=== PATIENT | male | born 1930 | race Caucasian/White ===

== ENCOUNTER 2016-10-16 15:20 | Observation (INO) | payer MEDICARE, BC ==
[~2016-10-16] VITALS: Ht 170.2 cm; Wt 90.9 kg
[2016-10-16] VITALS (8 sets, daily range): BP systolic 154–172; BP diastolic 77–91; PULSE 66–85; RESP 16–18; TEMP 97.6–98.4; O2SAT 95–100
[~2016-10-16 15:20] MED LIST: ACET500T13 PO; AGGR20025 PO; ALPR0.25 PO; ISOS30TA3 PO; PRED1SUS EACH EYE; PROP10TA6 PO; SINE25TA PO; ZOCO40TA PO
[2016-10-16] MEDS ORDERED: SODIUM CHLOR 0.9% 1000 ML INJ 1,000 ML IV ONE (15:43)
--- NOTE | 2016-10-16 15:58 | PD ---
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 Started approximately 14 45 however his states his been happening on and off all day today and he had complete resolution and then it restarted at approximately 14 45. The patient apparently is confused at baseline according to , he is very inattentive. Patient's stated that since he got better she waited until this afternoon when the symptoms recurred call Dr. Flores his neurologist and recommended over the phone to come to the emergency department. 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) Genitourinary Surgery: Yes (Bladder CA) Social History Alcohol Use: No Tobacco Use: No Substance Use: No Allergies-Medications (Allergen,Severity, Reaction): Coded Allergies: pseudoephedrine (Verified Adverse Reaction, Unknown, urinary retention, ) Reported Meds & Prescriptions Reported Meds & Active Scripts Active Reported Eliquis (Apixaban) 2.5 Mg Tab 2.5 Mg PO BID Vitamin D3 (Cholecalciferol) 1,000 Unit Tab 2,000 Units PO BID Pred Forte Opth 1% (Prednisolone Acetate Opth 1%) 1% Susp 1 Drop EACH EYE DAILY Zocor (Simvastatin) 40 Mg Tab 20 Mg PO HS Alprazolam 0.25 Mg Tab 0.25 Mg PO DAILY PRN Alprazolam 0.25 Mg Tab 0.25 Mg PO BID Sinemet (Carbidopa-Levodopa) 25-100 Mg Tab 1 Tab PO QID Isosorbide Mononitrate ER (Isosorbide Mononitrate) 30 Mg Chapis 30 Mg PO DAILY Propranolol (Propranolol HCl) 10 Mg Tab 10 Mg PO Q12HR Review of Systems Except as stated in HPI: all other systems reviewed are Neg Physical Exam Narrative GENERAL: Well-developed well-nourished no obvious distress, confused. SKIN: Focused skin assessment warm/dry. HEAD: Atraumatic. Normocephalic. EYES: Pupils equal and round. No scleral icterus. No injection or drainage. ENT: No nasal bleeding or discharge. Mucous membranes pink and moist. NECK: Trachea midline. No JVD. CARDIOVASCULAR: Regular rate and rhythm. No murmur appreciated. RESPIRATORY: No accessory muscle use. Clear to auscultation. Breath sounds equal bilaterally. GASTROINTESTINAL: Abdomen soft, non-tender, nondistended. Hepatic and splenic margins not palpable. MUSCULOSKELETAL: No obvious deformities. No clubbing. No cyanosis. No edema. NEUROLOGICAL: Awake and alert oriented to self only. Cranial nerves II through XII are grossly intact and nonfocal, mild inattention. Difficulty finding words and slow to respond. Follows commands in all 4 extremities and 5 out of 5 strength in all 4 extremity's. Total NIH stroke scale of 3. PSYCHIATRIC: Appropriate mood and affect; insight and judgment normal. Data Data Last Documented VS Vital Signs Date Time Temp Pulse Resp B/P Pulse Ox O2 Delivery O2 Flow Rate FiO2 10/16/16 17:57 97.9 66 17 167/84 99 Room Air 10/16/16 16:00 2 Orders Activity Bed Rest (10/16/16 ) Electrocardiogram (10/16/16 ) I-Stat Creatinine (10/16/16 15:43) I-Stat Profile (10/16/16 15:43) Prothrombin Time / Inr (Pt) (10/16/16 15:43) Act Partial Throm Time (Ptt) (10/16/16 15:43) Complete Blood Count With Diff (10/16/16 15:43) Fibrinogen (10/16/16 15:43) Creatine Kinase (Cpk) (10/16/16 15:43) Troponin I (10/16/16 15:43) Ua Includes Microscopic (10/16/16 15:43) Drug Screen, Random Urine (10/16/16 15:43) Type And Screen (10/16/16 15:43) Ct Brain W/O Iv Contrast(Rout) (10/16/16 ) Cta Brain W Iv Contrast W 3d (10/16/16 15:43) Cta Neck W Iv Contrast W 3d (10/16/16 15:43) Consult Neurology (10/16/16 ) Blood Glucose (10/16/16 15:43) Ecg Monitoring (10/16/16 15:43) Neuro Checks Q2HX12,Q4H (10/16/16 15:43) Nursing Bedside Swallow Assess .ONCE (10/16/16 15:43) Iv Access Insert/Monitor (10/16/16 15:43) NPO (10/16/16 15:43) Oximetry (10/16/16 15:43) Oxygen Administration (10/16/16 15:43) Sodium Chlor 0.9% 1000 Ml Inj (Ns 1000 M (10/16/16 15:43) Resp Oxygen Florin C Titrat 1-4 L (10/16/16 15:43) Cath For Specimen (10/16/16 15:43) Basic Metabolic Panel (Bmp) (10/16/16 15:43) (Hub Use Only)Inp Phy Cons/Ref (10/16/16 ) Iohexol 350 Inj (Omnipaque 350 Inj) (10/16/16 16:02) Admit Order (Ed Use Only) (10/16/16 ) Labs Laboratory Tests Test 10/16/16 10/16/16 15:48 15:50 White Blood Count 5.3 TH/MM3 Red Blood Count 4.34 MIL/MM3 Hemoglobin 13.6 GM/DL Bedside Hemoglobin 13.9 G/DL Hematocrit 39.7 % Bedside Hematocrit 41.0 % Mean Corpuscular Volume 91.4 FL Mean Corpuscular Hemoglobin 31.4 PG Mean Corpuscular Hemoglobin 34.3 % Concent Red Cell Distribution Width 14.5 % Platelet Count 145 TH/MM3 Mean Platelet Volume 8.2 FL Neutrophils (%) (Auto) 54.5 % Lymphocytes (%) (Auto) 33.1 % Monocytes (%) (Auto) 10.5 % Eosinophils (%) (Auto) 1.2 % Basophils (%) (Auto) 0.7 % Neutrophils # (Auto) 2.9 TH/MM3 Lymphocytes # (Auto) 1.7 TH/MM3 Monocytes # (Auto) 0.6 TH/MM3 Eosinophils # (Auto) 0.1 TH/MM3 Basophils # (Auto) 0.0 TH/MM3 CBC Comment DIFF FINAL Differential Comment Prothrombin Time 11.6 SEC Prothromb Time International 1.0 RATIO Ratio Activated Partial 27.1 SEC Thromboplast Time Fibrinogen 265 mg/dL Bedside Sodium 138 MMOL/L Sodium Level 138 MEQ/L Bedside Potassium 4.2 MMOL/L Potassium Level 4.2 MEQ/L Bedside Chloride 100 MMOL/L Chloride Level 103 MEQ/L Carbon Dioxide Level 27.7 MEQ/L Anion Gap 7 MEQ/L Bedside Blood Urea Nitrogen 10 MG/DL Blood Urea Nitrogen 10 MG/DL Creatinine 1.05 MG/DL Bedside Creatinine 1.0 MG/DL Estimat Glomerular Filtration 67 ML/MIN Rate Bedside Glucose 101 MG/DL Random Glucose 98 MG/DL Calcium Level 9.4 MG/DL Total Creatine Kinase 46 U/L Troponin I LESS THAN 0.02 NG/ML Blood Type A POSITIVE Antibody Screen NEGATIVE Urine Color YELLOW Urine Turbidity CLEAR Urine pH 6.5 Urine Specific [place] 1.036 Urine Protein NEG mg/dL Urine Glucose (UA) NEG mg/dL Urine Ketones NEG mg/dL Urine Occult Blood SMALL Urine Nitrite NEG Urine Bilirubin NEG Urine Urobilinogen LESS THAN 2.0 MG/DL Urine Leukocyte Esterase NEG Urine RBC 3 /hpf Urine WBC 2 /hpf Urine Squamous Epithelial <1 /hpf Cells Urine Opiates Screen NEG Urine Barbiturates Screen NEG Urine Amphetamines Screen NEG Urine Benzodiazepines Screen POS Urine Cocaine Screen NEG Urine Cannabinoids Screen NEG MDM Medical Screen Exam Complete: Yes Emergency Medical Condition: Yes Differential Diagnosis Acute CVA, subacute CVA, worsening vascular dimension, TIA Narrative Course Patient roomed emergency department, waxing and waning mental status today, coarse states that current symptoms started about 1445 which is within the stroke alert window and the patient will be stroke alerted. Patient was discussed with Dr. Matos and certainly is not a candidate for TPA. Discussed with Dr. Ayaz Howell and there is no embolic event amenable to his intervention. Patient remains with dysarthria which states is increased from baseline. Discussed with hospitalist for admission. Last 24 hours Impressions Neck CTA 10/16/16 [id number] Signed Impressions: Service Date/Time: Sunday, October 16, 2016 15:55 - CONCLUSION: 1. Mild atherosclerotic plaquing involving the carotid bifurcations and distal vertebral arteries. No hemodynamically significant carotid artery stenosis is seen. Alessandro Howell MD Head CTA 10/16/16 1543 Signed Impressions: Service Date/Time: Sunday, October 16, 2016 15:55 - CONCLUSION: No filling defects to suggest thrombus or embolus. Hai Rutherford Jr., MD Head CT 10/16/16 0000 Signed Impressions: Service Date/Time: Wednesday, October 16, 2016 15:48 - CONCLUSION: Negative for an acute process. Berto Howell MD FACR Stroke Alert NIHSS NIH Stroke Scale Result: 3 NIHSS Time Completed: 15:30 Thrombolytic Contraindications Contraindications Comment: On Eliquis, no definitive timeline, stroke less than 3 months ago. Diagnosis Diagnosis: Primary Impression: Acute ischemic stroke Admitting Physician Requests: Admit Condition: Stable Timur Pedraza MD Oct 16, 2016 15:58
--- NOTE | 2016-10-16 16:00 | RADRPT ---
EXAM DATE/TIME: 10/16/2016 15:48 [facility] COMPARISON: CT BRAIN W/O CONTRAST, August 21, 2016, 15:50. INDICATIONS : Stroke alert, dysarthria. RADIATION DOSE: 56.35 CTDIvol (mGy) This report was called by to Dr. Ramirez at 1545 MEDICAL HISTORY : Non-responsive. SURGICAL HISTORY : Non-responsive. ENCOUNTER: Initial ACUITY: 1 day PAIN SCALE: Non-responsive LOCATION: cranial TECHNIQUE: Multiple contiguous axial images were obtained of the head. Using automated exposure control and adj ustment of the mA and/or kV according to patient size, radiation dose was kept as low as reasonably a chievable to obtain optimal diagnostic quality images. DICOM format image data is available electro nically for review and comparison. FINDINGS: CEREBRUM: The ventricles are normal for age. No evidence of midline shift, mass lesion, hemorrhage or acute in farction. No extra-axial fluid collections are seen. POSTERIOR FOSSA: The cerebellum and brainstem are intact. The 4th ventricle is midline. The cerebellopontine angle i s unremarkable. EXTRACRANIAL: The visualized portion of the orbits is intact. SKULL: The calvaria is intact. No evidence of skull fracture. CONCLUSION: Negative for an acute process. Berto Howell MD FACR on October 16, 2016 at 15:57 Board Certified Radiologist. This report was verified electronically.
[2016-10-16] MEDS ORDERED: IOHEXOL 350 MG/ML 10 ML VIAL (for RAD DIAG) IV ONE (16:02)
[2016-10-16 16:04] LABS: AUTOMATED NEUTROPHIL # 2.9 TH/MM3 (1.8-7.7); BASOPHIL % 0.7 % (0.0-2.0); EOSINOPHIL # 0.1 TH/MM3 (0-0.4); EOSINOPHIL % 1.2 % (0.0-4.0); HEMATOCRIT 39.7 % (39.0-51.0); HEMO FLAGS DIFF FINAL; LYMPH % 33.1 % (9.0-44.0); LYMPHOCYTE # 1.7 TH/MM3 (1.0-4.8); MEAN CELL VOLUME 91.4 FL (80.0-100.0); MEAN CORPUSCULAR HEMOGLOBIN 31.4 PG (27.0-34.0); MEAN CORPUSCULAR HGB CONC 34.3 % (32.0-36.0); MONO % 10.5 % (0.0-8.0); NEUT % 54.5 % (16.0-70.0); PLATELET COUNT 145 TH/MM3 (150-450); RED BLOOD COUNT 4.34 MIL/MM3 (4.50-5.90); RED CELL DISTRIBUTION WIDTH 14.5 % (11.6-17.2); WHITE BLOOD COUNT 5.3 TH/MM3 (4.0-11.0)
[2016-10-16 16:06] LABS: I-STAT POTASSIUM 4.2 MMOL/L (3.5-4.9); I-STAT SODIUM 138 MMOL/L (138-146)
[2016-10-16 16:14] LABS: APTT (PATIENT) 27.1 SEC (24.3-30.1); PROTHROMBIN TIME - PATIENT 11.6 SEC (9.8-11.6)
--- NOTE | 2016-10-16 16:19 | RADRPT ---
EXAM DATE/TIME: 10/16/2016 15:55 [facility] COMPARISON: No previous studies available for comparison. INDICATIONS : Stroke alert, dysarthria. IV CONTRAST: 50 cc Omnipaque 350 (iohexol) IV ; Cumulative dose for multiple exams. RADIATION DOSE: 16.11 CTDIvol (mGy) ; Combined studies MEDICAL HISTORY : Non-responsive. SURGICAL HISTORY : Non-responsive. ENCOUNTER: Initial ACUITY: 1 day PAIN SCALE: Non-responsive LOCATION: cranial TECHNIQUE: Volumetric scanning was performed using a multi-row detector CT scanner. The data was post processed with a variety of visualization algorithms including full volume maximum intensity projection, multi -planar sliding thin slab reformation, curved planar reformation, and surface rendering techniques. Using automated exposure control and adjustment of the mA and/or kV according to patient size, radiat ion dose was kept as low as reasonably achievable to obtain optimal diagnostic quality images. DICO M format image data is available electronically for review and comparison. FINDINGS: There is excellent visualization of the major intracranial arteries out to the second-order branch ve ssels. No filling defects to suggest thrombus or embolus. Scattered atherosclerotic plaque most abund ant within the intercavernous ICAs. No hemodynamically significant stenosis observed. There is no erlin dence for aneurysm, vessel truncation or stenosis, and no evidence for vascular malformation. CONCLUSION: No filling defects to suggest thrombus or embolus. Hai Rutherford Jr., MD on October 16, 2016 at 16:13 Board Certified Radiologist. This report was verified electronically.
[2016-10-16 16:21] LABS: ANION GAP 7 MEQ/L (5-15); BICARBONATE 27.7 MEQ/L (21.0-32.0); BLOOD UREA NITROGEN 10 MG/DL (7-18); CHLORIDE 103 MEQ/L (98-107); GLOMERULAR FILTRATION RATE 67 ML/MIN (>89); POTASSIUM 4.2 MEQ/L (3.5-5.1); SODIUM (NA) 138 MEQ/L (136-145)
[2016-10-16 16:29] LABS: CREATINE KINASE 46 U/L (39-308)
[2016-10-16] MEDS ORDERED: VITA100018 PO (16:34)
[2016-10-16] MEDS ORDERED: APIX2.5T PO (16:35)
--- NOTE | 2016-10-16 16:54 | RADRPT ---
EXAM DATE/TIME: 10/16/2016 15:55 [facility] COMPARISON: CT BRAIN W/O CONTRAST, October 16, 2016, 15:48. INDICATIONS : Stroke alert, dysarthria. IV CONTRAST: 50 cc Omnipaque 350 (iohexol) IV ; Cumulative dose for multiple exams. RADIATION DOSE: 16.11 CTDIvol (mGy) ; Combined studies MEDICAL HISTORY : Non-responsive. SURGICAL HISTORY : Non-responsive. ENCOUNTER: Initial ACUITY: 1 day PAIN SCALE: Non-responsive LOCATION: neck Elevated flow velocities and ICA/CCA ratios have been found to correlate with increased degrees of vessel stenosis, calculated as percentage of diameter relative to a normal segment of distal ICA/CCA. TECHNIQUE: Volumetric scanning was performed using a multirow detector CT scanner. The data was post processed with a variety of visualization algorithms including full-volume maximum intensity projection, multip lanar sliding thin-slab reformation, curved-planar reformation, and surface-rendering techniques. Us ing automated exposure control and adjustment of the mA and/or kV according to patient size, radiatio n dose was kept as low as reasonably achievable to obtain optimal diagnostic quality images. DICOM f ormat image data is available electronically for review and comparison. FINDINGS: AORTIC ARCH: There is a three-vessel origin of the great vessels from the aorta. No evidence of ostial narrowing. RIGHT CAROTID: The common carotid is widely patent. There is mild atherosclerotic plaquing of the bifurcation. This results in minimal stenosis of the origin of the right internal carotid this is estimated to be in th e range of only approximately 10%. The external carotid is widely patent. The more cephalad portion o f internal carotid is patent throughout its course. LEFT CAROTID: The common carotid is widely patent. There is minimal plaquing at the bifurcation. No significant serina nosis is seen. The more cephalad portion of internal carotid is widely patent. The external carotid i s patent. VERTEBRALS: The vertebral arteries have a symmetric diameter. There is atherosclerotic plaquing in both distal ve rtebral arteries. No stenotic lesions are seen. CONCLUSION: 1. Mild atherosclerotic plaquing involving the carotid bifurcations and distal vertebral arteries. No hemodynamically significant carotid artery stenosis is seen. Alessandro Howell MD on October 16, 2016 at 16:49 Board Certified Radiologist. This report was verified electronically.
[2016-10-16 17:10] LABS: BLOOD, URINE SMALL (NEG); GLUCOSE,URINE NEG (NEG); KETONE, URINE NEG (NEG); NITRITE,URINE NEG (NEG); PH, URINE 6.5 (5.0-8.5); SQUAMOUS EPITHELIAL CELL URINE <1 /hpf (0-5); URINE COLOR YELLOW (YELLW/STRAW)
[2016-10-16] MEDS ORDERED: ALPRAZolam 0.25 MG TAB PO PRN (18:15)
[2016-10-16] MEDS ORDERED: SODIUM CHLORIDE 0.9% FLUSH 10 ML FLUSH IV FLUSH PRN (18:30)
[2016-10-16] MEDS ORDERED: NALOXONE HCL 0.4 MG/ML AMP IV PRN (18:30)
[2016-10-16] MEDS ORDERED: SODIUM CHLORIDE 0.9% FLUSH 5 ML FLUSH IV FLUSH PRN (18:30)
[2016-10-16] MEDS ORDERED: PROCHLORPERAZINE 25 MG SUPP RECTAL PRN (18:30)
[2016-10-16] MEDS ORDERED: LACTULOSE SYRUP 20 GM/30 ML CUP PO PRN (18:30)
[2016-10-16] MEDS ORDERED: ACETAMINOPHEN 325 MG TAB PO PRN (18:30)
[2016-10-16] MEDS ORDERED: BISACODYL 10 MG SUPP RECTAL PRN (18:30)
[2016-10-16] MEDS ORDERED: SENNOSIDES 8.6 MG TAB PO PRN (18:30)
[2016-10-16] MEDS ORDERED: GLUCAGON 1 MG/ML VIAL OTHER PRN (18:30)
[2016-10-16] MEDS ORDERED: MAGNESIUM HYDROXIDE SUSP 30 ML CUP PO PRN (18:30)
[2016-10-16] MEDS ORDERED: ONDANSETRON HCL 4 MG/2 ML VIAL IVP PRN (18:30)
--- NOTE | 2016-10-16 18:32 | HHI.HP ---
[facility] Ad[facility] Diagnosis Diagnoses: (1) Chronic anticoagulation (2) Hypertension (3) CAD (coronary artery disease) (4) Hyperlipidemia (5) Anxiety (6) Parkinsons (7) HTN (hypertension) (8) Transient ischemic attack Chief Complaint: Neuro symptoms neuro deficits Travel History International Travel<30 Days: No Contact w/Intl Traveler <30 Da: No Traveled to Known Affected Are: No History of Present Illness Patient is an 86-year-old male with a history of multiple TIAs in the past on Eliquis presents to the emergency department with acute dysarthria and difficulty finding words. Started approximately 14 45 however his states his been happening on and off all day today and he had complete resolution and then it restarted at approximately 14 45. The patient apparently is confused at baseline according to , he is very inattentive. Patient's stated that since he got better she waited until this afternoon when the symptoms recurred call Dr. Flores his neurologist and recommended over the phone to come to the emergency department. and patient state that he has stents from 1994. That are metal stents. Patient has been told that he IS not able to have an MRI Review of Systems Constitutional: COMPLAINS OF: Fatigue, DENIES: Diaphoretic episodes, Fever, Weight gain, Weight loss, Chills, Dizziness, Change in appetite Endocrine: DENIES: Heat/cold intolerance, Polydipsia, Polyuria, Polyphagia Eyes: DENIES: Blurred vision, Diplopia, Eye inflammation Ears, nose, mouth, throat: DENIES: Tinnitus, Hearing loss, Vertigo, Nasal discharge, Oral lesions, Throat pain, Hoarseness, Ear Pain Respiratory: DENIES: Apneas, Cough, Snoring, Wheezing, Hemoptysis, Sputum production Cardiovascular: DENIES: Chest pain, Palpitations, Syncope, Dyspnea on Exertion , PND, Lower Extremity Edema Gastrointestinal: DENIES: Abdominal pain, Black stools, Bloody stools, Constipation, Diarrhea Musculoskeletal: COMPLAINS OF: Neck pain, DENIES: Joint pain, Muscle aches, Stiffness, Joint Swelling, Back pain Integumentary: DENIES: Abnormal pigmentation, Nail changes Hematologic/lymphatic: DENIES: Bruising, Lymphadenopathy Immunologic/allergic: DENIES: Eczema, Urticaria Neurologic: COMPLAINS OF: Abnormal gait, Speech Problems, Tremor, DENIES: Headache, Localized weakness, Paresthesias, Seizures Psychiatric: COMPLAINS OF: Confusion, DENIES: Anxiety, Mood changes, Depression, Hallucinations, Agitation, Suicidal Ideation, Homicidal Ideation Past Family Social History Past Medical History Chronic anticoagulation with Eliquis Bladder cancer History of cardiac catheterization with stents 2 bare-metal of 1994 Hyperlipidemia History of chemotherapy for bladder cancer History of 3 prior TIAs 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 Past Surgical History Cardiac surgery and history of [place] and history of stents 2 History of corneal transplant History of bladder cancer surgery Reported Medications Reported Meds & Active Scripts Active Reported Eliquis (Apixaban) 2.5 Mg Tab 2.5 Mg PO BID Vitamin D3 (Cholecalciferol) 1,000 Unit Tab 2,000 Units PO BID Pred Forte Opth 1% (Prednisolone Acetate Opth 1%) 1% Susp 1 Drop EACH EYE DAILY Zocor (Simvastatin) 40 Mg Tab 20 Mg PO HS Alprazolam 0.25 Mg Tab 0.25 Mg PO DAILY PRN Alprazolam 0.25 Mg Tab 0.25 Mg PO BID Sinemet (Carbidopa-Levodopa) 25-100 Mg Tab 1 Tab PO QID Isosorbide Mononitrate ER (Isosorbide Mononitrate) 30 Mg Chapis 30 Mg PO DAILY Propranolol (Propranolol HCl) 10 Mg Tab 10 Mg PO Q12HR Allergies: Coded Allergies: pseudoephedrine (Verified Adverse Reaction, Unknown, urinary retention, ) Active Ordered Medications Current Medications Medications (Trade) Dose Ordered Sig/Redd Route PRN Reason Start Time Stop Time Status Last Admin Dose Admin Sodium Chloride (NS 1000 ml Inj) 1,000 ml @ 70 mls/hr [id number] ONCE IV 10/16/16 15:43 10/17/16 06:00 10/16/16 16:00 Current Medications Sodium Chloride (NS 1000 ml Inj) 1,000 ml @ 70 mls/hr [id number] ONCE IV Last administered on 10/16/16t 16:00; Start 10/16/16 at 15:43; Stop 10/17/16 at 06:00 Iohexol (Omnipaque 350 Inj) 50 ml STK-MED ONCE IV Last administered on t 16:02; Start 10/16/16 at 16:02; Stop 10/16/16 at 16:03; Status DC Family History Hypertension Social History Denies any tobacco alcohol or illicits Physical Exam Vital Signs Vital Signs Date Time Temp Pulse Resp B/P Pulse Ox O2 Delivery O2 Flow Rate FiO2 10/16/16 17:57 97.9 66 17 167/84 99 Room Air 10/16/16 16:30 97.8 78 16 158/82 99 Room Air 10/16/16 16:00 97.8 68 17 161/77 98 Room Air 2 10/16/16 15:46 98 Nasal Cannula 2 10/16/16 15:46 70 18 99 Room Air 10/16/16 15:44 68 17 97 Room Air 10/16/16 15:28 98.4 84 16 154/91 99 Physical Exam GENERAL: This is a well-nourished, well-developed patient, in no apparent distress. SKIN: No rashes, ecchymoses or lesions. Cool and dry. HEAD: Atraumatic. Normocephalic. No temporal or scalp tenderness. EYES: Pupils equal round and reactive. Extraocular motions intact. No scleral icterus. No injection or drainage. ENT: Nose without bleeding, purulent drainage or septal hematoma. Throat without erythema, tonsillar hypertrophy or exudate. Uvula midline. Airway patent. NECK: Trachea midline. No JVD or lymphadenopathy. Supple, nontender, no meningeal signs. CARDIOVASCULAR: Regular rate and rhythm without murmurs, gallops, or rubs. RESPIRATORY: Clear to auscultation. Breath sounds equal bilaterally. No wheezes , rales, or rhonchi. GASTROINTESTINAL: Abdomen soft, non-tender, nondistended. No hepato-splenomegaly , or palpable masses. No guarding. MUSCULOSKELETAL: Extremities without clubbing, cyanosis, or edema. No joint tenderness, effusion, or edema noted. No calf tenderness. Negative Homans sign bilaterally. NEUROLOGICAL: Awake and alert. Cranial nerves II through XII intact. Motor and sensory grossly within normal limits. Five out of 5 muscle strength in all muscle groups. Normal speech. Laboratory Laboratory Tests Test 10/16/16 10/16/16 15:48 15:50 White Blood Count 5.3 Red Blood Count 4.34 Hemoglobin 13.6 Bedside Hemoglobin 13.9 Hematocrit 39.7 Bedside Hematocrit 41.0 Mean Corpuscular Volume 91.4 Mean Corpuscular Hemoglobin 31.4 Mean Corpuscular Hemoglobin 34.3 Concent Red Cell Distribution Width 14.5 Platelet Count 145 Mean Platelet Volume 8.2 Neutrophils (%) (Auto) 54.5 Lymphocytes (%) (Auto) 33.1 Monocytes (%) (Auto) 10.5 Eosinophils (%) (Auto) 1.2 Basophils (%) (Auto) 0.7 Neutrophils # (Auto) 2.9 Lymphocytes # (Auto) 1.7 Monocytes # (Auto) 0.6 Eosinophils # (Auto) 0.1 Basophils # (Auto) 0.0 CBC Comment DIFF FINAL Differential Comment Prothrombin Time 11.6 Prothromb Time International 1.0 Ratio Activated Partial 27.1 Thromboplast Time Fibrinogen 265 Bedside Sodium 138 Sodium Level 138 Bedside Potassium 4.2 Potassium Level 4.2 Bedside Chloride 100 Chloride Level 103 Carbon Dioxide Level 27.7 Anion Gap 7 Bedside Blood Urea Nitrogen 10 Blood Urea Nitrogen 10 Creatinine 1.05 Bedside Creatinine 1.0 Estimat Glomerular Filtration 67 Rate Bedside Glucose 101 Random Glucose 98 Calcium Level 9.4 Total Creatine Kinase 46 Troponin I LESS THAN 0.02 Blood Type A POSITIVE Antibody Screen NEGATIVE Urine Color YELLOW Urine Turbidity CLEAR Urine pH 6.5 Urine Specific Union 1.036 Urine Protein NEG Urine Glucose (UA) NEG Urine Ketones NEG Urine Occult Blood SMALL Urine Nitrite NEG Urine Bilirubin NEG Urine Urobilinogen LESS THAN 2.0 Urine Leukocyte Esterase NEG Urine RBC 3 Urine WBC 2 Urine Squamous Epithelial <1 Cells Urine Opiates Screen NEG Urine Barbiturates Screen NEG Urine Amphetamines Screen NEG Urine Benzodiazepines Screen POS Urine Cocaine Screen NEG Urine Cannabinoids Screen NEG Result Diagram: 10/16/16 1548 10/16/16 1548 Imaging Last Impressions Neck CTA 10/16/16 1543 Signed Impressions: Service Date/Time: Sunday, October 16, 2016 15:55 - CONCLUSION: 1. Mild atherosclerotic plaquing involving the carotid bifurcations and distal vertebral arteries. No hemodynamically significant carotid artery stenosis is seen. Alessandro Howell MD Head CTA 10/16/16 1543 Signed Impressions: Service Date/Time: Sunday, October 16, 2016 15:55 - CONCLUSION: No filling defects to suggest thrombus or embolus. Hai Rutherford Jr., MD Head CT 10/16/16 0000 Signed Impressions: Service Date/Time: Sunday, October 16, 2016 15:48 - CONCLUSION: Negative for an acute process. Berto Howell MD FACR Assessment and Plan Problem List: (1) Parkinsons ICD Code: G20 Status: Acute (2) HTN (hypertension) ICD Code: I10 Status: Acute (3) Transient ischemic attack ICD Code: G45.9 Status: Acute (4) Chronic anticoagulation ICD Code: Z79.01 Status: Acute (5) Hypertension ICD Code: I10 Status: Acute (6) Hyperlipidemia ICD Code: E78.5 Status: Acute (7) CAD (coronary artery disease) ICD Code: I25.10 Status: Acute (8) Anxiety ICD Code: F41.9 Status: Acute Assessment and Plan Patient is a 86-year-old male with history of multiple TIAs on chronic Eliquis presents emergency department with acute dysarthria and difficulty word finding. Started at about 1445. But states it's been happening on and off all day had resolution and restarted again about 1445 patient has chronic confusion at baseline patient called Dr. Flores his neurologist recommend the patient to come to the emergency department In the emergency department. 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
[2016-10-16] MEDS: SODIUM CHLOR 0.9% 1000 ML INJ 1,000 ML IV SCH (18:51)
[2016-10-16] MEDS ORDERED: DEXTROSE 50% IN WATER 50 ML SYRINGE IV PUSH PRN (19:00)
[2016-10-16] MEDS ORDERED: PILL SPLITTER OTHER PRN (19:45)
[2016-10-16] MEDS: prednisoLONE ACETATE 1% OPHT SUSP 5 ML BTL EACH EYE SCH (20:00)
--- NOTE | 2016-10-16 20:49 | MB ---
cc: [facility] DATE OF CONSULTATION 10/16/16 HISTORY OF PRESENT ILLNESS An 86-year-old right-handed man with a history of Parkinson's disease, some dementia, cardiac stent in the , [place], cancer in the bladder 2000. He has had three episodes prior of some change in mental status, some slurred speech. He was actually seen by Dr. Jauregui in July of this year here. He thought maybe some facial weakness, speech change. He seemed to improve. He was on aspirin and Plavix at home. He had switched him back to the Aggrenox. The family thought he could not have an MRI because of the stents in his heart in the , however, I am not so sure if that is true. The family had denied Coumadin, but he was recently put on Eliquis. Nevertheless, today he had an episode of slurred speech, difficulty finding words or getting them out on and off all day long. The patient had some confusion. MEDICATIONS At home 1. Eliquis 2.5 b.i.d. 2. Vitamin D. 3. Zocor. 4. Xanax 0.25 b.i.d. and p.r.n. 5. Sinemet 25/100 q.i.d. 6. Isosorbide 7. Propranolol REVIEW OF SYSTEMS No hypertension, diabetes, hypercholesterolemia, known definite A fib, renal, hepatic, pulmonary disease, thyroid disease, lupus, ulcer, cancer, seizure. No definite stroke in the past. SOCIAL HISTORY Not a smoker or drinker, lives with his . FAMILY HISTORY Negative for cancer seizure, stroke. PHYSICAL EXAMINATION VITAL SIGNS: On exam afebrile, 66, 17, 167/84. NECK: No carotid bruits. HEART: Regular rhythm. I did not detect a murmur. Pupils are equal. Visual rowan are full. Extraocular movements intact without nystagmus. Face symmetric. Tongue was midline. No drift. Normal strength in upper and lower extremities bilaterally. Toes downgoing bilaterally. Pinprick is intact throughout. DTRs are trace to absent throughout. He is off on the year. He did know the month. He knows he is at [place]. Repetition and naming was normal. Speech is fluent at this time, a little hypophonic. He has some intention and resting tremors of the upper extremities bilaterally. There is no aphasia at this time. IMAGING STUDIES CTA of the head was normal. CTA of the neck was all normal. CAT scan of the brain, nothing acute. He had a carotid ultrasound that was negative in the past. Review of the head CT from today shows some atrophy, not inconsistent with his age. No old strokes are noted. Minimal white matter changes are seen but no major cortical infarcts. LABORATORY DATA CBC is normal. Urine drug screen has been positive for benzos only in the past and today. UA essentially negative. Basic metabolic profile is normal. Troponin is negative. LDL cholesterol normal last time. IMPRESSION I am not so sure these are TIAs as much as they could be. Just a decompensation of his parkinsonism. We will check a B12 level and a sed rate and an electroencephalogram. I would like to get an MRI on him. I think it would be okay with the stents. 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 I would increase his Sinemet to 1 1/2 pills q.i.d. I will be following him with you in the hospital. I note he has been on Eliquis 2.5 b.i.d. at home. MD VEE Lancaster/ /7:01 PM /8:33 PM
[2016-10-16] MEDS ORDERED: SODIUM CHLORIDE 0.9% FLUSH 5 ML FLUSH IV FLUSH SCH (21:00)
[2016-10-16] MEDS ORDERED: CARBIDOPA/LEVODOPA 25 MG/100 MG TAB PO SCH (21:00)
[2016-10-16] MEDS: INSULIN ASPART SUPPLEMENTAL SCALE SQ SCH (21:00)
[2016-10-16] MEDS: SODIUM CHLORIDE 0.9% FLUSH 10 ML FLUSH IV FLUSH SCH (22:28)
[2016-10-16] MEDS: DOCUSATE SODIUM 50 MG/SENNA 8.6 MG TAB PO SCH (22:29)
[2016-10-16] MEDS: APIXABAN 2.5 MG TABLET PO SCH (22:29)
[2016-10-16] MEDS: PROPRANOLOL HCL 10 MG TAB PO SCH (22:29)
[2016-10-16] MEDS: CARBIDOPA/LEVODOPA 25 MG/100 MG TAB PO SCH (22:30)
[2016-10-16] MEDS: PRAVASTATIN SOD 40 MG TAB PO SCH (22:30)
[2016-10-16] MEDS: ALPRAZolam 0.25 MG TAB PO SCH (22:31)
[2016-10-16] MEDS: CHOLECALCIFEROL (VIT D3) 1000 UNIT TAB PO SCH (22:32)
[2016-10-17] VITALS (9 sets, daily range): BP systolic 122–185; BP diastolic 71–86; PULSE 63–73; RESP 16–19; TEMP 97.3–98; O2SAT 95–98
[2016-10-17 00:25] LABS: CREATINE KINASE 36 U/L (39-308)
[2016-10-17] MEDS: SODIUM CHLOR 0.9% 1000 ML INJ 1,000 ML IV SCH ×3 (04:00→19:15)
[2016-10-17] MEDS: INSULIN ASPART SUPPLEMENTAL SCALE SQ SCH ×4 (06:45→21:00)
[2016-10-17 06:49] LABS: PROTHROMBIN TIME - PATIENT 11.4 SEC (9.8-11.6)
[2016-10-17 07:00] LABS: BASOPHIL % 0.6 % (0.0-2.0); EOSINOPHIL # 0.1 TH/MM3 (0-0.4); EOSINOPHIL % 1.4 % (0.0-4.0); HEMATOCRIT 38.6 % (39.0-51.0); LYMPH % 34.7 % (9.0-44.0); LYMPHOCYTE # 1.9 TH/MM3 (1.0-4.8); MEAN CELL VOLUME 90.6 FL (80.0-100.0); MEAN CORPUSCULAR HEMOGLOBIN 31.7 PG (27.0-34.0); MONO % 10.3 % (0.0-8.0); PLATELET COUNT 123 TH/MM3 (150-450); RED BLOOD COUNT 4.27 MIL/MM3 (4.50-5.90); RED CELL DISTRIBUTION WIDTH 14.3 % (11.6-17.2); WHITE BLOOD COUNT 5.6 TH/MM3 (4.0-11.0)
[2016-10-17 07:06] LABS: ALT (GPT) 8 U/L (12-78); AST (GOT) 12 U/L (15-37); MAGNESIUM 2.2 MG/DL (1.5-2.5)
[2016-10-17 07:15] LABS: ALKALINE PHOSPHATASE 49 U/L (45-117); FREE T4 1.04 NG/DL (0.76-1.46); HDL CHOLESTEROL 42.2 MG/DL (40.0-60.0); INDIRECT BILIRUBIN 0.4 MG/DL (0.0-0.8); LDL CHOLESTEROL 37 MG/DL (0-99); TOTAL BILIRUBIN ADULT 0.6 MG/DL (0.2-1.0)
[2016-10-17 07:18] LABS: CREATINE KINASE 29 U/L (39-308)
[2016-10-17 07:33] LABS: HEMO FLAGS AUTO DIFF; SCAN/DIFF AUTO DIFF CONFIRMED
[2016-10-17] MEDS: SODIUM CHLORIDE 0.9% FLUSH 10 ML FLUSH IV FLUSH SCH ×3 (09:00→20:18)
[2016-10-17] MEDS: ISOSORBIDE MONONITRATE 30 MG TAB PO SCH (09:44)
[2016-10-17] MEDS: PROPRANOLOL HCL 10 MG TAB PO SCH ×2 (09:44→20:19)
[2016-10-17] MEDS: CHOLECALCIFEROL (VIT D3) 1000 UNIT TAB PO SCH ×2 (09:45→20:18)
[2016-10-17] MEDS: APIXABAN 2.5 MG TABLET PO SCH ×2 (09:46→20:19)
[2016-10-17] MEDS: DOCUSATE SODIUM 50 MG/SENNA 8.6 MG TAB PO SCH ×2 (09:47→20:19)
[2016-10-17] MEDS: ALPRAZolam 0.25 MG TAB PO SCH ×2 (09:48→20:18)
[2016-10-17] MEDS: CARBIDOPA/LEVODOPA 25 MG/100 MG TAB PO SCH ×4 (09:48→20:19)
[2016-10-17] MEDS: prednisoLONE ACETATE 1% OPHT SUSP 5 ML BTL EACH EYE SCH (09:49)
[2016-10-17] MEDS ORDERED: PRED1SUS RIGHT EYE (09:56)
--- NOTE | 2016-10-17 10:04 | HHI.PR ---
Subjective Remarks FEELING BETTER NO NEW CO Objective Vital Signs Date Time Temp Pulse Resp B/P Pulse Ox O2 Delivery O2 Flow Rate FiO2 10/17/16 08:48 98.0 68 18 185/86 97 10/17/16 06:26 21 10/17/16 04:01 66 10/17/16 01:09 73 10/16/16 22:51 85 10/16/16 22:00 97.6 75 18 172/88 95 10/16/16 18:38 100 Nasal Cannula 2.00 10/16/16 17:57 97.9 66 17 167/84 99 Room Air 10/16/16 16:30 97.8 78 16 158/82 99 Room Air 10/16/16 16:00 97.8 68 17 161/77 98 Room Air 2 10/16/16 15:46 98 Nasal Cannula 2 10/16/16 15:46 70 18 99 Room Air 10/16/16 15:44 68 17 97 Room Air 10/16/16 15:28 98.4 84 16 154/91 99 I/O 10/16/16 10/16/16 10/16/16 10/17/16 10/17/16 10/17/16 07:00 15:00 23:00 07:00 15:00 23:00 Output Total 800 ml 350 ml Balance -800 ml -350 ml Output Urine Total 800 ml 350 ml # Voids 1 Result Diagram: 10/17/16 0620 10/16/16 1548 Objective Remarks awake alert mild tremor walked better this am voice strong Assessment and Plan Assessment and Plan imp better on 1.5 qid sinemet do mri i dw cards cardiac stents ok if neg ok dc and fu dr neal op needs bp better control b4 Santos Moralez MD Oct 17, 2016 10:04
[2016-10-17 13:56] LABS: HEMOGLOBIN A1a 1.2 %; HEMOGLOBIN A1b 0.8 %; HEMOGLOBIN Ao 86.4 %; HEMOGLOBIN F 0.8 %; HEMOGLOBIN LA1C 1.8 %; HEMOGLOBIN P3 3.3 %
[2016-10-17 13:57] LABS: HEMOGLOBIN A1a 1.1 %; HEMOGLOBIN A1b 0.8 %; HEMOGLOBIN Ao 86.4 %; HEMOGLOBIN F 0.7 %; HEMOGLOBIN P3 3.2 %
--- NOTE | 2016-10-17 14:42 | HHI.PR ---
Subjective Remarks Follow up for TIA. Mr. Campbell is doing well, surrounded by family members. Patient and family wants to go home. He is back to his baseline. No chest pain, SOB, fever, chills. Waiting for MRI. Later in the afternoon, patient was discharged after MRI showed no acute findings. However, prior to discharge, patient apparently had dysarthria again. Stroke alert was called. CT head revealed no acute findings. Neurology evaluated patient again and recommended increasing Apixaban from 2.5mg to 5mg BID. Also, EEG was obtained. Objective Vitals Vital Signs Date Time Temp Pulse Resp B/P Pulse Ox O2 Delivery O2 Flow Rate FiO2 10/17/16 11:33 97.5 66 16 144/71 97 10/17/16 08:48 98.0 68 18 185/86 97 10/17/16 06:26 21 10/17/16 04:01 66 10/17/16 01:09 73 10/16/16 22:51 85 10/16/16 22:00 97.6 75 18 172/88 95 10/16/16 18:38 100 Nasal Cannula 2.00 10/16/16 17:57 97.9 66 17 167/84 99 Room Air 10/16/16 16:30 97.8 78 16 158/82 99 Room Air 10/16/16 16:00 97.8 68 17 161/77 98 Room Air 2 10/16/16 15:46 98 Nasal Cannula 2 10/16/16 15:46 70 18 99 Room Air 10/16/16 15:44 68 17 97 Room Air 10/16/16 15:28 98.4 84 16 154/91 99 I/O 10/16/16 10/16/16 10/16/16 10/17/16 10/17/16 10/17/16 06:59 14:59 22:59 06:59 14:59 22:59 Output Total 800 ml 350 ml Balance -800 ml -350 ml Output Urine Total 800 ml 350 ml # Voids 1 Result Diagram: 10/17/16 0620 10/16/16 1548 Imaging Last Impressions Head CT 10/17/16 0600 Signed Impressions: Service Date/Time: Monday, October 17, 2016 18:04 - CONCLUSION: Slight atrophic and small vessel ischemic changes without any evidence for acute hemorrhage or mass effect. Renee Mendez MD Brain MRI 10/17/16 0000 Signed Impressions: Service Date/Time: Monday, October 17, 2016 14:55 - CONCLUSION: Chronic atrophic and small vessel ischemic changes without any evidence for acute hemorrhage or mass effect. Renee Mendez MD Neck CTA 10/16/16 1543 Signed Impressions: Service Date/Time: Sunday, October 16, 2016 15:55 - CONCLUSION: 1. Mild atherosclerotic plaquing involving the carotid bifurcations and distal vertebral arteries. No hemodynamically significant carotid artery stenosis is seen. Alessandro Howell MD Head CTA 10/16/16 1543 Signed Impressions: Service Date/Time: Sunday, October 16, 2016 15:55 - CONCLUSION: No filling defects to suggest thrombus or embolus. Hai Rutherford Jr., MD Objective Remarks GENERAL: Alert, NAD. SKIN: Warm and dry. HEAD: Normocephalic. EYES: No scleral icterus. No injection or drainage. NECK: Supple, trachea midline. No JVD or lymphadenopathy. CARDIOVASCULAR: Regular rate and rhythm without murmurs, gallops, or rubs. RESPIRATORY: Breath sounds equal bilaterally. No accessory muscle use. GASTROINTESTINAL: Abdomen soft, non-tender, nondistended. MUSCULOSKELETAL: No cyanosis, or edema. BACK: Nontender without obvious deformity. No CVA tenderness. Procedures EEG 10/17/2016 IMPRESSION: Diffuse slowing consistent with a mild to moderate diffuse encephalopathy but no focal abnormality was noted. No seizure activity was seen. A/P Problem List: (1) Parkinsons ICD Code: G20 Status: Acute (2) HTN (hypertension) ICD Code: I10 Status: Acute (3) Transient ischemic attack ICD Code: G45.9 Status: Acute (4) Chronic anticoagulation ICD Code: Z79.01 Status: Acute (5) Hypertension ICD Code: I10 Status: Acute (6) Hyperlipidemia ICD Code: E78.5 Status: Acute (7) CAD (coronary artery disease) ICD Code: I25.10 Status: Acute (8) Anxiety ICD Code: F41.9 Status: Acute Assessment and Plan Patient is an 86-year-old male with a history of multiple TIAs in the past on Eliquis presents to the emergency department with acute dysarthria and difficulty finding words. Patient underwent CT head, CTA of head and neck, MRI brain - none of these studies showed any acute findings. TIA was suspected. Patient was recommended to continue Apixaban 2.5mg BID. Prior to our planned discharge on 10/17/2016, patient again had another episode of dysarthria. Neurology recommended increasing dose of Apixaban and started Keppra. EEG showed no evidence of epileptic activity. - Probable TIA - Dysarthria without other focal neurological deficits - Possible seizure activity. - Neurology is following. Radiological studies so far unremarkable for any acute findings. - Neurology increased Apixaban 5mg which is consistent with the recommended dose. - Patient is above 80 but he is also above 60kg and creatinine is not above 1.5. Parkinson's disease - Continue Carbidopa-Levodopa 25-100 mg 1.5 Tablet PO QID. - Coronary artery disease - s/p stent placement. - Suspected or paroxysmal Afib - follows up with Marketing Account Executive Dr. Arndt. - Continue Apixaban 5mg BID. - Continue Isosorbide Mononitrate, Pravastatin 40mg QHS. - NS @ 75cc/hour. Full code. Apixaban. Mich Walton DO Oct 17, 2016 14:42
[2016-10-17] MEDS ORDERED: GADODIAMIDE PF 287 MG/ML 20 ML VIAL (for RAD MRI) IV ONE (15:14)
--- NOTE | 2016-10-17 15:31 | RADRPT ---
EXAM DATE/TIME: 10/17/2016 14:55 [facility] COMPARISON: CT BRAIN W/O CONTRAST, October 16, 2016, 15:48. INDICATIONS : Altered mental status. CONTRAST: 18 cc Omniscan (gadodiamide) IV MEDICAL HISTORY : Parkinson's. Cardiovascular disease SURGICAL HISTORY : Coronary artery stent. Corneal transplant, partial bladder removal ENCOUNTER: Initial ACUITY: 1 day PAIN SCORE: 0/10 LOCATION: cranial TECHNIQUE: Multiplanar, multisequence MRI of the brain was performed both prior to and following the administrat ion of paramagnetic contrast. FINDINGS: There is no evidence for intracranial hemorrhage, mass effect, mass lesions, edema, or extra-axial fl uid collections. There are no signs of acute infarction for technique. The diffusion portion is unre markable. Slight degree of brain atrophy is seen. Moderate periventricular white matter changes are s een nonspecific mostly consistent with chronic small vessel ischemic changes with numerous punctate l acunar infarctions in bilateral basal ganglia. CONCLUSION: Chronic atrophic and small vessel ischemic changes without any evidence for acute hem orrhage or mass effect. Renee Mendez MD on October 17, 2016 at 15:26 Board Certified Radiologist. This report was verified electronically.
--- NOTE | 2016-10-17 15:40 | EKG ---
Date Performed: 10/16/2016 Time Performed: 16:50:32 PTAGE: 86 years EKG: Sinus rhythm RIGHT BUNDLE BRANCH BLOCK ABNORMAL ECG PREVIOUS TRACING : 08/21/2016 16.06.43 Since previous tracing, no significant change noted DOCTOR: Ilan Aceves Interpretating Date/Time 10/17/2016 15:39:43
--- NOTE | 2016-10-17 18:23 | RADRPT ---
EXAM DATE/TIME: 10/17/2016 18:04 [facility] COMPARISON: MRI BRAIN W & W/O CONTRAST, October 17, 2016, 14:55. CT BRAIN W/O CONTRAST, October 16, 2016, 15:48. INDICATIONS : Stroke alert; dysphasia. RADIATION DOSE: 36.49 CTDIvol (mGy) This report was called by myself to Dr. Pitts at 6: 20 hours MEDICAL HISTORY : Non-responsive. SURGICAL HISTORY : Non-responsive. ENCOUNTER: Initial ACUITY: 1 day PAIN SCALE: Non-responsive LOCATION: cranial TECHNIQUE: Multiple contiguous axial images were obtained of the head. Using automated exposure control and adj ustment of the mA and/or kV according to patient size, radiation dose was kept as low as reasonably a chievable to obtain optimal diagnostic quality images. DICOM format image data is available electro nically for review and comparison. FINDINGS: There is no evidence for intracranial hemorrhage, mass effect, mass lesions, or edema. The visualize d bony structures appear intact. Slight degree of brain atrophy is seen. Slight periventricular whit e matter changes are seen nonspecific mostly consistent with chronic small vessel ischemic changes. There are no signs of acute infarction for technique. CONCLUSION: Slight atrophic and small vessel ischemic changes without any evidence for acute hemorrhage or mass effect. Renee Mendez MD on October 17, 2016 at 18:20 Board Certified Radiologist. This report was verified electronically.
[2016-10-17] MEDS ORDERED: SODIUM CHLOR 0.9% 1000 ML INJ 1,000 ML IV SCH (18:34)
--- NOTE | 2016-10-17 18:44 | HHI.PR ---
Subjective Remarks ctsp cva alert called trouble talking again and was staring off mri brain today neg ctax2 neg yest now improving ct brain tonight ok I ? sz? plan inc eliquis to 5 bid add keppra ivf eeg now can repeat name 07/03 t/o smile sym still some trouble getting his thoughts out will fu Objective Vital Signs Date Time Temp Pulse Resp B/P Pulse Ox O2 Delivery O2 Flow Rate FiO2 10/17/16 18:36 97.7 64 19 185/83 97 10/17/16 17:51 66 122/71 10/17/16 15:32 97.3 73 16 137/73 95 10/17/16 11:33 97.5 66 16 144/71 97 10/17/16 08:48 98.0 68 18 185/86 97 10/17/16 06:26 21 10/17/16 04:01 66 10/17/16 01:09 73 10/16/16 22:51 85 10/16/16 22:00 97.6 75 18 172/88 95 I/O 10/16/16 10/16/16 10/16/16 10/17/16 10/17/16 10/17/16 07:00 15:00 23:00 07:00 15:00 23:00 Output Total 800 ml 350 ml Balance -800 ml -350 ml Output Urine Total 800 ml 350 ml # Voids 1 Result Diagram: 10/17/16 0620 10/16/16 1548 Objective Remarks awake alert mild tremor walked better this am voice strong Assessment and Plan Assessment and Plan imp better on 1.5 qid sinemet do mri i dw cards cardiac stents ok if neg ok dc and fu dr neal op needs bp better control b4 dc Santos Pitts MD Oct 17, 2016 18:44
[2016-10-17] MEDS ORDERED: levETIRAcetam 1000 MG INJ 100 ML IV SCH (18:45)
[2016-10-17 19:17] LABS: I-STAT POTASSIUM 5.2 MMOL/L (3.5-4.9)
[2016-10-17 19:38] LABS: BLOOD GAS BASE EXCESS 1.7 mmol/L (-2-2); BLOOD GAS CARBOXYHEMOGLOBIN 1.6 % (0-4); BLOOD GAS HCO3 26 mmol/L (22-26); BLOOD GAS METHEMOGLOBIN 0.6 % (0-2); BLOOD GAS O2 HGB SATURATION 92 % (90-100); BLOOD GAS OXYGEN CONTENT 16.9 Vol % (12.0-20.0); BLOOD GAS PCO2 43 mmHg (38-42); BLOOD GAS PO2 66 mmHG (61-120); BLOOD GAS TOTAL HGB 13.1 G/DL (12.0-16.0); CRITICAL VALUE NO; TEMP CORR TO 98.6
[2016-10-17 19:39] LABS: DRAW SITE RT RADIAL; FIO2 21 %; NUMBER OF ARTERIAL PUNCTURES 1; OXYGEN DEVICE ROOM AIR; STAT YES; ULNAR PULSE PRESENT
--- NOTE | 2016-10-17 20:10 | MG ---
cc: CHRISTAL ALICEA M.D. Lab No: [id number] Date: Age: Sex: M Race: HISTORY: Multiple TIAs. Parkinson's disease. Episodes of difficulty expressing himself. DESCRIPTION OF THE RECORDIN to 8 Hz posterior rhythm is seen. There is a little bit of a wandering baseline over the left occipital head region. I do not see any epileptiform or seizure activity. There is some diffuse slowing. Photic stimulation performed with some mild amount of posterior driving in some of the higher frequencies. IMPRESSION: Diffuse slowing consistent with a mild to moderate diffuse encephalopathy but no focal abnormality was noted. No seizure activity was seen. MD VEE [place] /7:56 PM /8:03 PM
[2016-10-17] MEDS: PRAVASTATIN SOD 40 MG TAB PO SCH (20:19)
[2016-10-18] VITALS (8 sets, daily range): BP systolic 94–182; BP diastolic 53–86; PULSE 72–79; RESP 16–18; TEMP 97.6–98.5; O2SAT 93–100
[2016-10-18] MEDS: SODIUM CHLOR 0.9% 1000 ML INJ 1,000 ML IV SCH ×3 (01:00→11:00)
--- NOTE | 2016-10-18 04:37 | MG ---
cc: CHRISTAL ALICEA Sex: M [id number] INTRODUCTION: An 78 year-old man. Parkinson's. Difficulty speaking, possible seizure. DESCRIPTION: At times a 10 hertz posterior rhythm is seen. Diffuse 7 hertz slowing is at times noted. Very small sharps are seen over the bitemporal head region, at times a little bit more on the right than the left, almost looked artifactual, epoch 21 on the transverse montage. Somewhat of a wandering baseline over the left posterior head region and some small spikes within that, not sure they are not tiny muscle artifact at epoch 36 over the bilateral occipital head regions. I wonder if they are not small tremors as the head is noted to be tremoring. I think these do represent muscle tremors and muscle artifact coming in at about 6 hertz. They look to be occipital on the bipolar and bilateral temporal on the transverse, then they seem to disappear. IMPRESSION: The discharges appear to be muscle artifact from the head tremor. They do not appear to be seizure activity, otherwise general unremarkable recording with some mild diffuse theta slowing. MD VEE [place]/KRISTIE /11:25 PM /3:59 AM
[2016-10-18 05:29] LABS: PROTHROMBIN TIME - PATIENT 11.6 SEC (9.8-11.6)
[2016-10-18] MEDS: INSULIN ASPART SUPPLEMENTAL SCALE SQ SCH ×4 (05:54→21:00)
[2016-10-18] MEDS ORDERED: cloNIDine HCL 0.1 MG TAB PO PRN (07:30)
--- NOTE | 2016-10-18 07:54 | HHI.PR ---
Subjective Remarks Follow up for TIA. Patient is resting well in bed. He did wake up and ate something but then went back to sleep. Family at bedside. No fever, chills. Objective Vitals Vital Signs Date Time Temp Pulse Resp B/P Pulse Ox O2 Delivery O2 Flow Rate FiO2 10/18/16 07:12 74 16 182/86 96 10/18/16 03:21 97.6 72 18 180/79 98 10/18/16 02:37 21 10/18/16 00:01 97.6 79 18 161/79 97 10/17/16 20:01 98.0 65 18 159/76 98 10/17/16 19:52 63 10/17/16 18:36 97.7 64 19 185/83 97 10/17/16 17:51 66 122/71 10/17/16 15:32 97.3 73 16 137/73 95 10/17/16 11:33 97.5 66 16 144/71 97 10/17/16 08:48 98.0 68 18 185/86 97 I/O 10/17/16 10/17/16 10/17/16 10/18/16 10/18/16 10/18/16 06:59 14:59 22:59 06:59 14:59 22:59 Intake Total 750 ml Output Total 350 ml Balance -350 ml 750 ml Intake IV Total 750 ml Output Urine Total 350 ml Result Diagram: 10/17/1661910/16/16 1548 Imaging Last Impressions Head Magnetic Resonance Angiography 10/18/16599 Signed Impressions: Service Date/Time: Tuesday, October 18, 2016 07:30 - CONCLUSION: 1. No large vessel stenosis or thrombus. 2. Scattered atherosclerotic changes. Travon Butler MD Brain MRI 10/18/16599 Signed Impressions: Service Date/Time: Tuesday, October 18, 2016 07:30 - CONCLUSION: 1. Chronic ischemic small vessel vasculopathy. 2. No acute infarction identified. Travon Butler MD Head CT 10/17/16599 Signed Impressions: Service Date/Time: Monday, October 17, 2016 18:04 - CONCLUSION: Slight atrophic and small vessel ischemic changes without any evidence for acute hemorrhage or mass effect. Renee Mendez MD Neck CTA 10/16/16 1543 Signed Impressions: Service Date/Time: Sunday, October 16, 2016 15:55 - CONCLUSION: 1. Mild atherosclerotic plaquing involving the carotid bifurcations and distal vertebral arteries. No hemodynamically significant carotid artery stenosis is seen. Alessandro Howell MD Head CTA 10/16/16 1543 Signed Impressions: Service Date/Time: Sunday, October 16, 2016 15:55 - CONCLUSION: No filling defects to suggest thrombus or embolus. Hai Rutherford Jr., MD Objective Remarks GENERAL: Alert, NAD. SKIN: Warm and dry. HEAD: Normocephalic. EYES: No scleral icterus. No injection or drainage. NECK: Supple, trachea midline. No JVD or lymphadenopathy. CARDIOVASCULAR: Regular rate and rhythm without murmurs, gallops, or rubs. RESPIRATORY: Breath sounds equal bilaterally. No accessory muscle use. GASTROINTESTINAL: Abdomen soft, non-tender, nondistended. MUSCULOSKELETAL: No cyanosis, or edema. BACK: Nontender without obvious deformity. No CVA tenderness. Procedures EEG 10/17/2016 IMPRESSION: Diffuse slowing consistent with a mild to moderate diffuse encephalopathy but no focal abnormality was noted. No seizure activity was seen. A/P Problem List: (1) Parkinsons ICD Code: G20 - Parkinson's disease Status: Acute (2) HTN (hypertension) ICD Code: I10 - Essential (primary) hypertension Status: Acute (3) Transient ischemic attack ICD Code: G45.9 - Transient cerebral ischemic attack, unspecified Status: Acute (4) Chronic anticoagulation ICD Code: Z79.01 - residential (current) use of anticoagulants Status: Acute (5) Hypertension ICD Code: I10 - Essential (primary) hypertension Status: Acute (6) Hyperlipidemia ICD Code: E78.5 - Hyperlipidemia, unspecified Status: Acute (7) CAD (coronary artery disease) ICD Code: I25.10 - Atherosclerotic heart disease of [place] coronary artery without angina pectoris Status: Acute (8) Anxiety ICD Code: F41.9 - Anxiety disorder, unspecified Status: Acute Assessment and Plan Patient is an 86-year-old male with a history of multiple TIAs in the past on Eliquis presents to the emergency department with acute dysarthria and difficulty finding words. Patient underwent CT head, CTA of head and neck, MRI brain - none of these studies showed any acute findings. TIA was suspected. Patient was recommended to continue Apixaban 2.5mg BID. Prior to our planned discharge on 10/17/2016, patient again had another episode of dysarthria. Neurology recommended increasing dose of Apixaban and started Keppra. EEG showed no evidence of epileptic activity. - Probable TIA - Dysarthria without other focal neurological deficits - Possible seizure activity. - Neurology is following. Radiological studies so far unremarkable for any acute findings. - Neurology increased Apixaban 5mg which is consistent with the recommended dose. - Patient is above 80 but he is also above 60kg and creatinine is not above 1.5. Parkinson's disease - Continue Carbidopa-Levodopa 25-100 mg 1.5 Tablet PO QID. - Coronary artery disease - s/p stent placement. - Suspected or paroxysmal Afib - follows up with [employer] Dr. Arndt. - Continue Apixaban 5mg BID. - Continue Isosorbide Mononitrate, Pravastatin 40mg QHS. - NS @ 75cc/hour. - Hypertension - Systolic BP was in the 180s. We started Nifedipine SR. However, after one dose, BP dropped quite a bit. - Will hold off using Nifedipine for now. If BP is elevated, will consider low dose Amlodipine 2.5mg Qday. Full code. Apixaban. Probable discharge in the AM. Mich Walton DO Oct 18, 2016 07:54
[2016-10-18] MEDS ORDERED: NIFEdipine 60 MG SUSTAINED RELEASE TAB PO SCH (09:00)
[2016-10-18] MEDS: prednisoLONE ACETATE 1% OPHT SUSP 5 ML BTL EACH EYE SCH (09:15)
[2016-10-18] MEDS: ALPRAZolam 0.25 MG TAB PO SCH (09:17)
[2016-10-18] MEDS: APIXABAN 2.5 MG TABLET PO SCH (09:20)
[2016-10-18] MEDS: CARBIDOPA/LEVODOPA 25 MG/100 MG TAB PO SCH ×3 (09:22→19:03)
[2016-10-18] MEDS: CHOLECALCIFEROL (VIT D3) 1000 UNIT TAB PO SCH (09:23)
[2016-10-18] MEDS: DOCUSATE SODIUM 50 MG/SENNA 8.6 MG TAB PO SCH (09:25)
[2016-10-18] MEDS: ISOSORBIDE MONONITRATE 30 MG TAB PO SCH (09:27)
[2016-10-18] MEDS: PROPRANOLOL HCL 10 MG TAB PO SCH (09:32)
[2016-10-18] MEDS: SODIUM CHLORIDE 0.9% FLUSH 10 ML FLUSH IV FLUSH SCH ×2 (09:40→21:00)
[2016-10-18] MEDS: levETIRAcetam 1000 MG INJ 100 ML IV SCH ×2 (09:45→21:00)
--- NOTE | 2016-10-18 11:52 | RADRPT ---
EXAM DATE/TIME: 10/18/2016 07:30 [facility] COMPARISON: MRI BRAIN W & W/O CONTRAST, October 17, 2016, 14:55. INDICATIONS : Stroke alert. Decreased level of conciousness. MEDICAL HISTORY : Carcinoma, bladder. Parkinson's. SURGICAL HISTORY : Tonsillectomy. Bladder ca. Cornea transplant. ENCOUNTER: Subsequent ACUITY: 2 day PAIN SCORE: 0/10 LOCATION: cranial TECHNIQUE: Multiplanar, multisequence MRI of the brain was performed without contrast. FINDINGS: CEREBRUM: The ventricles are normal for age. No evidence of midline shift, mass lesion, hemorrhage or acute in farction. No extraaxial fluid collections are seen. The pituitary gland and suprasellar cistern are normal in configuration. WHITE MATTER: Scattered foci of bright T2 signal abnormalities are seen in the white matter, unchanged. There is al so some prominent vascular channels in the basal ganglia region.. POSTERIOR FOSSA: The cerebellum and brainstem are intact. The 4th ventricle is midline. The cerebellopontine angle is unremarkable. The cerebellar tonsils are normal in position. DIFFUSION IMAGING: No focal areas of restricted diffusion are seen. No evidence of acute infarction. EXTRACRANIAL: The visualized portions of the orbits and paranasal sinuses are unremarkable. CONCLUSION: 1. Chronic ischemic small vessel vasculopathy. 2. No acute infarction identified. Travon Butler MD on October 18, 2016 at 8:18 Board Certified Radiologist. This report was verified electronically.
--- NOTE | 2016-10-18 11:52 | RADRPT ---
EXAM DATE/TIME: 10/18/2016 07:30 [facility] COMPARISON: CTA BRAIN W 3D RECON, October 16, 2016, 15:55. INDICATIONS : Stroke alert. Decreased level of conciousness. MEDICAL HISTORY : Carcinoma, bladder. Parkinson's. SURGICAL HISTORY : Tonsillectomy. Bladder ca. Cornea transplant. ENCOUNTER: Subsequent ACUITY: 2 day PAIN SCORE: 0/10 LOCATION: cranial Please note a normal MRA of the brain does not entirely exclude the possibility of a small aneurysm, nor the possibility of distal intracranial vessel disease. TECHNIQUE: 3D time of flight MRA was performed. Source images, multiplanar STS MIP, and 3D volume MIP reconstru ctions were reviewed. FINDINGS: There is excellent visualization of the major intracranial arteries out to the second-order branch ve ssels. There is no evidence for aneurysm, vessel truncation or stenosis, and no evidence for vascula r malformation. Scattered intraluminal irregularities including the distal carotid arteries and dista l posterior cerebral arteries. Posterior communicating arteries are not seen. CONCLUSION: 1. No large vessel stenosis or thrombus. 2. Scattered atherosclerotic changes. Travon Butler MD on October 18, 2016 at 8:28 Board Certified Radiologist. This report was verified electronically.
[2016-10-18 11:58] LABS: BICARBONATE 25.8 MEQ/L (21.0-32.0); POTASSIUM 4.4 MEQ/L (3.5-5.1)
--- NOTE | 2016-10-18 15:25 | EKG ---
Date Performed: 10/17/2016 Time Performed: 18:39:36 PTAGE: 86 years EKG: Sinus rhythm RIGHT BUNDLE BRANCH BLOCK ABNORMAL ECG Since PREVIOUS TRACING , no significant change noted PREVIOUS TRACIN10/16/2016 16.50 DOCTOR: Ilan Aceves Interpretating Date/Time 10/18/2016 15:24:49
[2016-10-19] MEDS: CARBIDOPA/LEVODOPA 25 MG/100 MG TAB PO SCH ×3 (00:16→13:18)
[2016-10-19] MEDS: PRAVASTATIN SOD 40 MG TAB PO SCH (00:17)
[2016-10-19] MEDS: ALPRAZolam 0.25 MG TAB PO SCH ×2 (00:17→10:08)
[2016-10-19] MEDS: DOCUSATE SODIUM 50 MG/SENNA 8.6 MG TAB PO SCH ×2 (00:17→10:10)
[2016-10-19] MEDS: CHOLECALCIFEROL (VIT D3) 1000 UNIT TAB PO SCH ×2 (00:17→10:07)
[2016-10-19] MEDS: PROPRANOLOL HCL 10 MG TAB PO SCH ×2 (00:18→10:10)
[2016-10-19] MEDS: APIXABAN 2.5 MG TABLET PO SCH ×2 (00:18→10:10)
[2016-10-19 01:00] VITALS: BP 117/62; PULSE 72; RESP 18; TEMP 97.8; O2SAT 96
[2016-10-19 04:35] VITALS: BP 119/63; PULSE 74; RESP 18; TEMP 96.5; O2SAT 96
[2016-10-19 05:52] LABS: INTERNATIONAL NORMALIZED RATIO 1.1 RATIO; PROTHROMBIN TIME - PATIENT 11.7 SEC (9.8-11.6)
[2016-10-19] MEDS: SODIUM CHLOR 0.9% 1000 ML INJ 1,000 ML IV SCH (06:37)
[2016-10-19] MEDS: INSULIN ASPART SUPPLEMENTAL SCALE SQ SCH ×2 (06:46→11:00)
[2016-10-19 07:53] VITALS: BP 120/58; PULSE 73; RESP 18; TEMP 98.1; O2SAT 93
--- NOTE | 2016-10-19 08:31 | HHI.PR ---
Subjective Remarks ctsp cva alert called trouble talking again and was staring off mri brain today neg ctax2 neg yest now improving ct brain tonight ok I ? sz? plan inc eliquis to 5 bid add keppra ivf eeg now can repeat name 07/03 t/o smile sym still some trouble getting his thoughts out will fu 10/19/16 no more spells Objective Vital Signs Date Time Temp Pulse Resp B/P (MAP) Pulse Ox O2 Delivery O2 Flow Rate FiO2 10/19/16 07:53 98.1 73 18 120/58 (78) 93 10/19/16 04:35 96.5 74 18 119/63 (81) 96 10/19/16 01:00 97.8 72 18 117/62 (80) 96 10/18/16 20:30 97.8 74 16 108/57 (74) 93 10/18/16 20:18 100 10/18/16 16:30 98.5 76 16 102/55 (71) 96 10/18/16 13:49 107/54 (71) 10/18/16 11:00 98.5 78 17 94/53 (67) 93 I/O 10/18/16 10/18/16 10/18/16 10/19/16 10/19/16 10/19/16 06:59 14:59 22:59 06:59 14:59 22:59 Intake Total 750 ml 200 ml 200 ml Balance 750 ml 200 ml 200 ml Intake Oral 200 ml 200 ml IV Total 750 ml Result Diagram: 10/17/16 0620 10/18/16 1004 Objective Remarks awake alert no tremor walked ok this am voice fluent Assessment and Plan Assessment and Plan imp better on 1.5 qid sinemet and keppra [address] neal op needs bp check standing mri neg yest possibly these are cp sz ok dc noon if amb ok and bp stand ok on keppra fu dr leela Pitts,Santos Holliday MD Oct 19, 2016 08:31
[2016-10-19 08:33] VITALS: BP 104/55; PULSE 76; O2SAT 94
[2016-10-19] MEDS ORDERED: LEVE500 PO (08:59)
[2016-10-19] MEDS ORDERED: APIX5TAB PO (08:59)
[2016-10-19] MEDS ORDERED: CARB25TA9 PO (08:59)
[2016-10-19] MEDS ORDERED: levETIRAcetam 500 MG TAB PO SCH (09:00)
[2016-10-19] MEDS: prednisoLONE ACETATE 1% OPHT SUSP 5 ML BTL EACH EYE SCH (09:00)
[2016-10-19] MEDS: SODIUM CHLORIDE 0.9% FLUSH 10 ML FLUSH IV FLUSH SCH (09:00)
--- NOTE | 2016-10-19 09:02 | HHI.DS ---
Discharge Summary Admission Date Oct 16, 2016 at 18:14 Discharge Date: Oct 19, 2016 Admitting Diagnosis (1) Parkinsons ICD Code: G20 - Parkinson's disease Status: Acute (2) HTN (hypertension) ICD Code: I10 - Essential (primary) hypertension Status: Acute (3) Transient ischemic attack ICD Code: G45.9 - Transient cerebral ischemic attack, unspecified Diagnosis: Principal Status: Acute (4) Chronic anticoagulation ICD Code: Z79.01 - custodial (current) use of anticoagulants Status: Acute (5) Hypertension ICD Code: I10 - Essential (primary) hypertension Status: Acute (6) Hyperlipidemia ICD Code: E78.5 - Hyperlipidemia, unspecified Status: Acute (7) CAD (coronary artery disease) ICD Code: I25.10 - Atherosclerotic heart disease of [place] coronary artery without angina pectoris Status: Acute (8) Anxiety ICD Code: F41.9 - Anxiety disorder, unspecified Status: Acute (9) Seizure ICD Code: R56.9 - Unspecified convulsions Diagnosis: Principal Procedures EEG 10/17/2016 IMPRESSION: Diffuse slowing consistent with a mild to moderate diffuse encephalopathy but no focal abnormality was noted. No seizure activity was seen. Brief History - From Admission Patient is an 86-year-old male with a history of multiple TIAs in the past on Eliquis presents to the emergency department with acute dysarthria and difficulty finding words. Started approximately 14 45 however his states his been happening on and off all day today and he had complete resolution and then it restarted at approximately 14 45. The patient apparently is confused at baseline according to , he is very inattentive. Patient's stated that since he got better she waited until this afternoon when the symptoms recurred call Dr. Flores his neurologist and recommended over the phone to come to the emergency department. and patient state that he has stents from 1994. That are metal stents. Patient has been told that he IS not able to have an MRI CBC/BMP: 10/17/16 0620 10/18/16 1004 Significant Findings Laboratory Tests Test 10/16/16 15:48 10/16/16 15:50 10/16/16 23:04 10/17/16 06:20 Red Blood Count 4.34 MIL/MM3 (4.50-5.90) 4.27 MIL/MM3 (4.50-5.90) Platelet Count 145 TH/MM3 (150-450) 123 TH/MM3 (150-450) Monocytes (%) (Auto) 10.5 % (0.0-8.0) 10.3 % (0.0-8.0) Estimat Glomerular Filtration Rate 67 ML/MIN (>89) Bedside Glucose 101 MG/DL (60-95) Troponin I LESS THAN 0.02 NG/ML LESS THAN 0.02 NG/ML LESS THAN 0.02 NG/ML Urine Specific Lind 1.036 (1.002-1.035) Urine Occult Blood SMALL (NEG) Urine Benzodiazepines Screen POS (NEG) Total Creatine Kinase 36 U/L (39-308) 29 U/L (39-308) Hematocrit 38.6 % (39.0-51.0) Aspartate Amino Transf (AST/SGOT) 12 U/L (15-37) Alanine Aminotransferase (ALT/SGPT) 8 U/L (12-78) Total Protein 6.0 GM/DL (6.4-8.2) Cholesterol Level 106 MG/DL (120-200) Test 10/17/16 18:08 10/17/16 19:27 10/17/16 20:06 10/18/16 04:35 Bedside Hematocrit 36.0 % (38.0-51.0) Bedside Sodium 135 MMOL/L (138-146) Bedside Potassium 5.2 MMOL/L (3.5-4.9) Bedside Glucose 106 MG/DL (60-95) Arterial Blood Partial Pressure CO2 43 mmHg (38-42) Ammonia 36 MCMOL/L (11-32) Test 10/18/16 10:04 10/19/16 05:29 Estimat Glomerular Filtration Rate 84 ML/MIN (>89) Prothrombin Time 11.7 SEC (9.8-11.6) Imaging Last Impressions Head Magnetic Resonance Angiography 10/18/16599 Signed Impressions: Service Date/Time: Tuesday, October 18, 2016 07:30 - CONCLUSION: 1. No large vessel stenosis or thrombus. 2. Scattered atherosclerotic changes. Travon Butler MD Brain MRI 10/18/16599 Signed Impressions: Service Date/Time: Tuesday, October 18, 2016 07:30 - CONCLUSION: 1. Chronic ischemic small vessel vasculopathy. 2. No acute infarction identified. Travon Butler MD Head CT 10/17/16 06 Signed Impressions: Service Date/Time: Monday, October 17, 2016 18:04 - CONCLUSION: Slight atrophic and small vessel ischemic changes without any evidence for acute hemorrhage or mass effect. Renee Mendez MD Neck CTA 10/16/16 154 Signed Impressions: Service Date/Time: Sunday, October 16, 2016 15:55 - CONCLUSION: 1. Mild atherosclerotic plaquing involving the carotid bifurcations and distal vertebral arteries. No hemodynamically significant carotid artery stenosis is seen. Alessandro Howell MD Head CTA 10/16/161542 Signed Impressions: Service Date/Time: Sunday, October 16, 2016 15:55 - CONCLUSION: No filling defects to suggest thrombus or embolus. Hai Rutherford Jr., MD PE at Discharge GENERAL: Alert, NAD. SKIN: Warm and dry. HEAD: Normocephalic. EYES: No scleral icterus. No injection or drainage. NECK: Supple, trachea midline. No JVD or lymphadenopathy. CARDIOVASCULAR: Regular rate and rhythm without murmurs, gallops, or rubs. RESPIRATORY: Breath sounds equal bilaterally. No accessory muscle use. GASTROINTESTINAL: Abdomen soft, non-tender, nondistended. MUSCULOSKELETAL: No cyanosis, or edema. BACK: Nontender without obvious deformity. No CVA tenderness. Pt update on day of discharge Patient is doing well. Sitting in his chair. No fever, chills. He took a few steps, did not feel lightheaded or dizzy. Hospital Course Patient is an 86-year-old male with a history of multiple TIAs in the past on Eliquis presents to the emergency department with acute dysarthria and difficulty finding words. Patient underwent CT head, CTA of head and neck, MRI brain - none of these studies showed any acute findings. TIA was suspected. Patient was recommended to continue Apixaban 2.5mg BID. Prior to our planned discharge on 10/17/2016, patient again had another episode of dysarthria. Neurology recommended increasing dose of Apixaban and started Keppra. EEG showed no evidence of epileptic activity. - Probable TIA - Dysarthria without other focal neurological deficits - Possible seizure activity. - Neurology is following. Radiological studies so far unremarkable for any acute findings. - Neurology increased Apixaban 5mg which is consistent with the recommended dose. - Patient is above 80 but he is also above 60kg and creatinine is not above 1.5. - Neurology recommends Keppra 1000mg BID. Parkinson's disease - Continue Carbidopa-Levodopa 25-100 mg 1.5 Tablet PO QID. - Coronary artery disease - s/p stent placement. - Suspected or paroxysmal Afib - follows up with [employer] Dr. Arndt. - Continue Apixaban 5mg BID. - Continue Isosorbide Mononitrate, Pravastatin 40mg QHS. - NS @ 75cc/hour while in the hospital. - Hypertension - Systolic BP was in the 180s. We started Nifedipine SR. However, after one dose, BP dropped quite a bit. - Will hold off using Nifedipine for now. If BP is elevated, consider low dose Amlodipine 2.5mg Qday. - No BP meds were added upon discharge. Full code. Apixaban. Pt Condition on Discharge: Good Discharge Disposition: Discharge Home Discharge Time: > 30 minutes Discharge Instructions DIET: Follow Instructions for: Heart Healthy Diet Activities you can perform: Regular-No Restrictions Follow up Referrals: PCP Follow-up - 1 Week New Medications: Apixaban (Eliquis) 5 Mg Tab 5 MG PO BID for Blood Clot Prevention, #60 TAB 0 Refills Carbidopa-Levodopa (Carbidopa-Levodopa) 25-100 Mg Tab 1.5 TAB PO QID for Parkinson's for 30 Days, TAB Levetiracetam (Keppra) 500 Mg Tab 1000 MG PO Q12HR for Seizure Control, #60 TAB Continued Medications: Alprazolam (Alprazolam) 0.25 Mg Tab 0.25 MG PO BID for Anxiety, TAB 0 Refills Alprazolam (Alprazolam) 0.25 Mg Tab 0.25 MG PO DAILY PRN for ANXIETY, TAB 0 Refills Cholecalciferol (Vitamin D3) 1,000 Unit Tab 2000 UNITS PO BID for Nutritional Supplement, #1 BOTTLE 0 Refills Isosorbide Mononitrate ER (Isosorbide Mononitrate ER) 30 Mg Chapis 30 MG PO DAILY for Prevent Chest Pain, #30 TAB 0 Refills Prednisolone Acetate Opth 1% (Pred Forte Opth 1%) 1% Susp 1 DROP RIGHT EYE DAILY for Inflammation, #1 BOTTLE 0 Refills Propranolol (Propranolol) 10 Mg Tab 10 MG PO Q12HR, #60 TAB 0 Refills Simvastatin (Zocor) 40 Mg Tab 20 MG PO HS for Cholesterol Management, #30 TAB 0 Refills Mich Walton DO Oct 19, 2016 09:02
--- NOTE | 2016-10-19 09:19 | ECHRPT ---
Indication: CONCLUSIONS Normal left ventricular size. Wall thickness is normal. The left ventricular systolic function is normal with an estimated ejection fraction in the range of 55-60%. Mitral annular calcification is present. Aortic valve sclerosis is present. Trace aortic valve regurgitation. BP: / HR: Rhythm: Sinus MEASUREMENTS (Male / Female) Normal Values Technical Quality:Technically difficult study 2D ECHO LV Diastolic Diameter PLAX 3.9 cm 4.2 - 5.9 / 3.9 - 5.3 cm LV Systolic Diameter PLAX 2.9 cm IVS Diastolic Thickness 0.7 cm 0.6 - 1.0 / 0.6 - 0.9 cm LVPW Diastolic Thickness 0.7 cm 0.6 - 1.0 / 0.6 - 0.9 cm LV Relative Wall Thickness 0.4 LA Systolic Diameter LX 3.2 cm 3.0 - 4.0 / 2.7 - 3.8 cm DOPPLER AV Peak Velocity 190.5 cm/s AV Peak Gradient 14.5 mmHg AV Mean Gradient 7.0 mmHg AV Velocity Time Integral 43.9 cm AI Peak Velocity 276.0 cm/s AI Peak Gradient 30.5 mmHg AI Pressure Half Time 939.0 ms LVOT Peak Velocity 92.5 cm/s LVOT Peak Gradient 3.4 mmHg LVOT Velocity Time Integral 23.1 cm Mitral E Point Velocity 40.1 cm/s Mitral A Point Velocity 54.4 cm/s Mitral E to A Ratio 0.7 TR Peak Velocity 182.0 cm/s TR Peak Gradient 13.2 mmHg FINDINGS LEFT VENTRICLE Normal left ventricular size. Wall thickness is normal. The left ventricular systolic function is normal with an estimated ejection fraction in the range of 55-60%. RIGHT VENTRICLE Normal right ventricular size and systolic function. LEFT ATRIUM The left atrial size is normal. RIGHT ATRIUM The right atrial size is normal. ATRIAL SEPTUM Normal atrial septal thickness without atrial level shunting by limited color doppler interrogation. AORTA The aortic root and proximal ascending aorta are normal in size on limited imaging. MITRAL VALVE Mitral annular calcification is present. AORTIC VALVE Aortic valve sclerosis is present. Trace aortic valve regurgitation. TRICUSPID VALVE Structurally normal tricuspid valve. No tricuspid valve stenosis or regurgitation. PULMONARY VALVE The pulmonary valve is not well visualized. VESSELS The inferior vena cava is normal in size. PERICARDIUM No pericardial effusion. Willy Call MD (Electronically Signed) Final Date:19 October 2016 09:18
[2016-10-19] MEDS: ISOSORBIDE MONONITRATE 30 MG TAB PO SCH (10:07)
[2016-10-19 11:44] VITALS: BP 109/56; PULSE 65; RESP 19; TEMP 97.9; O2SAT 98
== END 2016-10-19 14:42 | disposition home or self-care (01) ==
LOC: NEPC 15:20 → NEDH 18:14 → INTOOBSV 18:14 → NEPHCDU 20:20 → NEDH 20:20 → NEPHCDU 20:20 → UNDODISIN 10-19 14:42
PROVIDERS: ADMIT Hospitalist; ATTEND Hospitalist
DX: R47.1 Dysarthria and anarthria (principal); G20 Parkinson's disease; G93.40 Encephalopathy, unspecified; I10 Essential (primary) hypertension; I25.10 Atherosclerotic heart disease of native coronary artery without angina pectoris; E78.5 Hyperlipidemia, unspecified; R94.31 Abnormal electrocardiogram [ECG] [EKG]; F41.9 Anxiety disorder, unspecified; R56.9 Unspecified convulsions; F03.90 Unspecified dementia, unspecified severity, without behavioral disturbance, psychotic disturbance, mood disturbance, and anxiety; I45.10 Unspecified right bundle-branch block; I25.2 Old myocardial infarction; Z95.5 Presence of coronary angioplasty implant and graft; Z85.51 Personal history of malignant neoplasm of bladder; Z92.21 Personal history of antineoplastic chemotherapy; Z79.01 Long term (current) use of anticoagulants; Z94.7 Corneal transplant status; Z79.899 Other long term (current) drug therapy; Z86.73 Personal history of transient ischemic attack (TIA), and cerebral infarction without residual deficits
CPT/HCPCS: 36600; 70450; 70496; 70498; 70544; 70551; 70553; 80048; 80061; 80076; 80307; 81001; 82140; 82435; 82550; 82565; 82607; 82805; 82947; 82948; 83036; 83735; 84100; 84132; 84295; 84425; 84439; 84443; 84484; 84520; 85025; 85384; 85610; 85652; 85730; 86850; 86900; 86901; 93005; 93306; 95819; 96125; 96361; 96365; 96366; 97162; 97166; 99285; A9579; G0378; G8987; G8988; G8989; J1953; J7030; Q9967

== ENCOUNTER 2017-06-11 10:07 | Observation (INO) | payer MEDICARE, BC ==
[2017-06-11] VITALS (7 sets, daily range): BP systolic 158–186; BP diastolic 77–95; PULSE 66–79; RESP 18–20; TEMP 97–97.8; O2SAT 92–100
[~2017-06-11 10:07] MED LIST changes: -ACET500T13 PO; -AGGR20025 PO; +APIX5TAB PO; +CARB25TA9 PO; +LEVE500 PO; -PRED1SUS EACH EYE; +PRED1SUS RIGHT EYE; -SINE25TA PO; +VITA100018 PO
[2017-06-11] MEDS ORDERED: IODIXANOL 320 MG/ML 10 ML VIAL (for Rad CT) IVCONTRAST ONE (10:08)
[2017-06-11] MEDS ORDERED: SODIUM CHLOR 0.9% 1000 ML INJ 1,000 ML IV ONE (10:11)
[2017-06-11 10:27] LABS: AUTOMATED NEUTROPHIL # 2.1 TH/MM3 (1.8-7.7); BASOPHIL % 0.4 % (0.0-2.0); EOSINOPHIL % 0.9 % (0.0-4.0); HEMATOCRIT 33.4 % (39.0-51.0); HEMOGLOBIN 11.7 GM/DL (13.0-17.0); LYMPH % 33.3 % (9.0-44.0); LYMPHOCYTE # 1.3 TH/MM3 (1.0-4.8); MEAN CORPUSCULAR HEMOGLOBIN 30.7 PG (27.0-34.0); MEAN CORPUSCULAR HGB CONC 34.9 % (32.0-36.0); MEAN PLATELET VOLUME 9.1 FL (7.0-11.0); MONO % 10.1 % (0.0-8.0); MONOCYTE # 0.4 TH/MM3 (0-0.9); NEUT % 55.3 % (16.0-70.0); PLATELET COUNT 115 TH/MM3 (150-450); RED CELL DISTRIBUTION WIDTH 14.3 % (11.6-17.2); WHITE BLOOD COUNT 3.8 TH/MM3 (4.0-11.0)
--- NOTE | 2017-06-11 10:31 | RADRPT ---
EXAM DATE/TIME: 06/11/2017 10:14 [facility] COMPARISON: CT BRAIN W/O CONTRAST, October 17, 2016, 18:04. INDICATIONS : Stroke alert; expressive aphagia, right side weakness. RADIATION DOSE: 56.35 CTDIvol (mGy) This report was called by Dr. Gonzalez to Dr. Hernandez at 10: 29 AM on 06/11/17. MEDICAL HISTORY : Parkinson's. Stroke Carcinoma, bladder.Cardiovascular disease. SURGICAL HISTORY : Corneal transplant. ENCOUNTER: Initial ACUITY: 1 day PAIN SCALE: Non-responsive LOCATION: cranial TECHNIQUE: Multiple contiguous axial images were obtained of the head. Using automated exposure control and adj ustment of the mA and/or kV according to patient size, radiation dose was kept as low as reasonably a chievable to obtain optimal diagnostic quality images. DICOM format image data is available electro nically for review and comparison. FINDINGS: CEREBRUM: Scattered old lacunar infarcts are noted within the bilateral basal ganglia. Mild cerebral atrophy is noted. Mild periventricular white matter small vessel ischemic changes are noted bilaterally. No erlin dence of midline shift, mass lesion, hemorrhage or acute infarction. No extra-axial fluid collection s are seen. POSTERIOR FOSSA: The cerebellum and brainstem are intact. The 4th ventricle is midline. The cerebellopontine angle i s unremarkable. EXTRACRANIAL: The visualized portion of the orbits is intact. SKULL: The calvaria is intact. No evidence of skull fracture. CONCLUSION: 1. 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 2. Mild cerebral atrophy. 3. Mild periventricular white matter small vessel ischemic changes. 4. No acute infarct, acute hemorrhage, midline shift or extra-axial fluid collections. Timur Gonzalez MD on June 11, 2017 at 10:25 Board Certified Radiologist. This report was verified electronically.
[2017-06-11 10:40] LABS: INTERNATIONAL NORMALIZED RATIO 1.2 RATIO; PROTHROMBIN TIME - PATIENT 11.7 SEC (9.8-11.6)
[2017-06-11 10:42] LABS: TROPONIN I LESS THAN 0.02 NG/ML (0.02-0.05)
--- NOTE | 2017-06-11 11:03 | RADRPT ---
EXAM DATE/TIME: 06/11/2017 10:23 [facility] COMPARISON: CTA BRAIN W 3D RECON, October 16, 2016, 15:55. INDICATIONS : Stroke alert; expressive aphagia, right side weakness. IV CONTRAST: 98 cc Visipaque (iodixanol) IV ; Cumulative dose for multiple exams. RADIATION DOSE: 10.95 CTDIvol (mGy) ; Combined studies MEDICAL HISTORY : Parkinson's. Stroke Carcinoma, bladder.Cardiovascular disease. SURGICAL HISTORY : Corneal transplant. ENCOUNTER: Initial ACUITY: 1 day PAIN SCALE: Non-responsive LOCATION: cranial TECHNIQUE: Volumetric scanning was performed using a multi-row detector CT scanner. The data was post processed with a variety of visualization algorithms including full volume maximum intensity projection, multi -planar sliding thin slab reformation, curved planar reformation, and surface rendering techniques. Using automated exposure control and adjustment of the mA and/or kV according to patient size, radiat ion dose was kept as low as reasonably achievable to obtain optimal diagnostic quality images. DICO M format image data is available electronically for review and comparison. FINDINGS: Moderate atherosclerotic vascular disease without aneurysm or vascular displacement. There is no munira or branch vessel occlusion. Vascular artery is patent. CONCLUSION: Negative for branch vessel occlusion Berto Howell MD FACR on June 11, 2017 at 10:59 Board Certified Radiologist. This report was verified electronically.
--- NOTE | 2017-06-11 11:08 | RADRPT ---
EXAM DATE/TIME: 06/11/2017 10:23 [facility] COMPARISON: CTA CAROTID ARTERIES W 3D RECON, October 16, 2016, 15:55. INDICATIONS : Stroke alert; expressive aphagia, right side weakness. IV CONTRAST: 98 cc Visipaque (iodixanol) IV ; Cumulative dose for multiple exams. RADIATION DOSE: 10.95 CTDIvol (mGy) ; Combined studies MEDICAL HISTORY : Pancreatitis. Stroke Carcinoma, bladder.Cardiovascular disease. SURGICAL HISTORY : Corneal transplant. ENCOUNTER: Initial ACUITY: 1 day PAIN SCALE: Non-responsive LOCATION: neck Elevated flow velocities and ICA/CCA ratios have been found to correlate with increased degrees of vessel stenosis, calculated as percentage of diameter relative to a normal segment of distal ICA/CCA. TECHNIQUE: Volumetric scanning was performed using a multirow detector CT scanner. The data was post processed with a variety of visualization algorithms including full-volume maximum intensity projection, multip lanar sliding thin-slab reformation, curved-planar reformation, and surface-rendering techniques. Us ing automated exposure control and adjustment of the mA and/or kV according to patient size, radiatio n dose was kept as low as reasonably achievable to obtain optimal diagnostic quality images. DICOM f ormat image data is available electronically for review and comparison. FINDINGS: AORTIC ARCH: Near bovine arch. Despite regional calcification, arch vessels are patent. RIGHT CAROTID: The common carotid artery is intact. Dense atherosclerotic calcification in the right carotid bulb ex tending into the internal with no significant stenosis. The external carotid artery is intact. LEFT CAROTID: The common carotid artery is intact. Dense calcification at the carotid bulb/bifurcation with no asso ciated significant stenosis. Tortuosity of the left common and internal carotid arteries. The dental hygiene instructor al carotid artery is intact. VERTEBRALS: The vertebral arteries have a symmetric diameter. No stenotic lesions are seen despite dense calcifi cation distally. CONCLUSION: 1. Atherosclerotic calcification in the arch vessels, bilateral carotid bulbs and distal vertebrals w ithout significant stenosis. 2. Near bovine configuration of the aortic arch. Again, the arch vessels are patent. 3. No significant change from prior. Mark Sanders MD on June 11, 2017 at 11:00 Board Certified Radiologist. This report was verified electronically.
--- NOTE | 2017-06-11 11:11 | RADRPT ---
EXAM DATE/TIME: 06/11/2017 10:49 [facility] COMPARISON: No previous studies available for comparison. INDICATIONS : Pt in for stroke alert. Pt unresponsive, nonverbal. MEDICAL HISTORY : None. SURGICAL HISTORY : None. ENCOUNTER: Initial ACUITY: 1 day PAIN SCORE: Non-responsive. LOCATION: Bilateral chest FINDINGS: A single view of the chest demonstrates the lungs to be symmetrically aerated with increased intersti tial markings bilaterally. No priors to determine chronicity. Findings could represent fibrosis or so me vascular congestion. There does appear to be some atelectasis or scarring in the left lingular reg ion. In addition, there is fullness in the upper mediastinal structures. While this may represent normal r egional vasculature, adenopathy cannot be completely excluded. Mild fullness of the right hilum again , may be related to the regional vasculature. CONCLUSION: 1. Atelectasis/scarring in the left lingular region. 2. No confluent infiltrate but there is some prominent interstitial markings which could represent va scular congestion or some degree of parenchymal scarring/fibrosis. 3. Fullness in the upper mediastinum. Again, nonspecific and could be secondary to the regional vascu lature. Adenopathy cannot be excluded, however. If further evaluation is necessary, CT of the chest w ith contrast would be recommended. Mark Sanders MD on June 11, 2017 at 11:05 Board Certified Radiologist. This report was verified electronically.
[2017-06-11] MEDS ORDERED: CYAN100025 SL (11:25)
[2017-06-11 11:38] LABS: BILIRUBIN, URINE NEG (NEG); BLOOD, URINE SMALL (NEG); GLUCOSE,URINE NEG (NEG); HYALINE CAST, URINE 2 /lpf (RARE); KETONE, URINE NEG (NEG); NITRITE,URINE NEG (NEG); URINE COLOR YELLOW (YELLW/STRAW); URINE LEUKOCYTE ESTERASE NEG (NEG)
--- NOTE | 2017-06-11 12:11 | PD ---
HPI Chief Complaint: Stroke Alert Time Seen by Provider: 10:11 Travel History International Travel<30 days: No Contact w/Intl Traveler<30days: No Traveled to known affect area: No History of Present Illness HPI Patient is a 87 year old male with history of Parkinson's Disease and strokes, BIBEMS as a stroke alert. Per EMS, patient developed symptoms 30 minutes prior to arrival at the hospital. Family states that he woke up at 8 AM and was normal he had been talking and acting appropriately and at 930 they noticed that he was unable to talk he had some right-sided weakness. He has had strokes in the past, so they were concerned and called 911. On arrival, patient is unable to speak and provide any history. PFSH Past Medical History Hx Anticoagulant Therapy: Yes (ELIQUIS) Heart Rhythm Problems: No Cancer: Yes (bladder) Cardiac Catheterization: Yes Cardiovascular Problems: Yes (STENTS X 2, [place]) High Cholesterol: Yes Chemotherapy: Yes Chest Pain: No Congestive Heart Failure: No Cerebrovascular Accident: Yes (TIA) Coronary Artery Disease: Yes Diminished Hearing: No Endocrine: No Genitourinary: Yes (Bladder [place]) Hypertension: Yes Immune Disorder: No Implanted Vascular Access Dvce: Yes Musculoskeletal: No Neurologic: Yes (ESSENTIAL TREMOR, parkisons, short term memory loss) Parkinson's Disease: Yes Psychiatric: No Reproductive: No Respiratory: No Radiation Therapy: No Past Surgical History Body Medical Devices: stents Cardiac Surgery: Yes ([place], stents) Coronary Stent: Yes Genitourinary Surgery: Yes (Bladder CA) Neurologic Surgery: Yes (CVA, PARKINSONS) Other Surgery: Yes Social History Alcohol Use: No Tobacco Use: No (quit when he has 23 years old) Substance Use: No Allergies-Medications (Allergen,Severity, Reaction): Coded Allergies: pseudoephedrine (Verified Adverse Reaction, Unknown, urinary retention, ) Reported Meds & Prescriptions Reported Meds & Active Scripts Active Carbidopa-Levodopa 25-100 Mg Tab 1 Tab PO QID 30 Days Eliquis (Apixaban) 5 Mg Tab 5 Mg PO BID Reported B-12 (Cyanocobalamin) 1,000 Mcg Subl 1,000 Mcg SL DAILY Pred Forte Opth 1% (Prednisolone Acetate Opth 1%) 1% Susp 1 Drop RIGHT EYE DAILY Vitamin D3 (Cholecalciferol) 1,000 Unit Tab 2,000 Units PO BID Zocor (Simvastatin) 40 Mg Tab 20 Mg PO HS Alprazolam 0.25 Mg Tab 0.25 Mg PO DAILY PRN Isosorbide Mononitrate ER (Isosorbide Mononitrate) 30 Mg Chapis 30 Mg PO DAILY Propranolol (Propranolol HCl) 10 Mg Tab 10 Mg PO Q12HR Review of Systems ROS Limitations: Clinical Condition Physical Exam Narrative GENERAL: Awake and alert, in no acute distress. SKIN: Focused skin assessment warm/dry. HEAD: Atraumatic. Normocephalic. EYES: Pupils equal and round. No scleral icterus. ENT: No nasal bleeding or discharge. Mucous membranes pink and moist. NECK: Trachea midline. No JVD. CARDIOVASCULAR: Regular rate and rhythm. No murmur appreciated. RESPIRATORY: No accessory muscle use. Clear to auscultation. Breath sounds equal bilaterally. GASTROINTESTINAL: Abdomen soft, non-tender, nondistended. MUSCULOSKELETAL: No obvious deformities. No clubbing. No cyanosis. No edema. NEUROLOGICAL: Awake and alert, however he is unable to speak. He is having difficulty following directions. He does move his left side. He is able to squeeze with his right hand, but does not move his right leg. The rest of the neuro exam is limited. Data Data Last Documented VS Vital Signs Date Time Temp Pulse Resp B/P (MAP) Pulse Ox O2 Delivery O2 Flow Rate FiO2 06/11/17 11:17 100 Nasal Cannula 2.00 06/11/17 11:00 66 18 166/86 (112) 06/11/17 10:10 97.8 Orders Orders Diet Npo (06/11/17 Lunch) Activity Bed Rest (06/11/17 ) Electrocardiogram (06/11/17 ) I-Stat Profile (06/11/17 10:11) Prothrombin Time / Inr (Pt) (06/11/17 10:11) Act Partial Throm Time (Ptt) (06/11/17 10:11) Complete Blood Count With Diff (06/11/17 10:11) Fibrinogen (06/11/17 10:11) Creatine Kinase (Cpk) (06/11/17 10:11) Troponin I (06/11/17 10:11) Ua Includes Microscopic (06/11/17 10:11) Drug Screen, Random Urine (06/11/17 10:11) Type And Screen (06/11/17 10:11) Ct Brain W/O Iv Contrast(Rout) (06/11/17 ) Chest, Single Ap (06/11/17 ) Cta Brain W Iv Contrast W 3d (06/11/17 10:11) Cta Neck W Iv Contrast W 3d (06/11/17 10:11) Blood Glucose (06/11/17 10:11) Ecg Monitoring (06/11/17 10:11) Neuro Checks Q2HX12,Q4H (06/11/17 10:11) Nursing Bedside Swallow Assess .ONCE (06/11/17 10:11) Iv Access Insert/Monitor (06/11/17 10:11) NPO (06/11/17 10:11) Oximetry (06/11/17 10:11) Resp Oxygen Nc Stroke (06/11/17 ) Sodium Chlor 0.9% 1000 Ml Inj (Ns 1000 M (06/11/17 10:11) Cath For Specimen (06/11/17 10:11) Iodixanol 320 Inj (Rad Ct) (Visipaque 32 (06/11/17 10:08) Admit Order (Ed Use Only) (06/11/17 ) Labs Laboratory Tests Test 06/11/17 10:08 06/11/17 11:12 White Blood Count 3.8 TH/MM3 Red Blood Count 3.80 MIL/MM3 Hemoglobin 11.7 GM/DL Bedside Hemoglobin 12.6 G/DL Hematocrit 33.4 % Bedside Hematocrit 37.0 % Mean Corpuscular Volume 88.0 FL Mean Corpuscular Hemoglobin 30.7 PG Mean Corpuscular Hemoglobin Concent 34.9 % Red Cell Distribution Width 14.3 % Platelet Count 115 TH/MM3 Mean Platelet Volume 9.1 FL Neutrophils (%) (Auto) 55.3 % Lymphocytes (%) (Auto) 33.3 % Monocytes (%) (Auto) 10.1 % Eosinophils (%) (Auto) 0.9 % Basophils (%) (Auto) 0.4 % Neutrophils # (Auto) 2.1 TH/MM3 Lymphocytes # (Auto) 1.3 TH/MM3 Monocytes # (Auto) 0.4 TH/MM3 Eosinophils # (Auto) 0.0 TH/MM3 Basophils # (Auto) 0.0 TH/MM3 CBC Comment DIFF FINAL Differential Comment Prothrombin Time 11.7 SEC Prothromb Time International Ratio 1.2 RATIO Activated Partial Thromboplast Time 26.9 SEC Fibrinogen 261 mg/dL Bedside Sodium 138 MMOL/L Bedside Potassium 4.4 MMOL/L Bedside Chloride 98 MMOL/L Bedside Blood Urea Nitrogen 10 MG/DL Bedside Creatinine 1.1 MG/DL Bedside Glucose 111 MG/DL Total Creatine Kinase 32 U/L Troponin I LESS THAN 0.02 NG/ML Urine Color YELLOW Urine Turbidity CLEAR Urine pH 8.0 Urine Specific [place] 1.025 Urine Protein TRACE mg/dL Urine Glucose (UA) NEG mg/dL Urine Ketones NEG mg/dL Urine Occult Blood SMALL Urine Nitrite NEG Urine Bilirubin NEG Urine Urobilinogen LESS THAN 2.0 MG/DL Urine Leukocyte Esterase NEG Urine RBC 12 /hpf Urine WBC LESS THAN 1 /hpf Urine Hyaline Casts 2 /lpf Urine Opiates Screen NEG Urine Barbiturates Screen NEG Urine Amphetamines Screen NEG Urine Benzodiazepines Screen NEG Urine Cocaine Screen NEG Urine Cannabinoids Screen NEG MDM Medical Decision Making Medical Screen Exam Complete: Yes Emergency Medical Condition: Yes Medical Record Reviewed: Yes Interpretation(s) ECG shows sinus rhythm at 70, no ST elevation or depression. Differential Diagnosis Stroke versus TIA versus electrolyte abnormality versus infection Narrative Course Patient is an 87-year-old male who comes in has a stroke alert. Patient is on Eliquis, therefore is not a candidate for TPA. He was taken to CT, no bleed seen. Labs sent show no acute abnormalities. Neurology consulted. Patient will be admitted for further management. Last 24 hours Impressions Neck CTA 06/11/17 1011 Signed Impressions: Service Date/Time: Sunday, June 11, 2017 10:23 - CONCLUSION: 1. Atherosclerotic calcification in the arch vessels, bilateral carotid bulbs and distal vertebrals without significant stenosis. 2. Near bovine configuration of the aortic arch. Again, the arch vessels are patent. 3. No significant change from prior. Mark Sanders MD Head CTA 06/11/17 1011 Signed Impressions: Service Date/Time: Sunday, June 11, 2017 10:23 - CONCLUSION: Negative for branch vessel occlusion Berto Howell MD FACR Head CT 06/11/17 0000 Signed Impressions: Service Date/Time: Sunday, June 11, 2017 10:14 - CONCLUSION: 1. 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 2. Mild cerebral atrophy. 3. Mild periventricular white matter small vessel ischemic changes. 4. No acute infarct, acute hemorrhage, midline shift or extra-axial fluid collections. Timur Gonzalez MD Chest X-Ray 06/11/17 0000 Signed Impressions: Service Date/Time: Sunday, June 11, 2017 10:49 - CONCLUSION: 1. Atelectasis/scarring in the left lingular region. 2. No confluent infiltrate but there is some prominent interstitial markings which could represent vascular congestion or some degree of parenchymal scarring/fibrosis. 3. Fullness in the upper mediastinum. Again, nonspecific and could be secondary to the regional vasculature. Adenopathy cannot be excluded, however. If further evaluation is necessary, CT of the chest with contrast would be recommended. Mark Sanders MD Diagnosis Primary Impression: Acute ischemic stroke Admitting Information Admitting Physician Requests: Admit Scripts Carbidopa-Levodopa (Carbidopa-Levodopa) 25-100 Mg Tab 1 TAB PO QID for Parkinson's for 30 Days, #120 TAB Prov: Tashia Oconnell MD R1 06/11/17 Rukhsana Hernandez MD Jun 11, 2017 12:11
--- NOTE | 2017-06-11 12:43 | HHI.HP ---
[facility] Service Family Medicine Primary Care Physician [facility] Admission Diagnosis CVA Diagnoses: International Travel<30 Days: No Contact w/Intl Traveler<30days: No Known Affected Area: No History of Present Illness Patient is an 87 year old male with a past medical history significant of Parkinson's Disease and TIAs, who presents via EMS for aphasia and inability to follow commands. Stroke Alert called upon arrival to ED. Patient is on Eliquis, which does not make him a TPA candidate. History is provided by the patient's and son. Patient got up at 7 a.m., took is medications at 8 a.m., ate breakfast and laid back down to sleep, which is his normal routine. He has been sleeping in a recliner over the last few days because of increased urinary frequency/urgency and an inability to get out of bed quickly enough (see more details below). Around 9:15/9:30, the patient's son noted that his father's head kept falling forward and drool was falling onto his shirt. Attempts were made to wake up the patient, who opened his eyes and tried to get out of the recliner but was unable to speak and follow commands. EMS was called and the patient was transported to the hospital. Since arrival to the hospital, the patient's symptoms have improved. He is verbal and able to follow commands. At baseline, patient's speech is slurred, likely due to his Parkinson's Disease. He also mixes up yes and no. He experiences tremors, more on the right then left. He is likely weaker on right than left. Patient is seen by Dr. Flores, neurology, every three months. Patient has been experiencing increased urinary frequency/urgency over the past few days; he goes to the bathroom multiple times per hour, sometimes he produces a lot of urine, sometimes he produces little to no urine. (Tashia Oconnell MD R1) Review of Systems Constitutional: DENIES: Fatigue, Fever, Chills, Change in appetite Eyes: DENIES: Blurred vision, Vision loss, Double Vision Ears, nose, mouth, throat: COMPLAINS OF: Running Nose (At baseline), DENIES: Nasal discharge, Throat pain, Ear Pain Respiratory: DENIES: Cough, Sputum production, Shortness of breath Cardiovascular: DENIES: Chest pain, Palpitations, Lower Extremity Edema Gastrointestinal: COMPLAINS OF: Constipation, DENIES: Abdominal pain, Black stools, Bloody stools, Diarrhea, Nausea, Vomiting Genitourinary: COMPLAINS OF: Urinary frequency, Urgency, Nocturia, DENIES: Urinary incontinence, Hematuria Musculoskeletal: COMPLAINS OF: Stiffness, Back pain, Neck pain, DENIES: Joint pain, Muscle aches Integumentary: DENIES: Nail changes, Rash Hematologic/lymphatic: DENIES: Bruising Neurologic: COMPLAINS OF: Abnormal gait, Tremor, DENIES: Headache Psychiatric: DENIES: Anxiety, Mood changes, Depression (Tashia Oconnell MD R1) Past Family Social History Past Medical History TIAs x3-4 since 2012 Parkinson's Disease Macular degeneration Cataracts CAD s/p CO with stent placement x2 Bladder cancer s/p chemotherapy - 10 years ago Hyperlipidemia HTN Past Surgical History Corneal implants Cataract surgery Cardiac stent placement x2 as above Reported Medications Carbidopa-Levodopa 25-100 Mg Tab 1 Tab PO QID 30 Days Eliquis (Apixaban) 5 Mg Tab 5 Mg PO BID B-12 (Cyanocobalamin) 1,000 Mcg Subl 1,000 Mcg SL DAILY Pred Forte Opth 1% (Prednisolone Acetate Opth 1%) 1% Susp 1 Drop RIGHT EYE DAILY Vitamin D3 (Cholecalciferol) 1,000 Unit Tab 2,000 Units PO BID Zocor (Simvastatin) 40 Mg Tab 20 Mg PO HS Alprazolam 0.25 Mg Tab 0.25 Mg PO DAILY PRN Isosorbide Mononitrate ER (Isosorbide Mononitrate) 30 Mg Chapis 30 Mg PO DAILY Propranolol (Propranolol HCl) 10 Mg Tab 10 Mg PO Q12HR (Tashia Oconnell MD R1) Allergies: Coded Allergies: pseudoephedrine (Verified Adverse Reaction, Unknown, urinary retention, ) Active Ordered Medications Current Medications Medications (Trade) Dose Ordered Sig/Redd Route Start Time Stop Time Status Last Admin (Xanax) 0.25 mg DAILY PRN PO 06/11/17 13:15 (Eliquis) 5 mg BID PO 06/11/17 21:00 (Vitamin D3) 2,000 units BID PO 06/11/17 21:00 (Imdur) 30 mg DAILY PO 06/12/17 09:00 (Pred Forte 1% Opth Susp) 1 drop DAILY RIGHT EYE 06/12/17 09:00 (Inderal) 10 mg Q12HR PO 06/11/17 21:00 (Vitamin B12) 1,000 mcg DAILY PO 06/12/17 09:00 (Pravachol) 40 mg HS PO 06/11/17 21:00 (Sinemet 25-100 Mg) 1 tab QID PO 06/11/17 18:00 (NS Flush) 2 ml BID IV FLUSH 06/11/17 21:00 (NS Flush) 2 ml UNSCH PRN IV FLUSH 06/11/17 14:15 Sodium Chloride 1,000 ml @ 70 mls/hr [id number] IV 06/11/17 15:00 (NovoLOG SUPPLEMENTAL SCALE) 1 ACHS SQ 06/11/17 17:00 (D50w (Vial) Inj) 50 ml UNSCH PRN IV PUSH 06/11/17 14:15 (Glucagon Inj) 1 mg UNSCH PRN OTHER 06/11/17 14:15 (Aspirin) 325 mg DAILY PO 06/11/17 15:00 Family History Sister - ovarian cancer Social History Lives with of 64 years. Alcohol Use: None. Tobacco Use: None; quit when he has 63 years old. Substance Use: None. (Tashia Oconnell MD R1) Physical Exam Vital Signs Vital Signs Date Time Temp Pulse Resp B/P (MAP) Pulse Ox O2 Delivery O2 Flow Rate FiO2 06/11/17 11:17 100 Nasal Cannula 2.00 06/11/17 11:17 100 Nasal Cannula 2.00 06/11/17 11:00 66 18 166/86 (112) 100 Nasal Cannula 2.00 06/11/17 10:30 67 18 164/91 (115) 100 Nasal Cannula 2.00 06/11/17 10:10 97.8 69 18 173/85 (114) 98 06/11/17 10:10 69 18 100 Nasal Cannula 2.00 Physical Exam GENERAL: This is a well-nourished, well-developed elderly patient, in no apparent distress. Laying flat. Resting. SKIN: Cool and dry. HEAD: Atraumatic. Normocephalic. No temporal or scalp tenderness. EYES: Pupils equal round and reactive. Extraocular motions intact. No scleral icterus. No injection or drainage. ENT: Nose without bleeding, purulent drainage or septal hematoma. Throat without erythema; limited exam. Airway patent. NECK: Trachea midline. No JVD or lymphadenopathy. Tenderness; limited examination due to patient's need to lay flat. CARDIOVASCULAR: Regular rate and rhythm without murmurs, gallops, or rubs. RESPIRATORY: Clear to auscultation anteriorly. No wheezes, rales, or rhonchi. GASTROINTESTINAL: Abdomen soft, non-tender, nondistended. No hepato-splenomegaly , or palpable masses. No guarding. MUSCULOSKELETAL: Extremities without clubbing, cyanosis, or edema. No joint tenderness, effusion, or edema noted. No calf tenderness. NEUROLOGICAL: Awake and alert. Oriented to person and place, not oriented to time. Cranial nerves II through XII intact. Motor and sensory grossly within normal limits. 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 Slow but clear speech. Laboratory Laboratory Tests Test 06/11/17 10:08 06/11/17 11:12 White Blood Count 3.8 Red Blood Count 3.80 Hemoglobin 11.7 Bedside Hemoglobin 12.6 Hematocrit 33.4 Bedside Hematocrit 37.0 Mean Corpuscular Volume 88.0 Mean Corpuscular Hemoglobin 30.7 Mean Corpuscular Hemoglobin Concent 34.9 Red Cell Distribution Width 14.3 Platelet Count 115 Mean Platelet Volume 9.1 Neutrophils (%) (Auto) 55.3 Lymphocytes (%) (Auto) 33.3 Monocytes (%) (Auto) 10.1 Eosinophils (%) (Auto) 0.9 Basophils (%) (Auto) 0.4 Neutrophils # (Auto) 2.1 Lymphocytes # (Auto) 1.3 Monocytes # (Auto) 0.4 Eosinophils # (Auto) 0.0 Basophils # (Auto) 0.0 CBC Comment DIFF FINAL Differential Comment Prothrombin Time 11.7 Prothromb Time International Ratio 1.2 Activated Partial Thromboplast Time 26.9 Fibrinogen 261 Bedside Sodium 138 Bedside Potassium 4.4 Bedside Chloride 98 Bedside Blood Urea Nitrogen 10 Bedside Creatinine 1.1 Bedside Glucose 111 Total Creatine Kinase 32 Troponin I LESS THAN 0.02 Urine Color YELLOW Urine Turbidity CLEAR Urine pH 8.0 Urine Specific [place] 1.025 Urine Protein TRACE Urine Glucose (UA) NEG Urine Ketones NEG Urine Occult Blood SMALL Urine Nitrite NEG Urine Bilirubin NEG Urine Urobilinogen LESS THAN 2.0 Urine Leukocyte Esterase NEG Urine RBC 12 Urine WBC LESS THAN 1 Urine Hyaline Casts 2 Urine Opiates Screen NEG Urine Barbiturates Screen NEG Urine Amphetamines Screen NEG Urine Benzodiazepines Screen NEG Urine Cocaine Screen NEG Urine Cannabinoids Screen NEG (Tashia Oconnell MD R1) Result Diagram: 06/11/17 1008 Imaging Last 72 hours Impressions Neck CTA 06/11/17 1011 Signed Impressions: Service Date/Time: Sunday, June 11, 2017 10:23 - CONCLUSION: 1. Atherosclerotic calcification in the arch vessels, bilateral carotid bulbs and distal vertebrals without significant stenosis. 2. Near bovine configuration of the aortic arch. Again, the arch vessels are patent. 3. No significant change from prior. Mark Sanders MD Head CTA 06/11/17 1011 Signed Impressions: Service Date/Time: Sunday, June 11, 2017 10:23 - CONCLUSION: Negative for branch vessel occlusion Berto Howell MD FACR Head CT 06/11/17 0000 Signed Impressions: Service Date/Time: Sunday, June 11, 2017 10:14 - CONCLUSION: 1. 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 2. Mild cerebral atrophy. 3. Mild periventricular white matter small vessel ischemic changes. 4. No acute infarct, acute hemorrhage, midline shift or extra-axial fluid collections. Timur Gonzalez MD Chest X-Ray 06/11/17 0000 Signed Impressions: Service Date/Time: Sunday, June 11, 2017 10:49 - CONCLUSION: 1. Atelectasis/scarring in the left lingular region. 2. No confluent infiltrate but there is some prominent interstitial markings which could represent vascular congestion or some degree of parenchymal scarring/fibrosis. 3. Fullness in the upper mediastinum. Again, nonspecific and could be secondary to the regional vasculature. Adenopathy cannot be excluded, however. If further evaluation is necessary, CT of the chest with contrast would be recommended. Mark Sanders MD (Tashia Oconnell MD R1) Caprini VTE Risk Assessment Caprini VTE Risk Assessment: Mod/High Risk (score >= 2) Caprini Risk Assessment Model Point Value = 1 Point Value = 2 Point Value = 3 Point Value = 5 Age 41-60 Minor surgery BMI > 25 kg/m2 Swollen legs Varicose veins or History of unexplained or recurrent spontaneous Oral contraceptives or hormone replacement Sepsis (< 1 month) Serious lung disease, including pneumonia (< 1 month) Abnormal pulmonary function Acute myocardial infarction Congestive heart failure (< 1 month) History of inflammatory bowel disease Medical patient at bed rest Age 61-74 Arthroscopic surgery Major open surgery (> 45 min) Laparoscopic surgery (> 45 min) Malignancy Confined to bed (> 72 hours) Immobilizing plaster cast Central venous access Age >= 75 History of VTE Family history of VTE Factor V Leiden Prothrombin [id number] Lupus anticoagulant Anticardiolipin antibodies Elevated serum homocysteine Heparin-induced thrombocytopenia Other congenital or acquired thrombophilia Stroke (< 1 month) Elective arthroplasty Hip, pelvis, or leg fracture Acute spinal cord injury (< 1 month) Prophylaxis Regimen Total Risk Factor Score Risk Level Prophylaxis Regimen 0-1 Low Early ambulation 2 Moderate Order ONE of the following: *Sequential Compression Device (SCD) *Heparin 5000 units SQ BID 3-4 Higher Order ONE of the following medications: *Heparin 5000 units SQ TID *Enoxaparin/Lovenox 40 mg SQ daily (WT < 150 kg, CrCl > 30 mL/min) *Enoxaparin/Lovenox 30 mg SQ daily (WT < 150 kg, CrCl > 10-29 mL/min) *Enoxaparin/Lovenox 30 mg SQ BID (WT < 150 kg, CrCl > 30 mL/min) AND/OR *Sequential Compression Device (SCD) 5 or more Highest Order ONE of the following medications: *Heparin 5000 units SQ TID (Preferred with Epidurals) *Enoxaparin/Lovenox 40 mg SQ daily (WT < 150 kg, CrCl > 30 mL/min) *Enoxaparin/Lovenox 30 mg SQ daily (WT < 150 kg, CrCl > 10-29 mL/min) *Enoxaparin/Lovenox 30 mg SQ BID (WT < 150 kg, CrCl > 30 mL/min) AND *Sequential Compression Device (SCD) (Tashia Oconnell MD R1) Assessment and Plan Assessment and Plan Patient is an 87 year old male with a past medical history significant of Parkinson's Disease and TIAs, who presents via EMS for aphasia and inability to follow commands. Stroke Alert called upon arrival to ED. Patient is on Eliquis, which does not make him a TPA candidate. Symptoms resolved. Admitted for observation. Code Status Full code. Discussed Condition With Drs. Butler and Luis. (Tashia Oconnell MD R1) Attending Attestation Patient seen, examined, and discussed with resident team. I agree with assessment and management as documented and discussed with me. Patient's family at bedside, including , son, and daughter. Family reports that since arrival to ER, his symptoms have improved and his speech is clearer than baseline. Johnny Campbell is an 87 yo gentleman admitted for change in neurologic status, as he was drooling, not following commands, and had worsening slurred speech. These symptoms have resolved since arrival to ER. TIA: Appreciate neurology; EEG pending, but brain imaging reassuring. Additional diagnosis: Pyuria: Urine culture pending. UTI may be cause of altered status earlier today. (Sharyn Butler MD) Problem List: (1) Transient ischemic attack ICD Codes: G45.9 - Transient cerebral ischemic attack, unspecified Status: Acute Plan: Patient presents following episode of aphasia and inability to follow commands. Symptoms resolved at time of admission encounter. Patient is on Eliquis, which does not make him a TPA candidate. Head CT: 1. 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 2. Mild cerebral atrophy. 3. Mild periventricular white matter small vessel ischemic changes. 4. No acute infarct, acute hemorrhage, midline shift or extra-axial fluid collections. Head CTA: Moderate atherosclerotic vascular disease without aneurysm or vascular displacement. There is no major branch vessel occlusion. Vascular artery is patent. Brain MRI: 1. No acute infarction, mass effect or shift. 2. Chronic small vessel ischemic changes similar to September 2016. Neck CTA: 1. Atherosclerotic calcification in the arch vessels, bilateral carotid bulbs and distal vertebrals without significant stenosis. 2. Near bovine configuration of the aortic arch. Again, the arch vessels are patent. 3. No significant change from prior. Orders: * HOB flat for 12 hours. * May elevate HOB 30 degrees for all meals to prevent aspiration. * After 12 hours, OOB ad nat. * NPO pending swallow eval. * Aspirin 325mg daily PO. (2) HTN (hypertension) ICD Codes: I10 - Essential (primary) hypertension Status: Chronic Plan: Patient with history of hypertension. On admission 173/85. Allow for permissive hypertension during first 24hrs. * Continue home meds. (3) Hyperlipidemia ICD Codes: E78.5 - Hyperlipidemia, unspecified Status: Chronic Plan: Patient with history of hyperlipidemia. * Continue home meds. (4) CAD (coronary artery disease) ICD Codes: I25.10 - Atherosclerotic heart disease of hughes coronary artery without angina pectoris Status: Chronic Plan: Patient with history of CAD, CO s/p stent placement x2. * Continue home meds. (5) Parkinson disease ICD Codes: G20 - Parkinson's disease Status: Chronic Plan: Patient with history of Parkinson disease. * Continue home meds. (6) Fluid, Electrolyte, Nutrition, and Prophylaxis Status: Acute Plan: Fluid: * NS at 70ml/hr. Electrolyte: * Monitor and replete as necessary. Nutrition: * Diet NPO pending swallow eval. Prophylaxis: * SCDs. * Patient on Eliquis. (Tashia Oconnell MD R1) Tashia Oconnell MD R1 Jun 11, 2017 12:43 Sharyn Butler MD Jun 12, 2017 07:22
[2017-06-11] MEDS ORDERED: SODIUM CHLORIDE 0.9% FLUSH 10 ML FLUSH IV FLUSH PRN ×2 (12:45→14:15)
[2017-06-11] MEDS ORDERED: CARB25TA9 PO (13:13)
--- NOTE | 2017-06-11 13:14 | PD.CONS ---
History of Present Illness Service Neurology Consult Requested By Medicine Reason for Consult Unresponsiveness, possible stroke Primary Care Physician [facility] History of Present Illness History of Present Illness 87 year old male with a past medical history significant of Parkinson's Disease and multiple strokes/TIAs admitted to the hospital for acute right-sided weakness and aphasia. Stroke Alert called upon arrival to ED. Patient was not a tpa candidate because he is on Eliquis. Discussing with family at the bedside today, he was nodding his head early this morning and subsequently slumped over. states that he was poorly responsive but could not discern any overt seizure activity. The patient was weak particularly on the right side and his speech has been slow to resolve, though this is improving during his stay in the emergency department. His speech has been a problem secondary to Parkinson's, however this is worse today. The patient was on a trial of Keppra last year for questionable seizure activity, however his family states that this was discontinued several months ago. Past Family Social History Past Medical History Bladder cancer CAD s/p CT with stent placement x2 Hyperlipidemia CVAs HTN Parkinson's Disease Past Surgical History stent placement x2 Bladder surgery Allergies: Coded Allergies: pseudoephedrine (Verified Adverse Reaction, Unknown, urinary retention, ) Social History Alcohol Use: No Tobacco Use: No (quit when he has 23 years old) Substance Use: No (Umesh Vargas) Review of Systems All other ROS: ROS reviewed as documented in chart (Umesh Vargas) Past Family Social History Allergies: Coded Allergies: pseudoephedrine (Verified Adverse Reaction, Unknown, urinary retention, ) Active Ordered Medications Current Medications Medications (Trade) Dose Ordered Sig/Redd Route Start Time Stop Time Status Last Admin Sodium Chloride 1,000 ml @ 70 mls/hr [id number] ONCE IV 06/11/17 10:11 06/12/17 00:28 06/11/17 11:16 (NS Flush) 2 ml UNSCH PRN IV FLUSH 06/11/17 12:45 (NS Flush) 2 ml BID IV FLUSH 06/11/17 21:00 (Umesh Vargas) Exam I&O / VS Vital Signs Date Time Temp Pulse Resp B/P (MAP) Pulse Ox O2 Delivery O2 Flow Rate FiO2 06/11/17 11:17 100 Nasal Cannula 2.00 06/11/17 11:17 100 Nasal Cannula 2.00 06/11/17 11:00 66 18 166/86 (112) 100 Nasal Cannula 2.00 06/11/17 10:30 67 18 164/91 (115) 100 Nasal Cannula 2.00 06/11/17 10:10 97.8 69 18 173/85 (114) 98 06/11/17 10:10 69 18 100 Nasal Cannula 2.00 General: No acute distress Eye: PERRL, EOMI Respiratory: Non-labored respirations, Symmetrical expansion Cardiology: Normal rate Neurologic: Alert Psychiatric: Cooperative Exam Comments Patient is hypophonic but can give short appropriate 1 or 2 word answers, no gross facial weakness, tongue protrudes midline, uvula midline on phonation, EOMI, vff, moves all 4 extremities to gravity, resting tremor noted in both hands, 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, MSR symmetrical, no drift, plantar flexor, sensory intact to touch throughout (Umesh Vargas) Review/Management Diagnosis/Plan: (1) Transient ischemic attack ICD Codes: G45.9 - Transient cerebral ischemic attack, unspecified Status: Acute Plan: Symptoms appear to be resolving, r/o acute stroke no tpa given due to eliquis previously on keppra but was discontinued months ago CT brain and CTA head and neck with no acute process, MRI brain pending Check EEG Fall 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 d/w PA. agree with above (Sven Jauregui MD) Umesh Vargas Jun 11, 2017 13:14 Sven Jauregui MD Jun 12, 2017 10:36
[2017-06-11] MEDS ORDERED: DEXTROSE 50% IN WATER 50 ML VIAL(D50) IV PUSH PRN (14:15)
[2017-06-11] MEDS ORDERED: GLUCAGON 1 MG/ML VIAL OTHER PRN (14:15)
[2017-06-11] MEDS: SODIUM CHLOR 0.9% 1000 ML INJ 1,000 ML IV SCH ×2 (15:00→23:13)
[2017-06-11] MEDS: ASPIRIN 325 MG TAB PO SCH (15:00)
[2017-06-11] MEDS: INSULIN ASPART SUPPLEMENTAL SCALE SQ SCH ×2 (17:00→21:00)
[2017-06-11] MEDS: CARBIDOPA/LEVODOPA 25 MG/100 MG TAB PO SCH ×2 (18:00→21:33)
--- NOTE | 2017-06-11 19:06 | RADRPT ---
EXAM DATE/TIME: 06/11/2017 18:22 [facility] COMPARISON: No previous studies available for comparison. INDICATIONS : TIA. MEDICAL HISTORY : Parkinson's. Hypertension. Carcinoma, bladder. AR SURGICAL HISTORY : Coronary artery stent. Right arm sx, Corneal transplant. ENCOUNTER: Initial ACUITY: 1 day PAIN SCORE: 4/10 LOCATION: Bilateral cranial TECHNIQUE: Multiplanar, multisequence MRI of the brain was performed without contrast. FINDINGS: CEREBRUM: The ventricles are normal for age. No evidence of midline shift, mass lesion, hemorrhage or acute in farction. No extraaxial fluid collections are seen. The pituitary gland and suprasellar cistern are normal in configuration. WHITE MATTER: Mild signal abnormalities are seen in the white matter. POSTERIOR FOSSA: The cerebellum and brainstem are intact. The 4th ventricle is midline. The cerebellopontine angle is unremarkable. The cerebellar tonsils are normal in position. DIFFUSION IMAGING: No focal areas of restricted diffusion are seen. No evidence of acute infarction. EXTRACRANIAL: The visualized portions of the orbits and paranasal sinuses are unremarkable. CONCLUSION: 1. No acute infarction, mass effect or shift. 2. Chronic small vessel ischemic changes similar to September 2016. Terry Davis MD on June 11, 2017 at 19:01 Board Certified Radiologist. This report was verified electronically.
[2017-06-11] MEDS: SODIUM CHLORIDE 0.9% FLUSH 10 ML FLUSH IV FLUSH SCH (21:00)
[2017-06-11] MEDS ORDERED: SODIUM CHLORIDE 0.9% FLUSH 10 ML FLUSH IV FLUSH SCH (21:00)
[2017-06-11] MEDS: CHOLECALCIFEROL (VIT D3) 1000 UNIT TAB PO SCH (21:32)
[2017-06-11] MEDS: PRAVASTATIN SOD 40 MG TAB PO SCH (21:33)
[2017-06-11] MEDS: APIXABAN 5 MG TABLET PO SCH (21:33)
[2017-06-11] MEDS: PROPRANOLOL HCL 10 MG TAB PO SCH (21:33)
[2017-06-11] MEDS: ALPRAZolam 0.25 MG TAB PO PRN (23:17)
[2017-06-11 23:55] LABS: BILIRUBIN, URINE NEG (NEG); BLOOD, URINE MOD (NEG); GLUCOSE,URINE NEG (NEG); HYALINE CAST, URINE 2 /lpf (RARE); KETONE, URINE 80 mg/dL (NEG); MUCUS URINE FEW /lpf (OCC); NITRITE,URINE NEG (NEG); PH, URINE 6.5 (5.0-8.5); URINE COLOR YELLOW (YELLW/STRAW); URINE LEUKOCYTE ESTERASE MOD (NEG)
[2017-06-12] VITALS (10 sets, daily range): BP systolic 95–184; BP diastolic 53–91; PULSE 69–75; RESP 18; TEMP 97.3–98; O2SAT 94–97
[2017-06-12 07:34] LABS: AUTOMATED NEUTROPHIL # 4.5 TH/MM3 (1.8-7.7); BASOPHIL % 0.5 % (0.0-2.0); EOSINOPHIL % 0.6 % (0.0-4.0); HEMATOCRIT 40.8 % (39.0-51.0); HEMOGLOBIN 14.3 GM/DL (13.0-17.0); LYMPHOCYTE # 1.3 TH/MM3 (1.0-4.8); MEAN CELL VOLUME 87.6 FL (80.0-100.0); MEAN CORPUSCULAR HEMOGLOBIN 30.6 PG (27.0-34.0); MEAN CORPUSCULAR HGB CONC 34.9 % (32.0-36.0); MEAN PLATELET VOLUME 8.8 FL (7.0-11.0); MONOCYTE # 0.7 TH/MM3 (0-0.9); NEUT % 67.9 % (16.0-70.0); PLATELET COUNT 117 TH/MM3 (150-450); RED BLOOD COUNT 4.66 MIL/MM3 (4.50-5.90); WHITE BLOOD COUNT 6.6 TH/MM3 (4.0-11.0)
[2017-06-12 07:44] LABS: ALBUMIN 3.6 GM/DL (3.4-5.0); AST (GOT) 13 U/L (15-37); BICARBONATE 25.4 MEQ/L (21.0-32.0); BLOOD UREA NITROGEN 9 MG/DL (7-18); CALCIUM 9.1 MG/DL (8.5-10.1); CHLORIDE 106 MEQ/L (98-107); CREATININE 0.84 MG/DL (0.60-1.30); GLOMERULAR FILTRATION RATE 86 ML/MIN (>89); GLUCOSE,RANDOM 80 MG/DL (74-106); SODIUM (NA) 140 MEQ/L (136-145)
[2017-06-12 07:45] LABS: ALT (GPT) 8 U/L (12-78); CHOLESTEROL 92 MG/DL (120-200); TRIGLYCERIDES 76 MG/DL (42-150)
[2017-06-12 07:47] LABS: ALKALINE PHOSPHATASE 59 U/L (45-117); CHOLESTEROL/ HDL RATIO 2.12 RATIO; HDL CHOLESTEROL 43.2 MG/DL (40.0-60.0); LDL CHOLESTEROL 34 MG/DL (0-99); TOTAL BILIRUBIN ADULT 1.4 MG/DL (0.2-1.0); TOTAL PROTEIN 6.8 GM/DL (6.4-8.2)
[2017-06-12] MEDS: INSULIN ASPART SUPPLEMENTAL SCALE SQ SCH ×4 (08:00→21:00)
[2017-06-12] MEDS: ISOSORBIDE MONONITRATE 30 MG CR TAB (IMDUR) PO SCH (08:30)
[2017-06-12] MEDS: CYANOCOBALAMIN 1,000 MCG TAB PO SCH (08:31)
[2017-06-12] MEDS: APIXABAN 5 MG TABLET PO SCH ×2 (08:31→21:11)
[2017-06-12] MEDS: PROPRANOLOL HCL 10 MG TAB PO SCH ×2 (08:31→21:19)
[2017-06-12] MEDS: ASPIRIN 325 MG TAB PO SCH (08:32)
[2017-06-12] MEDS: CARBIDOPA/LEVODOPA 25 MG/100 MG TAB PO SCH ×4 (08:32→21:11)
[2017-06-12] MEDS: SODIUM CHLOR 0.9% 1000 ML INJ 1,000 ML IV SCH (08:38)
[2017-06-12] MEDS: SODIUM CHLORIDE 0.9% FLUSH 10 ML FLUSH IV FLUSH SCH ×2 (08:38→21:11)
[2017-06-12] MEDS: CHOLECALCIFEROL (VIT D3) 1000 UNIT TAB PO SCH ×2 (08:38→21:11)
[2017-06-12] MEDS: prednisoLONE ACETATE 1% OPHT SUSP 5 ML BTL RIGHT EYE SCH (09:28)
[2017-06-12] MEDS: NITROFURANTOIN MONOHYD MACROCR 100 MG CAP PO SCH ×2 (10:17→18:17)
[2017-06-12] MEDS: LISINOPRIL 10 MG TAB PO SCH (10:17)
--- NOTE | 2017-06-12 10:35 | HHI.PR ---
Review/Management Diagnosis/Plan: (1) Transient ischemic attack ICD Codes: G45.9 - Transient cerebral ischemic attack, unspecified Status: Acute Plan: etiology: recurrent spells. ? htn related vs sz vs pd-related vs tia on oac mri brain no acute lesion. cta brain/carotid no large vessel occlusion found to have uti recs f/u eeg home bp log- check sitting/standing bp's add aspirin 81mg when feasible d/w medical team and pt's family f/u with Dr. Flores in the office (2) Parkinsons ICD Codes: G20 - Parkinson's disease Status: Chronic Plan: Continue sinemet PT (3) Hypertension ICD Codes: I10 - Essential (primary) hypertension Status: Chronic (4) Hyperlipidemia ICD Codes: E78.5 - Hyperlipidemia, unspecified Status: Chronic Subjective Subjective Comments No acute events reported No headache No chest pain No dyspnea Active Medications Current Medications Medications (Trade) Dose Ordered Sig/Redd Route Start Time Stop Time Status Last Admin (Xanax) 0.25 mg DAILY PRN PO 06/11/17 13:15 06/11/17 23:17 (Eliquis) 5 mg BID PO 06/11/17 21:00 06/12/17 08:31 (Vitamin D3) 2,000 units BID PO 06/11/17 21:00 06/12/17 08:38 (Imdur) 30 mg DAILY PO 06/12/17 09:00 06/12/17 08:30 (Pred Forte 1% Opth Susp) 1 drop DAILY RIGHT EYE 06/12/17 09:00 06/12/17 09:28 (Inderal) 10 mg Q12HR PO 06/11/17 21:00 06/12/17 08:31 (Vitamin B12) 1,000 mcg DAILY PO 06/12/17 09:00 06/12/17 08:31 (Pravachol) 40 mg HS PO 06/11/17 21:00 06/11/17 21:33 (Sinemet 25-100 Mg) 1 tab QID PO 06/11/17 18:00 06/12/17 08:32 (NS Flush) 2 ml BID IV FLUSH 06/11/17 21:00 06/12/17 08:38 (NS Flush) 2 ml UNSCH PRN IV FLUSH 06/11/17 14:15 Sodium Chloride 1,000 ml @ 70 mls/hr [id number] IV 06/11/17 15:00 06/12/17 08:38 (NovoLOG SUPPLEMENTAL SCALE) 1 ACHS SQ 06/11/17 17:00 (D50w (Vial) Inj) 50 ml UNSCH PRN IV PUSH 06/11/17 14:15 (Glucagon Inj) 1 mg UNSCH PRN OTHER 06/11/17 14:15 (Macrobid) 100 mg BIDPC PO 06/12/17 09:45 06/12/17 10:17 (Prinivil) 10 mg DAILY PO 06/12/17 09:45 06/12/17 10:17 Allergies Allergies Coded Allergies pseudoephedrine (Verified Adverse Reaction, Unknown, urinary retention, ) Review of Systems All other ROS: ROS reviewed as documented in chart Exam I&O / VS Vital Signs Date Time Temp Pulse Resp B/P (MAP) Pulse Ox O2 Delivery O2 Flow Rate FiO2 06/12/17 09:41 75 06/12/17 08:22 98.0 73 18 184/87 (119) 95 06/12/17 04:00 97.7 74 18 155/77 (103) 94 06/12/17 00:00 98.0 73 18 165/83 (110) 95 06/11/17 20:00 97.8 79 18 186/95 (125) 92 06/11/17 15:47 97.0 68 20 185/88 (120) 95 06/11/17 14:58 06/11/17 13:47 70 18 158/77 (104) 99 Nasal Cannula 2.00 06/11/17 11:17 100 Nasal Cannula 2.00 06/11/17 11:17 100 Nasal Cannula 2.00 06/11/17 11:00 66 18 166/86 (112) 100 Nasal Cannula 2.00 General: No acute distress Eye: PERRL, EOMI Respiratory: Non-labored respirations, Symmetrical expansion Cardiology: Normal rate Neurologic: Alert Psychiatric: Cooperative Exam Comments dysarthric speech, facial hypomimia, follows, eating breakfast, ue rigidity, rt ue tremor, corona to gravity Objective Micro and Labs Laboratory Tests Test 06/11/17 11:12 06/11/17 16:02 06/11/17 21:36 06/11/17 23:15 Urine Color YELLOW YELLOW Urine Turbidity CLEAR CLEAR Urine pH 8.0 6.5 Urine Specific Burden 1.025 1.029 Urine Protein TRACE 30 Urine Glucose (UA) NEG NEG Urine Ketones NEG 80 Urine Occult Blood SMALL MOD Urine Nitrite NEG NEG Urine Bilirubin NEG NEG Urine Urobilinogen LESS THAN 2.0 2.0 Urine Leukocyte Esterase NEG MOD Urine RBC 12 24 Urine WBC LESS THAN 1 20 Urine Hyaline Casts 2 2 Urine Opiates Screen NEG Urine Barbiturates Screen NEG Urine Amphetamines Screen NEG Urine Benzodiazepines Screen NEG Urine Cocaine Screen NEG Urine Cannabinoids Screen NEG Troponin I LESS THAN 0.02 LESS THAN 0.02 Urine Mucus FEW Microscopic Urinalysis Comment CATH-CULTURE IND Test 06/12/17 06:14 White Blood Count 6.6 Red Blood Count 4.66 Hemoglobin 14.3 Hematocrit 40.8 Mean Corpuscular Volume 87.6 Mean Corpuscular Hemoglobin 30.6 Mean Corpuscular Hemoglobin Concent 34.9 Red Cell Distribution Width 14.0 Platelet Count 117 Mean Platelet Volume 8.8 Neutrophils (%) (Auto) 67.9 Lymphocytes (%) (Auto) 20.0 Monocytes (%) (Auto) 11.0 Eosinophils (%) (Auto) 0.6 Basophils (%) (Auto) 0.5 Neutrophils # (Auto) 4.5 Lymphocytes # (Auto) 1.3 Monocytes # (Auto) 0.7 Eosinophils # (Auto) 0.0 Basophils # (Auto) 0.0 CBC Comment DIFF FINAL Differential Comment Blood Urea Nitrogen 9 Creatinine 0.84 Random Glucose 80 Total Protein 6.8 Albumin 3.6 Calcium Level 9.1 Alkaline Phosphatase 59 Aspartate Amino Transf (AST/SGOT) 13 Alanine Aminotransferase (ALT/SGPT) 8 Total Bilirubin 1.4 Sodium Level 140 Potassium Level 4.0 Chloride Level 106 Carbon Dioxide Level 25.4 Anion Gap 9 Estimat Glomerular Filtration Rate 86 Triglycerides Level 76 Cholesterol Level 92 LDL Cholesterol 34 HDL Cholesterol 43.2 Cholesterol/HDL Ratio 2.12 Date/Time Source Procedure Growth Status 06/11/17 23:15 Urine Catheterized Urine Urine Culture Pending Received Sven Jauregui MD Jun 12, 2017 10:35
--- NOTE | 2017-06-12 11:12 | EKG ---
Date Performed: 06/11/2017 Time Performed: 10:39:49 PTAGE: 87 years EKG: Normal Sinus rhythm Right bundle branch block Compared to previous tracing ABNORMAL RHYTHM ECG PREVIOUS TRACING : 10/17/2016 18.39 DOCTOR: Carson Lawrence Interpretating Date/Time 06/12/2017 11:10:47
--- NOTE | 2017-06-12 13:06 | ECHRPT ---
Indication: EF assessment in CHF CONCLUSIONS Normal left ventricular size. Mild concentric left ventricular hypertrophy. The left ventricular systolic function is grossly normal on limited imaging. BP: 155 / 77 HR: 94 Rhythm: Sinus MEASUREMENTS (Male / Female) Normal Values Technical Quality:Fair 2D ECHO LV Diastolic Diameter PLAX 3.9 cm 4.2 - 5.9 / 3.9 - 5.3 cm LV Systolic Diameter PLAX 2.4 cm IVS Diastolic Thickness 1.1 cm 0.6 - 1.0 / 0.6 - 0.9 cm LVPW Diastolic Thickness 1.1 cm 0.6 - 1.0 / 0.6 - 0.9 cm LV Relative Wall Thickness 0.6 RV Internal Dim ED PLAX 2.3 cm DOPPLER AV Peak Velocity 145.0 cm/s AV Peak Gradient 8.4 mmHg AV Mean Gradient 5.0 mmHg AV Velocity Time Integral 26.1 cm LVOT Peak Velocity 63.2 cm/s LVOT Peak Gradient 1.6 mmHg LVOT Velocity Time Integral 11.8 cm Mitral E Point Velocity 51.8 cm/s Mitral A Point Velocity 69.6 cm/s Mitral E to A Ratio 0.7 LV E' Lateral Velocity 3.3 cm/s Mitral E to LV E' Lateral Ratio 15.5 LV E' Septal Velocity 4.3 cm/s Mitral E to LV E' Septal Ratio 12.2 FINDINGS LEFT VENTRICLE Normal left ventricular size. Mild concentric left ventricular hypertrophy. The left ventricular systolic function is grossly normal on limited imaging. RIGHT VENTRICLE Normal right ventricular size and systolic function. Sybil Adams MD, FACC (Electronically Signed) Final Date:12 June 2017 13:04
--- NOTE | 2017-06-12 13:10 | HHI.FPPN ---
Subjective Remarks Patient was seen and evaluated this morning. He reports feeling well. He denies chest pain, shortness of breath, nausea, vomiting, diarrhea and constipation. He requests dc of Milian catheter. All questions were answered. (Tashia Oconnell MD R1) Objective Vitals Vital Signs Date Time Temp Pulse Resp B/P (MAP) Pulse Ox O2 Delivery O2 Flow Rate FiO2 06/12/17 12:00 97.3 73 18 95/53 (67) 95 06/12/17 09:41 75 06/12/17 08:22 98.0 73 18 184/87 (119) 95 06/12/17 04:00 97.7 74 18 155/77 (103) 94 06/12/17 00:00 98.0 73 18 165/83 (110) 95 06/11/17 20:00 97.8 79 18 186/95 (125) 92 06/11/17 15:47 97.0 68 20 185/88 (120) 95 06/11/17 14:58 06/11/17 13:47 70 18 158/77 (104) 99 Nasal Cannula 2.00 I/O 06/11/17 06/11/17 06/11/17 06/12/17 06/12/17 06/12/17 07:00 15:00 23:00 07:00 15:00 23:00 Output Total 1200 ml 400 ml Balance -1200 ml -400 ml Output Urine Total 1200 ml 400 ml # Bowel Movements 0 0 (Tashia Oconnell MD R1) Result Diagram: 06/12/17 0614 06/12/17 0614 Imaging Last 72 hours Impressions Neck CTA 06/11/17 1011 Signed Impressions: Service Date/Time: Sunday, June 11, 2017 10:23 - CONCLUSION: 1. Atherosclerotic calcification in the arch vessels, bilateral carotid bulbs and distal vertebrals without significant stenosis. 2. Near bovine configuration of the aortic arch. Again, the arch vessels are patent. 3. No significant change from prior. Mark Sanders MD Head CTA 06/11/17 1011 Signed Impressions: Service Date/Time: Sunday, June 11, 2017 10:23 - CONCLUSION: Negative for branch vessel occlusion Berto Howell MD FACR Head CT 06/11/17 0000 Signed Impressions: Service Date/Time: Sunday, June 11, 2017 10:14 - CONCLUSION: 1. 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 2. Mild cerebral atrophy. 3. Mild periventricular white matter small vessel ischemic changes. 4. No acute infarct, acute hemorrhage, midline shift or extra-axial fluid collections. Timur Gonzalez MD Chest X-Ray 06/11/17 0000 Signed Impressions: Service Date/Time: Sunday, June 11, 2017 10:49 - CONCLUSION: 1. Atelectasis/scarring in the left lingular region. 2. No confluent infiltrate but there is some prominent interstitial markings which could represent vascular congestion or some degree of parenchymal scarring/fibrosis. 3. Fullness in the upper mediastinum. Again, nonspecific and could be secondary to the regional vasculature. Adenopathy cannot be excluded, however. If further evaluation is necessary, CT of the chest with contrast would be recommended. Mark Sanders MD Brain MRI 06/11/17 0000 Signed Impressions: Service Date/Time: Sunday, June 11, 2017 18:22 - CONCLUSION: 1. No acute infarction, mass effect or shift. 2. Chronic small vessel ischemic changes similar to September 2016. Terry Davis MD Objective Remarks GENERAL: This is a well-nourished, well-developed elderly patient, in no apparent distress. He is sitting up in hospital bed. SKIN: Cool and dry. HEAD: Atraumatic. Normocephalic. EYES: Pupils equal round. Extraocular motions intact. No scleral icterus. No injection or drainage. ENT: Nose without bleeding, purulent drainage or septal hematoma. Airway patent. NECK: Trachea midline. CARDIOVASCULAR: Regular rate and rhythm without murmurs, gallops, or rubs. RESPIRATORY: Clear to auscultation anteriorly. No wheezes, rales, or rhonchi. GASTROINTESTINAL: Hyperactive, high-pitched bowel sounds. Abdomen soft, non- tender. Minimally distended. No hepato-splenomegaly, or palpable masses. No guarding. MUSCULOSKELETAL: Extremities without clubbing, cyanosis, or edema. No joint tenderness, effusion, or edema noted. No calf tenderness. NEUROLOGICAL: Awake and alert. Cranial nerves II through XII intact. Motor and sensory grossly within normal limits. 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 Slow but clear speech. Medications and IVs Current Medications Medications (Trade) Dose Ordered Sig/Redd Route Start Time Stop Time Status Last Admin (Xanax) 0.25 mg DAILY PRN PO 06/11/17 13:15 06/11/17 23:17 (Eliquis) 5 mg BID PO 06/11/17 21:00 06/12/17 08:31 (Vitamin D3) 2,000 units BID PO 06/11/17 21:00 06/12/17 08:38 (Imdur) 30 mg DAILY PO 06/12/17 09:00 06/12/17 08:30 (Pred Forte 1% Opth Susp) 1 drop DAILY RIGHT EYE 06/12/17 09:00 06/12/17 09:28 (Inderal) 10 mg Q12HR PO 06/11/17 21:00 06/12/17 08:31 (Vitamin B12) 1,000 mcg DAILY PO 06/12/17 09:00 06/12/17 08:31 (Pravachol) 40 mg HS PO 06/11/17 21:00 06/11/17 21:33 (Sinemet 25-100 Mg) 1 tab QID PO 06/11/17 18:00 06/12/17 08:32 (NS Flush) 2 ml BID IV FLUSH 06/11/17 21:00 06/12/17 08:38 (NS Flush) 2 ml UNSCH PRN IV FLUSH 06/11/17 14:15 Sodium Chloride 1,000 ml @ 70 mls/hr [id number] IV 06/11/17 15:00 06/12/17 08:38 (NovoLOG SUPPLEMENTAL SCALE) 1 ACHS SQ 06/11/17 17:00 (D50w (Vial) Inj) 50 ml UNSCH PRN IV PUSH 06/11/17 14:15 (Glucagon Inj) 1 mg UNSCH PRN OTHER 06/11/17 14:15 (Macrobid) 100 mg BIDPC PO 06/12/17 09:45 06/12/17 10:17 (Prinivil) 10 mg DAILY PO 06/12/17 09:45 06/12/17 10:17 (Tashia Oconnell MD R1) Urinary Catheter: Yes Assessment to: Remove (Tashia Oconnell MD R1) Vascular Central Line Catheter: No (Tashia Oconnell MD R1) A/P Assessment and Plan Patient is an 87 year old male with a past medical history significant of Parkinson's Disease and TIAs, who presents via EMS for aphasia and inability to follow commands. Stroke Alert called upon arrival to ED. Patient is on Eliquis, which does not make him a TPA candidate. Symptoms resolved. Admitted for observation. Discharge Planning Likely today. Awaiting PT recommendations. (Tashia Oconnell MD R1) Attending Attestation Patient seen, examined, and discussed with resident team. I agree with assessment and management as documented and discussed with me. Pt without complaints. Family at bedside. He is back to baseline. Anticipate discharge today or tomorrow, pending evaluation by PT and echo. (Sharyn Butler MD) Problem List: (1) Transient ischemic attack ICD Codes: G45.9 - Transient cerebral ischemic attack, unspecified Status: Acute Plan: Patient presents following episode of aphasia and inability to follow commands. Symptoms resolved at time of admission encounter. Patient is on Eliquis, which does not make him a TPA candidate. Head CT: 1. 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 2. Mild cerebral atrophy. 3. Mild periventricular white matter small vessel ischemic changes. 4. No acute infarct, acute hemorrhage, midline shift or extra-axial fluid collections. Head CTA: Moderate atherosclerotic vascular disease without aneurysm or vascular displacement. There is no major branch vessel occlusion. Vascular artery is patent. Brain MRI: 1. No acute infarction, mass effect or shift. 2. Chronic small vessel ischemic changes similar to September 2016. Neck CTA: 1. Atherosclerotic calcification in the arch vessels, bilateral carotid bulbs and distal vertebrals without significant stenosis. 2. Near bovine configuration of the aortic arch. Again, the arch vessels are patent. 3. No significant change from prior. ECHO: 1. Normal left ventricular size. 2. Mild concentric left ventricular hypertrophy. 3. The left ventricular systolic function is grossly normal on limited imaging. Discharge: * Add Aspirin 81mg PO daily to be started once hematuria clears. (2) HTN (hypertension) ICD Codes: I10 - Essential (primary) hypertension Status: Chronic Plan: Patient with history of hypertension. On admission 173/85. Blood pressure continues to be elevated. * Continue home meds. * Add lisinopril 10mg daily. (3) Hyperlipidemia ICD Codes: E78.5 - Hyperlipidemia, unspecified Status: Chronic Plan: Patient with history of hyperlipidemia. * Continue home meds. (4) CAD (coronary artery disease) ICD Codes: I25.10 - Atherosclerotic heart disease of [place] coronary artery without angina pectoris Status: Chronic Plan: Patient with history of CAD, NV s/p stent placement x2. * Continue home meds. (5) Parkinson disease ICD Codes: G20 - Parkinson's disease Status: Chronic Plan: Patient with history of Parkinson disease. * Continue home meds. (6) UTI (urinary tract infection) ICD Codes: N39.0 - Urinary tract infection, site not specified Status: Acute Plan: UA 06/12: Yellow, clear, pH 6.5, moderate occult blood, moderate leukocyte esterase, 24 RBC, 20 WBC and few mucus. Urine culture pending. Medication: * Macrobid 100mg PO BID. (7) Fluid, Electrolyte, Nutrition, and Prophylaxis Status: Acute Plan: Fluid: * NS at 70ml/hr. Electrolyte: * Monitor and replete as necessary. Nutrition: * Diet Heart Healthy. Prophylaxis: * SCDs. * Patient on Eliquis. (Tashia Oconnell MD R1) Tashia Oconnell MD R1 Jun 12, 2017 13:10 Sharyn Butler MD Jun 12, 2017 20:41
[2017-06-12] MEDS ORDERED: ASPI-516 CHEW (13:17)
[2017-06-12] MEDS ORDERED: LISI10TA3 PO (13:17)
[2017-06-12] MEDS ORDERED: NITR100C4 PO (13:17)
--- NOTE | 2017-06-12 13:18 | HHI.DCPOC ---
Discharge Care Plan Diagnosis: (1) Transient ischemic attack (2) CAD (coronary artery disease) (3) Hyperlipidemia (4) Parkinson disease (5) Hypertension (6) UTI (urinary tract infection) Goals to Promote Your Health * To prevent worsening of your condition and complications * To maintain your health at the optimal level Directions to Meet Your Goals Take your medications as prescribed Follow your dietary instruction Follow activity as directed Keep your appointments as scheduled Take your immunizations and boosters as scheduled If your symptoms worsen call your PCP, if no PCP go to Urgent Care Center or Emergency Room Smoking is Dangerous to Your Health. Avoid second hand smoke Call the 24-hour hour crisis hotline for domestic abuse at Tashia Oconnell MD R1 Jun 12, 2017 13:18
--- NOTE | 2017-06-12 16:48 | EKG ---
Date Performed: 06/11/2017 Time Performed: 17:49:19 PTAGE: 87 years EKG: NORMAL Sinus rhythm RIGHT BUNDLE BRANCH BLOCK Baseline artifact ABNORMAL ECG Since PREVIOUS TRACING , no significant change noted PREVIOUS TRACIN06/11/2017 10.39 DOCTOR: Sybil Adams Interpretating Date/Time 06/12/2017 16:47:08
--- NOTE | 2017-06-12 16:49 | EKG ---
Date Performed: 06/12/2017 Time Performed: 03:02:38 PTAGE: 87 years EKG: Sinus rhythm . Right bundle branch block Baseline artifact Abnormal ECG Since PREVIOUS TRACING , no significant change noted PREVIOUS TRACIN06/11/2017 20.29 DOCTOR: Sybil Adams Interpretating Date/Time 06/12/2017 16:47:51
--- NOTE | 2017-06-12 16:49 | EKG ---
Date Performed: 06/11/2017 Time Performed: 20:29:23 PTAGE: 87 years EKG: NORMAL Sinus rhythm RIGHT BUNDLE BRANCH BLOCK Baseline artifact ABNORMAL ECG Since PREVIOUS TRACING , no significant change noted PREVIOUS TRACIN06/11/2017 17.49 DOCTOR: Sybli Adams Interpretating Date/Time 06/12/2017 16:54:29
--- NOTE | 2017-06-12 19:50 | HHI.FF ---
Face to Face Verification Diagnosis: (1) Transient ischemic attack Physical Therapy Order: Evaluate and Treat Home Health Nursing Order: Medical education I have seen patient Johnny Campbell on 06/12/17. My clinical findings support the need for the requested home health care services because: Ltd mobility - disease progression I certify that my clinical findings support that this patient is homebound because: Unsteady gait/balance Diana Covarrubias MD R1 Jun 12, 2017 19:50
[2017-06-12] MEDS: PRAVASTATIN SOD 40 MG TAB PO SCH (21:11)
[2017-06-12] MEDS: ALPRAZolam 0.25 MG TAB PO PRN (21:19)
[2017-06-13 00:30] VITALS: PULSE 59
[2017-06-13 01:08] VITALS: BP 146/71; PULSE 67; RESP 18; TEMP 97.9; O2SAT 95
[2017-06-13 05:10] VITALS: BP 148/69; PULSE 70; RESP 18; TEMP 98.1; O2SAT 97
[2017-06-13] MEDS: INSULIN ASPART SUPPLEMENTAL SCALE SQ SCH (07:54)
[2017-06-13 08:18] VITALS: BP 183/81; PULSE 64; RESP 18; TEMP 98.1; O2SAT 94
[2017-06-13] MEDS: SODIUM CHLORIDE 0.9% FLUSH 10 ML FLUSH IV FLUSH SCH (08:31)
[2017-06-13] MEDS: ISOSORBIDE MONONITRATE 30 MG CR TAB (IMDUR) PO SCH (08:34)
[2017-06-13] MEDS: PROPRANOLOL HCL 10 MG TAB PO SCH (08:35)
[2017-06-13] MEDS: APIXABAN 5 MG TABLET PO SCH (08:35)
[2017-06-13] MEDS: CYANOCOBALAMIN 1,000 MCG TAB PO SCH (08:35)
[2017-06-13] MEDS: LISINOPRIL 10 MG TAB PO SCH (08:36)
[2017-06-13] MEDS: CHOLECALCIFEROL (VIT D3) 1000 UNIT TAB PO SCH (08:36)
[2017-06-13] MEDS: CARBIDOPA/LEVODOPA 25 MG/100 MG TAB PO SCH (08:36)
[2017-06-13] MEDS: NITROFURANTOIN MONOHYD MACROCR 100 MG CAP PO SCH (08:37)
--- NOTE | 2017-06-13 08:38 | MG ---
cc: Sven Jauregui MD EEG RECORD #[id number] A 6-8 Hz posterior rhythm, 20-40 microvolts, good anterior to posterior gradient. Good EEG variability and reactivity. No lateralizing features. Single lead EKG shows sinus rhythm and attenuation slowing background during the drowsy state. Some driving noted with photic stimulation. Single lead EKG showed sinus rhythm. INTERPRETATION: Normal awake, drowsy EEG for a patient of this age group. Clinical correlation. Sven Jauregui MD MG/TL , 08:23 AM , 08:37 AM
[2017-06-13] MEDS: prednisoLONE ACETATE 1% OPHT SUSP 5 ML BTL RIGHT EYE SCH (08:39)
[2017-06-13] MEDS: SODIUM CHLOR 0.9% 1000 ML INJ 1,000 ML IV SCH (08:40)
[2017-06-13 09:23] VITALS: PULSE 67
--- NOTE | 2017-06-13 09:59 | HHI.FPPN ---
Subjective Remarks Patient seen and examined bedside this morning. Patient did not leave yesterday because the family was not ready to take him home. Family is present states they are ready to take him home. No acute events overnight. No chest pain/shortness of breath/dizziness. No change in mental status. (Maren Smith MD R2) Objective Vitals Vital Signs Date Time Temp Pulse Resp B/P (MAP) Pulse Ox O2 Delivery O2 Flow Rate FiO2 06/13/17 09:23 67 06/13/17 08:18 98.1 64 18 183/81 (115) 94 06/13/17 05:10 98.1 70 18 148/69 (95) 97 06/13/17 01:08 97.9 67 18 146/71 (96) 95 06/13/17 00:30 59 06/12/17 21:10 97.6 69 18 150/91 (110) 96 06/12/17 20:30 70 06/12/17 16:12 97.5 71 18 169/82 (111) 97 06/12/17 16:00 72 06/12/17 13:00 74 06/12/17 12:00 97.3 73 18 95/53 (67) 95 I/O 06/12/17 06/12/17 06/12/17 06/13/17 06/13/17 06/13/17 07:00 15:00 23:00 07:00 15:00 23:00 Intake Total 480 ml Output Total 400 ml Balance -400 ml 480 ml Intake Oral 480 ml Output Urine Total 400 ml # Voids 3 7 # Bowel Movements 0 (Maren Smith MD R2) Result Diagram: 06/12/1761306/12/17 0614 Objective Remarks GENERAL: This is a well-nourished, well-developed elderly patient, in no apparent distress. He is sitting up in hospital bed. SKIN: Cool and dry. HEAD: Atraumatic. Normocephalic. EYES: Pupils equal round. Extraocular motions intact. No scleral icterus. No injection or drainage. ENT: Nose without bleeding, purulent drainage or septal hematoma. Airway patent. NECK: Trachea midline. CARDIOVASCULAR: Regular rate and rhythm without murmurs, gallops, or rubs. RESPIRATORY: Clear to auscultation anteriorly. No wheezes, rales, or rhonchi. GASTROINTESTINAL: Hyperactive, high-pitched bowel sounds. Abdomen soft, non- tender. Minimally distended. No hepato-splenomegaly, or palpable masses. No guarding. MUSCULOSKELETAL: Extremities without clubbing, cyanosis, or edema. No joint tenderness, effusion, or edema noted. No calf tenderness. NEUROLOGICAL: Awake and alert. Cranial nerves II through XII intact. Motor and sensory grossly within normal limits. 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 Slow but clear speech. (Maren Smith MD R2) A/P Assessment and Plan Patient is an 87 year old male with a past medical history significant of Parkinson's Disease and TIAs, who presents via EMS for aphasia and inability to follow commands. Stroke Alert called upon arrival to ED. Patient is on Eliquis, which does not make him a TPA candidate. Symptoms resolved. Admitted for observation. Discharge Planning today (Maren mSith MD R2) Attending Attestation Patient seen and examined, discussed with resident team. I agree with assessment and management as documented and discussed with me. Pt without complaints. Family feels he is back to baseline. Blood pressure is improve, with initiation of lisinopril. Discussed risks, side effects, and benefits of this medication. Discussed to get labs in 1 week. Discharge home today. (Sharyn Butler MD) Problem List: (1) Transient ischemic attack ICD Codes: G45.9 - Transient cerebral ischemic attack, unspecified Status: Acute Plan: Patient presents following episode of aphasia and inability to follow commands. Symptoms resolved at time of admission encounter. Patient is on Eliquis, which does not make him a TPA candidate. Head CT: 1. 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 2. Mild cerebral atrophy. 3. Mild periventricular white matter small vessel ischemic changes. 4. No acute infarct, acute hemorrhage, midline shift or extra-axial fluid collections. Head CTA: Moderate atherosclerotic vascular disease without aneurysm or vascular displacement. There is no major branch vessel occlusion. Vascular artery is patent. Brain MRI: 1. No acute infarction, mass effect or shift. 2. Chronic small vessel ischemic changes similar to September 2016. Neck CTA: 1. Atherosclerotic calcification in the arch vessels, bilateral carotid bulbs and distal vertebrals without significant stenosis. 2. Near bovine configuration of the aortic arch. Again, the arch vessels are patent. 3. No significant change from prior. ECHO: 1. Normal left ventricular size. 2. Mild concentric left ventricular hypertrophy. 3. The left ventricular systolic function is grossly normal on limited imaging. Discharge: * Add Aspirin 81mg PO daily to be started once hematuria clears. (2) HTN (hypertension) ICD Codes: I10 - Essential (primary) hypertension Status: Chronic Plan: Patient with history of hypertension. On admission 173/85. Blood pressure continues to be elevated. * Continue home meds. * Add lisinopril 10mg daily. * Family and patient encouraged to follow-up with PCP and bring blood pressure log, family instructed on how to collect orthostatic blood pressures. Family agrees to follow-up blood pressures and see PCP this week. (3) Hyperlipidemia ICD Codes: E78.5 - Hyperlipidemia, unspecified Status: Chronic Plan: Patient with history of hyperlipidemia. * Continue home meds. (4) CAD (coronary artery disease) ICD Codes: I25.10 - Atherosclerotic heart disease of [place] coronary artery without angina pectoris Status: Chronic Plan: Patient with history of CAD, [place] s/p stent placement x2. * Continue home meds. (5) Parkinson disease ICD Codes: G20 - Parkinson's disease Status: Chronic Plan: Patient with history of Parkinson disease. * Continue home meds. (6) UTI (urinary tract infection) ICD Codes: N39.0 - Urinary tract infection, site not specified Status: Acute Plan: UA 06/12: Yellow, clear, pH 6.5, moderate occult blood, moderate leukocyte esterase, 24 RBC, 20 WBC and few mucus. Urine culture: no growth in 48hours Medication: * NO ABX NEEDED (7) Fluid, Electrolyte, Nutrition, and Prophylaxis Status: Acute Plan: Fluid: * NS at 70ml/hr. Electrolyte: * Monitor and replete as necessary. Nutrition: * Diet Heart Healthy. Prophylaxis: * SCDs. * Patient on Eliquis. (Maren Smith MD R2) Maren Smith MD R2 Jun 13, 2017 09:59 Sharyn Butler MD Jun 15, 2017 06:38
[2017-06-13 10:30] VITALS: O2SAT 95
[2017-06-13 13:52] LABS: HEMOGLOBIN A1C 5.2 % (4.3-6.0)
== END 2017-06-13 11:26 | disposition home or self-care (01) ==
LOC: NEPE 10:07 → NEDA 12:17 → UNDOADMOB 12:17 → INTOOBSV 12:17 → NEDA 12:17 → N05B 14:47 → UNDODISOB 06-13 11:26
PROVIDERS: ADMIT Family Medicine; ATTEND Family Medicine
DX: I63.9 Cerebral infarction, unspecified (principal); I25.10 Atherosclerotic heart disease of native coronary artery without angina pectoris; N39.0 Urinary tract infection, site not specified; I10 Essential (primary) hypertension; G20 Parkinson's disease; E78.5 Hyperlipidemia, unspecified; I25.2 Old myocardial infarction; R41.3 Other amnesia; R94.31 Abnormal electrocardiogram [ECG] [EKG]; Z79.01 Long term (current) use of anticoagulants; Z79.82 Long term (current) use of aspirin; Z85.51 Personal history of malignant neoplasm of bladder; Z92.21 Personal history of antineoplastic chemotherapy; Z95.5 Presence of coronary angioplasty implant and graft; Z86.73 Personal history of transient ischemic attack (TIA), and cerebral infarction without residual deficits; Z80.41 Family history of malignant neoplasm of ovary
CPT/HCPCS: 70450; 70496; 70498; 70551; 71045; 80048; 80053; 80061; 80307; 81001; 82550; 82948; 83036; 84484; 85025; 85384; 85610; 85730; 86850; 86900; 86901; 87086; 92610; 93005; 93308; 95819; 97162; 97167; 99285; G0378; G8987; G8988; G8996; G8997; G8998; J7030; Q9967

== ENCOUNTER 2017-10-15 16:34 | Observation (INO) ==
[2017-10-15] MEDS: Sod Chloride 0.9% Inj 1,000 ML IV.CONT SCH (16:54)
--- NOTE | 2017-10-15 17:13 | CT ---
EXAM DATE: 10/15/2017 5:08 PM EDT AGE/SEX: 87 years / Male INDICATIONS: Stroke alert, slurred speech. CLINICAL DATA: This is the patient's initial encounter. Patient reports that signs and symptoms have been present for 1 day and indicates a pain score of Nonresponsive. MEDICAL/SURGICAL HISTORY: Carcinoma, bladder. Hypertension. Parkinson's disease. TIA. . Stent. RADIATION DOSE: 29.19 CTDI (mGy) COMPARISON: C, CTA BRAIN W 3D RECON, 06/11/2017. . TECHNIQUE: CT of the head without contrast. Using automated exposure control and adjustment of the mA and/or kV according to patient size, radiation dose was kept as low as reasonably achievable to ob tain optimal diagnostic quality images. DICOM format image data is available electronically for revi ew and comparison. FINDINGS: Cerebrum: The ventricles are normal for age. No evidence of midline shift, mass lesion, hemorrhage or acute infarction. No extraaxial fluid collections are seen. Posterior Fossa: The cerebellum and brainstem are intact. The 4th ventricle is midline. The cerebe llopontine angle is unremarkable. Extracranial: The visualized portion of the orbits is intact. Skull: The calvaria is intact. No evidence of skull fracture. CONCLUSION: No acute intracranial findings. Report was called by [ Stiven Lentz at 1703] Electronically signed by: Aguila Saleem MD 10/15/2017 5:12 PM EDT
[2017-10-15 17:17] LABS: Baso % (Auto) 0.6 % (0.0-2.0); Eos # (Auto) 0.1 th/mm3 (0.0-0.4); Eos % (Auto) 1.3 % (0.0-4.0); Hematocrit 38.5 % (39.0-51.0); Hemoglobin 13.5 gm/dL (13.0-17.0); Lymph # (Auto) 1.7 th/mm3 (1.0-4.8); Lymph % (Auto) 32.3 % (9.0-44.0); Mean Corpuscular Hemoglobin 31.3 pg (27.0-34.0); Mean Corpuscular Volume 89.5 fL (80.0-100.0); Mean Platelet Volume 8.7 fL (7.0-11.0); Mono # (Auto) 0.6 th/mm3 (0.0-0.9); Mono % (Auto) 11.3 % (0.0-8.0); Neut # (Auto) 2.8 th/mm3 (1.8-7.7); Neut % (Auto) 54.5 % (16.0-70.0); Platelet Count 130 th/mm3 (150-450); Red Cell Distribution Width 14.7 % (11.6-17.2); White Blood Count 5.2 th/mm3 (4.0-11.0)
--- NOTE | 2017-10-15 17:23 | ED ---
HPI General Chief Complaint: Neuro Symptoms/Deficit Stated Complaint: neuro Time Seen by Provider: 10/15/17 16:49 Source: patient and family Mode of arrival: wheelchair Limitations: other (possible stroke) History of Present Illness HPI Narrative: 87-year-old male the presents to the ED for evaluation of possible stroke. Patient allegedly slowly having symptoms since 315 per family. Around 315 she started having slurred speech and episode of confusion with what the family described as drooling. This lasted for about 40-50 minutes. Patient has gradually improved per family. He does have a history of TIAs and minor strokes in the past. He follows with Dr. Flores. Per family today noted any specific weakness to us extremity but they did noted that he was weak on his legs. He has a history of Parkinson's. Patient himself is able to answer some questions but does take some time to answer. Denies any chest pain or shortness of breath. No urinary or bowel movement issues. Patient does take Eliquis and aspirin. History of atrial fibrillation, hypertension, CAD. Per family no injury. Per family currently the patient is back to baseline. Able to answer to the family and appears to respond to them. Related Data Home Medications Medication Instructions Recorded Confirmed alprazolam 0.25 mg PO BID PRN 10/15/17 10/15/17 apixaban 5 mg PO BID 10/15/17 10/15/17 aspirin [Aspir-81] 81 mg PO DAILY 10/15/17 10/15/17 carbidopa-levodopa 1 tab PO QID 10/15/17 10/15/17 cholecalciferol (vitamin D3) 1,000 unit PO DAILY 10/15/17 10/15/17 isosorbide mononitrate 30 mg PO DAILY 10/15/17 10/15/17 lisinopril 10 mg PO DAILY 10/15/17 10/15/17 prednisolone acetate 1 drp OPHTHALMIC (EYE) QID 10/15/17 10/15/17 propranolol 10 mg PO BID 10/15/17 10/15/17 Allergies Allergy/AdvReac Type Severity Reaction Status Date / Time pseudoephedrine AdvReac Unknown urinary Verified 10/15/17 16:50 retention Review of Systems ROS: all other systems reviewed are negative [facility] Medical History Medical History A-fib (Acute) Bladder cancer (Acute) Heart attack (Acute) Hypercholesteremia (Acute) Hypertension (Acute) Parkinson disease (Acute) TIA (transient ischemic attack) (Acute) Surgical History Surgical History H/O heart artery stent (Acute) Hx of cardiac cath (Acute) Social History Social History Substance History: No History of Abuse Second Hand Smoke Exposure: No Smoking Status: Former smoker How Often Do You Have a Drink Containing Alcohol: 2 to 4 times a month Recent Travel in [facility] within the Last 8 Weeks: No Recent Out of Country Travel within the Last 8 Weeks: No Immunization History Tetanus Immunization: <5 Years Hx Influenza Vaccine This Season: Yes Exam Narrative Exam Narrative: GENERAL: Well-groomed SKIN: Focused skin assessment warm/dry. HEAD: Atraumatic. Normocephalic. EYES: Pupils equal and round 2 mm bilaterally but reactive to light. No scleral icterus. No injection or drainage. EOM intact bilaterally. ENT: No nasal bleeding or discharge. Mucous membranes pink and moist. Tongue is midline. No uvula deviation. NECK: Trachea midline. No JVD. CARDIOVASCULAR: Regular rate and rhythm. No murmur appreciated. RESPIRATORY: No accessory muscle use. Clear to auscultation. Breath sounds equal bilaterally. GASTROINTESTINAL: Abdomen soft, non-tender, nondistended. Hepatic and splenic margins not palpable. MUSCULOSKELETAL: No obvious deformities. No clubbing. No cyanosis. No edema. Full range of motion of the upper and lower extremities bilaterally. 5 out of 5 strength bilaterally. Some drift noted on the right side compared to the left. 2+ pulses bilaterally. Sensation appears to be intact bilaterally. Pronator drift with slight drift noted on the right compared to left. Finger to nose status appears to be intact. Patient does have tremor bilaterally which appears to be chronic secondary to the Parkinson's. NEUROLOGICAL: Awake and alert and oriented 4. No obvious cranial nerve deficits. Motor grossly within normal limits. Normal speech. PSYCHIATRIC: Appropriate mood and affect; insight and judgment normal. Course Initial Documented Vital Signs Pulse Rate 67 10/15/17 16:43 Respiratory Rate 18 10/15/17 16:43 Blood Pressure 165/80 H 10/15/17 16:43 Pulse Oximetry 100 10/15/17 16:43 Last Documented Vital Signs Temperature 97.8 F 10/15/17 16:47 Pulse Rate 70 10/15/17 17:05 Respiratory Rate 18 10/15/17 17:05 Blood Pressure 145/64 H 10/15/17 17:05 Pulse Oximetry 98 10/15/17 17:28 Critical Care Time Critical Care Time: Yes Total Critical Care Time: 30 Attestation: Aggregate critical care time was 30 minutes. Time to perform other separately billable procedures was not included in the critical care time. My time did not include minutes spent treating any other patients simultaneously or on activities that did not directly contribute to the patient's treatment. The services I provided to this patient were to treat and/or prevent clinically significant deterioration that could result in: [permanent Disability and or -] I provided critical care services requiring my management, as noted below: Chart data review, documentation time, medication orders and management, vital sign assessments/reviewing monitor data, ordering and reviewing lab tests, ordering and interpreting/reviewing x-rays and diagnostic studies, care of the patient and discussion of the patient with the admitting physicians. NIH Stroke Scale NIHSS Time Completed NIHSS Time Completed: 16:45 NIH Stroke Scale Level of Consciousness: 0-Alert Orientation Questions: 2-Neither task correct Responds to Commands: 0-Both tasks correct Gaze Eye Movement: 0-Horizontal movement WNL Visual Stack: 0-No visual field defect Facial Movement: 1-Minor facial palsy Motor Functions Arm LEFT: 0-No drift Motor Functions Arm RIGHT: 1-Drift before 10 seconds Motor Functions Leg LEFT: 0-No drift Motor Functions Leg RIGHT: 1-Drift before 5 seconds Limb Ataxia: 0-No ataxia Sensory Loss: 0-No sensory loss Best Language: 2-Severe aphasia Articulation: 1-Mild dysarthia Extinction or Inattention Sensory: 0-Absent Total: 8 Medical Decision Making MDM Narrative Medical decision making narrative: CTs were negative. My attending again spoke with Dr. [id number] male the presents to the ED for evaluation of possible stroke. After I evaluated the patient, my attending Dr Carmichael was immediately made aware of case. He called stroke alert on patient and spoke with Dr Flores. No TPA candidate secondary to being on eliquis and aspirin. Labs and CTs ordered. Discussed CT, and CTA results along with patient's physical exam and NIH score 6 -8, which has not worsened and it has been spur family this is truly his baseline and does not appear to have any worsening... Dr. Flores recommended aspirin 81 mg p.o. 1 and admission Patient was admitted to the residents who agreed with admission. Family and patient aware of need for admission and agree with plan. All questions answered to the best of my ability. Medical Screen Exam Complete: Yes Emergency Medical Condition: Yes Differential Diagnosis Differential Diagnosis: CVA versus TIA versus altered mental status Medical Records Medical records reviewed: Yes I reviewed the patient's medical records. Lab Data Lab results reviewed: Yes I reviewed the patient's lab results. Lab results narrative: troponin negative Result diagrams: 10/15/17 16:55 10/15/17 16:55 Lab Results 10/15/17 10/15/17 10/15/17 Range/Units 16:45 16:55 16:55 WBC 5.2 (4.0-11.0) th/mm3 RBC 4.30 L (4.50-5.90) mil/mm3 Hgb 13.5 (13.0-17.0) gm/dL POC Hgb (Calc) (13.0-17.0) g/dL Hct 38.5 L (39.0-51.0) % POC Hct (39-51.0) % MCV 89.5 (80.0-100.0) fL MCH 31.3 (27.0-34.0) pg MCHC 35.0 (32.0-36.0) % RDW 14.7 (11.6-17.2) % Plt Count 130 L (150-450) th/mm3 MPV 8.7 (7.0-11.0) fL Neut % (Auto) 54.5 (16.0-70.0) % Lymph % (Auto) 32.3 (9.0-44.0) % [place] % (Auto) 11.3 H (0.0-8.0) % Eos % (Auto) 1.3 (0.0-4.0) % Baso % (Auto) 0.6 (0.0-2.0) % Neut # (Auto) 2.8 (1.8-7.7) th/mm3 Lymph # (Auto) 1.7 (1.0-4.8) th/mm3 [place] # (Auto) 0.6 (0.0-0.9) th/mm3 Eos # (Auto) 0.1 (0.0-0.4) th/mm3 Baso # (Auto) 0.0 (0.0-0.2) th/mm3 WBC Differential . Differential Comment Auto diff final PT 11.7 H (9.8-11.6) sec INR 1.2 Ratio APTT 28.2 (24.3-30.1) sec POC Sodium (137-144) mmol/L Sodium (136-145) meq/L POC Potassium (3.6-5.0) mmol/L Potassium (3.5-5.1) meq/L POC Chloride (102-111) mmol/L Chloride (98-107) meq/L Carbon Dioxide (21.0-32.0) meq/L Anion Gap (5-15) meq/L POC BUN (5-21) mg/dL BUN (7-18) mg/dL Creatinine (0.60-1.30) mg/dL POC Creatinine (0.6-1.3) mg/dL Estimated GFR (>89) mL/min POC Glucose 111 H (68-110) mg/dl Random Glucose (74-106) mg/dL Calcium (8.5-10.1) mg/dL Total Creatine Kinase (39-308) U/L Troponin I (0.02-0.05) ng/mL Urine Color (Yellw/Straw) Urine Clarity (Clear) Urine pH (5.0-8.5) Ur Specific [place] (1.002-1.035) Urine Protein (Neg-Trace) mg/dL Urine Glucose (UA) (Negative) mg/dL Urine Ketones (Negative) mg/dL Urine Occult Blood (Negative) Urine Nitrate (Negative) Urine Bilirubin (Negative) Urine Urobilinogen (Less than 2) mg/dL Ur Leukocyte Esterase (Negative) Urine RBC (0-3) /hpf Urine WBC (0-5) /hpf Hyaline Casts (0-3) /lpf Micro UA Comment Urine Culture Comments Blood Type Antibody Screen 10/15/17 10/15/17 10/15/17 Range/Units 16:55 16:55 16:55 WBC (4.0-11.0) th/mm3 RBC (4.50-5.90) mil/mm3 Hgb (13.0-17.0) gm/dL POC Hgb (Calc) 12.2 L (13.0-17.0) g/dL Hct (39.0-51.0) % POC Hct 36.0 L (39-51.0) % MCV (80.0-100.0) fL MCH (27.0-34.0) pg MCHC (32.0-36.0) % RDW (11.6-17.2) % Plt Count (150-450) th/mm3 MPV (7.0-11.0) fL Neut % (Auto) (16.0-70.0) % Lymph % (Auto) (9.0-44.0) % [place] % (Auto) (0.0-8.0) % Eos % (Auto) (0.0-4.0) % Baso % (Auto) (0.0-2.0) % Neut # (Auto) (1.8-7.7) th/mm3 Lymph # (Auto) (1.0-4.8) th/mm3 [place] # (Auto) (0.0-0.9) th/mm3 Eos # (Auto) (0.0-0.4) th/mm3 Baso # (Auto) (0.0-0.2) th/mm3 WBC Differential Differential Comment PT (9.8-11.6) sec INR Ratio APTT (24.3-30.1) sec POC Sodium 139 (137-144) mmol/L Sodium 140 (136-145) meq/L POC Potassium 4.1 (3.6-5.0) mmol/L Potassium 4.2 (3.5-5.1) meq/L POC Chloride 99 L (102-111) mmol/L Chloride 104 (98-107) meq/L Carbon Dioxide 29.2 (21.0-32.0) meq/L Anion Gap 7 (5-15) meq/L POC BUN 14 (5-21) mg/dL BUN 14 (7-18) mg/dL Creatinine 1.13 (0.60-1.30) mg/dL POC Creatinine 1.1 (0.6-1.3) mg/dL Estimated GFR 61 L (>89) mL/min POC Glucose 95 (68-110) mg/dl Random Glucose 94 (74-106) mg/dL Calcium 9.1 (8.5-10.1) mg/dL Total Creatine Kinase 35 L (39-308) U/L Troponin I Less than 0.02 L (0.02-0.05) ng/mL Urine Color (Randyw/Straw) Urine Clarity (Clear) Urine pH (5.0-8.5) Ur Specific [place] (1.002-1.035) Urine Protein (Neg-Trace) mg/dL Urine Glucose (UA) (Negative) mg/dL Urine Ketones (Negative) mg/dL Urine Occult Blood (Negative) Urine Nitrate (Negative) Urine Bilirubin (Negative) Urine Urobilinogen (Less than 2) mg/dL Ur Leukocyte Esterase (Negative) Urine RBC (0-3) /hpf Urine WBC (0-5) /hpf Hyaline Casts (0-3) /lpf Micro UA Comment Urine Culture Comments Blood Type A Positive Antibody Screen Negative 10/15/17 Range/Units 17:30 WBC (4.0-11.0) th/mm3 RBC (4.50-5.90) mil/mm3 Hgb (13.0-17.0) gm/dL POC Hgb (Calc) (13.0-17.0) g/dL Hct (39.0-51.0) % POC Hct (39-51.0) % MCV (80.0-100.0) fL MCH (27.0-34.0) pg MCHC (32.0-36.0) % RDW (11.6-17.2) % Plt Count (150-450) th/mm3 MPV (7.0-11.0) fL Neut % (Auto) (16.0-70.0) % Lymph % (Auto) (9.0-44.0) % [place] % (Auto) (0.0-8.0) % Eos % (Auto) (0.0-4.0) % Baso % (Auto) (0.0-2.0) % Neut # (Auto) (1.8-7.7) th/mm3 Lymph # (Auto) (1.0-4.8) th/mm3 [place] # (Auto) (0.0-0.9) th/mm3 Eos # (Auto) (0.0-0.4) th/mm3 Baso # (Auto) (0.0-0.2) th/mm3 WBC Differential Differential Comment PT (9.8-11.6) sec INR Ratio APTT (24.3-30.1) sec POC Sodium (137-144) mmol/L Sodium (136-145) meq/L POC Potassium (3.6-5.0) mmol/L Potassium (3.5-5.1) meq/L POC Chloride (102-111) mmol/L Chloride (98-107) meq/L Carbon Dioxide (21.0-32.0) meq/L Anion Gap (5-15) meq/L POC BUN (5-21) mg/dL BUN (7-18) mg/dL Creatinine (0.60-1.30) mg/dL POC Creatinine (0.6-1.3) mg/dL Estimated GFR (>89) mL/min POC Glucose (68-110) mg/dl Random Glucose (74-106) mg/dL Calcium (8.5-10.1) mg/dL Total Creatine Kinase (39-308) U/L Troponin I (0.02-0.05) ng/mL Urine Color Yellow (Yellw/Straw) Urine Clarity Clear (Clear) Urine pH 6.0 (5.0-8.5) Ur Specific [place] 1.020 (1.002-1.035) Urine Protein Negative (Neg-Trace) mg/dL Urine Glucose (UA) Negative (Negative) mg/dL Urine Ketones Trace (Negative) mg/dL Urine Occult Blood Moderate H (Negative) Urine Nitrate Negative (Negative) Urine Bilirubin Negative (Negative) Urine Urobilinogen 2.0 H (Less than 2) mg/dL Ur Leukocyte Esterase Negative (Negative) Urine RBC 3 (0-3) /hpf Urine WBC 3 (0-5) /hpf Hyaline Casts 5 (0-3) /lpf Micro UA Comment Culture not ind Urine Culture Comments Culture not ind Blood Type Antibody Screen Imaging Data Attestation: I personally reviewed and interpreted this imaging study as follows : Radiologist's impression: Chest X-Ray 10/15/17 16:49 CONCLUSION: Minimal basilar atelectasis. No effusion or pneumothorax. Head CT 10/15/17 16:49 CONCLUSION: No acute intracranial findings. Report was called by [ Stiven Lentz at 1703] Head CTA 10/15/17 17:07 CONCLUSION: 1. Diffusely calcified intracranial carotid arteries. 2. No large vessel occlusion or significant intracranial stenosis. Neck CTA 10/15/17 17:07 CONCLUSION: 1. Minimal carotid plaque bilaterally without significant carotid flow- limiting stenosis. 2. Symmetric vertebral arteries with mild circumferential stenosis distally near the vertebrobasilar junction. ECG Data Attestation: I personally reviewed and interpreted this ECG as follows: Interpretation: EKG showed junctional rhythm but no sign of acute ischemia or arrhythmia. Read by me and attending. MD interval of 118 ms. Discharge Plan Discharge Disposition Patient Disposition: 30 Still Patient Discharge Details Diagnosis: Acute CVA (cerebrovascular accident) Physicians Team ED Provider: Adis Carmichael ED Midlevel Provider: Jovany Lentz Primary Care Provider: [facility] Attending Provider: Al Rooney Discharge Interventions Interventions: Vital Signs Last Done: 10/15/17 17:05 Status ED Status: Admitted Patient
[2017-10-15 17:27] LABS: Activated Partial Thrombo Time 28.2 sec (24.3-30.1); INR 1.2 Ratio; Prothrombin Time 11.7 sec (9.8-11.6)
[2017-10-15 17:35] LABS: Anion Gap 7 meq/L (5-15); Blood Urea Nitrogen 14 mg/dL (7-18); Calcium 9.1 mg/dL (8.5-10.1); Carbon Dioxide 29.2 meq/L (21.0-32.0); Chloride 104 meq/L (98-107); Glomerular Filtration Rate 61 mL/min (>89); Glucose,Random 94 mg/dL (74-106); Potassium 4.2 meq/L (3.5-5.1); Sodium 140 meq/L (136-145)
--- NOTE | 2017-10-15 17:47 | CT ---
EXAM DATE: 10/15/2017 5:28 PM EDT AGE/SEX: 87 years / Male INDICATIONS: Stroke alert, Slurred speech. CLINICAL DATA: This is the patient's initial encounter. Patient reports that signs and symptoms have been present for 1 day and indicates a pain score of Nonresponsive. MEDICAL/SURGICAL HISTORY: Non-responsive. Non-responsive. RADIATION DOSE: 11.07 CTDI (mGy) ; Combined studies [place] [facility] [place]. . TECHNIQUE: Volumetric scanning was performed using a multi-row detector CT scanner during bolus infu jami of 75 ml Visipaque 320 (iodixanol) nonionic water-soluble contrast as a cumulative dose for mul tiple exams. The data was post processed with a variety of visualization algorithms including full volume maximum intensity projection, multi-planar sliding thin slab reformation, curved planar reform ation, and surface rendering techniques. Using automated exposure control and adjustment of the mA a nd/or kV according to patient size, radiation dose was kept as low as reasonably achievable to obtain optimal diagnostic quality images. DICOM format image data is available electronically for review a nd comparison. FINDINGS: Anterior Circulation: Intracranial Carotid Arteries: Diffusely calcified with at least mild diffuse stenosis bilaterally. LISBET: There is no evidence for aneurysm, vessel truncation or stenosis, and no evidence for vascular m alformation. MCA: There is no evidence for aneurysm, vessel truncation or stenosis, and no evidence for vascular m alformation. Posterior Circulation: Distal Vertebral Arteries: Distal Vertebral arteries are symetrical and patent. Basilar Artery: There is no evidence for aneurysm, vessel truncation or stenosis, and no evidence for vascular malformation. NASCAR DRIVER and Cerebellar Branches: There is no evidence for aneurysm, vessel truncation or stenosis, and no evidence for vascular malformation. CONCLUSION: 1. Diffusely calcified intracranial carotid arteries. 2. No large vessel occlusion or significant intracranial stenosis. Electronically signed by: Cezar Jacob MD 10/15/2017 5:45 PM EDT
--- NOTE | 2017-10-15 17:48 | XR ---
EXAM DATE: 10/15/2017 5:43 PM EDT AGE/SEX: 87 years / Male INDICATIONS: Stroke. CLINICAL DATA: This is the patient's initial encounter. Patient reports that signs and symptoms have been present for 1 day and indicates a pain score of Nonresponsive. MEDICAL/SURGICAL HISTORY: Non-responsive. Non-responsive. [place] [facility] [place] . FINDINGS: Minimal basilar density, probably atelectasis. Mildly tortuous aorta. No pleural effusion. No pneumot horax. CONCLUSION: Minimal basilar atelectasis. No effusion or pneumothorax. Electronically signed by: Terry Davis MD 10/15/2017 5:47 PM EDT
[2017-10-15 17:55] LABS: Creatine Kinase 35 U/L (39-308)
--- NOTE | 2017-10-15 17:56 | CT ---
EXAM DATE: 10/15/2017 5:50 PM EDT AGE/SEX: 87 years / Male INDICATIONS: Stroke alert, Slurred speech. CLINICAL DATA: This is the patient's initial encounter. Patient reports that signs and symptoms have been present for 1 day and indicates a pain score of Nonresponsive. MEDICAL/SURGICAL HISTORY: Non-responsive. Non-responsive. RADIATION DOSE: 11.07 CTDI (mGy) ; Combined studies COMPARISON: [facility], CTA CAROTID ARTERIES W 3D RECON, 06/11/2017. . TECHNIQUE: Volumetric scanning was performed using a multirow detector CT scanner during bolus infus ion of 75 ml Visipaque 320 (iodixanol) nonionic water-soluble contrast as a cumulative dose for mult iple exams. The data was postprocessed with a variety of visualization algorithms including full-vo lume maximum intensity projection, multiplanar sliding thin-slab reformation, curved-planar reformati on, and surface-rendering techniques. Using automated exposure control and adjustment of the mA and/ or kV according to patient size, radiation dose was kept as low as reasonably achievable to obtain op timal diagnostic quality images. DICOM format image data is available electronically for review and comparison. Percent stenosis is calculated using the diameter of the stenotic region over the diameter of the nor mal distal internal carotid artery. FINDINGS: Aortic Arch: There is a bovine type two-vessel origin of the great vessels from the aorta. No evide nce of ostial narrowing Right Carotid: The common carotid artery is intact. Eccentric calcified plaque extending from the ca rotid bulb to the origin of the internal carotid arteries with resultant less than 20% stenosis. Inte rnal carotid artery is otherwise patent to the skull base. The external carotid artery is intact. Left Carotid: The common carotid artery is intact. Minimal eccentric distal carotid bulb plaque with out significant flow-limiting stenosis. Calcified plaque at the origin of the internal carotid artery with resultant less than 20% stenosis. Internal carotid artery is otherwise patent to the skull base . The external carotid artery is intact. Vertebrals: The vertebral arteries have a symmetric diameter. Circumferential calcified plaque in th e distal vertebral arteries bilaterally. The vertebrobasilar junction with resultant mild stenosis.. General Findings: Lung apices are clear. Thyroid is unremarkable by CT. No significant adenopathy. CONCLUSION: 1. Minimal carotid plaque bilaterally without significant carotid flow-limiting stenosis. 2. Symmetric vertebral arteries with mild circumferential stenosis distally near the vertebrobasilar junction. Electronically signed by: Cezar Jacob MD 10/15/2017 5:54 PM EDT
[2017-10-15 18:14] LABS: Bilirubin,Urine Negative (Negative); Clarity,Urine Clear (Clear); Color,Urine Yellow (Yellw/Straw); Glucose,Urine (UA) Negative (Negative); Hyaline Casts,Urine 5 /lpf (0-3); Leukocyte Esterase,Urine Negative (Negative); Nitrite,Urine Negative (Negative)
--- NOTE | 2017-10-15 19:41 | P.HPFP ---
History of Present Illness Primary Care Physician: Phys[facility] Chief Complaint: TIA History of Present Illness: Patient is a 87-year-old male with past medical history of atrial fibrillation ( on aspirin and Eliquis), hypertension, Parkinson's disease and multiple TIAs in the past who was brought to the ED by his family members due to symptoms of confusion, weakness and non-response to verbal commands that began at 3 PM today. at bedside provided the majority of history. She reports that patient was sleeping in his recliner and she noticed he was drooling, slumped forward and did not respond to her when she spoke to him. The symptoms lasted about 45 minutes and then fluctuated in severity. She states he has had 4 other TIAs in the past with the most recent one being in May 2017. She also reports that patient symptoms were similar to when he had the TIA in the past. Denies seizure-like activity (jerky-limb movements, foaming at the mouth, or bowel incontinence). Patient did urinate himself. Patient denies any pain and states he feels well. Denies chest pain, shortness of breath, vision issues, fever, chills, n/v. Patient is alert and oriented 2 (self and location). reports that patient mental status and functional status has improved while in the emergency room. Of note: Patient lives with his who assists him with all ADLs. Baseline patient ambulates with a walker but does require assistance. Per patient is continent of bladder and bowel. Reports that they do not have any home health assistance as she is able to take care of her and has additional help from children and other family members. She does not want any type of therapy (physical therapy, occupational therapy or speech therapy) for her as he has short-term memory loss and the services were not helpful for him in the past. - Diagnosis (1) TIA (transient ischemic attack) (2) Atrial fibrillation (3) Hypertension (4) Parkinson disease (5) Nutrition, metabolism, and development symptoms Review of Systems All other systems reviewed negative except as stated in HPI PMFSH - History History Provided By: Family Member - Medical History Medical History: Medical History (Last Updated 10/15/17 @ 21:27 by Gregg Valdez MD, R2) A-fib Bladder cancer Heart attack Hypercholesteremia Hypertension Parkinson disease TIA (transient ischemic attack) - Surgical History Surgical History: Surgical History (Last Updated 10/15/17 @ 16:48 by Marie Cooper) H/O heart artery stent Hx of cardiac cath - Tobacco History Second Hand Smoke Exposure: No Smoking Status: Former smoker - Alcohol History How Often Do You Have a Drink Containing Alcohol: 2 to 4 times a month - Substance Use History Substance History: No History of Abuse - Travel History Recent Travel in the [place] Within the Last 8 Weeks: No Recent Travel Out of the Country Within the Last 8 Weeks: No - Immunization History Tetanus Immunization: <5 Years Hx Influenza Vaccine This Season: Yes Medications and Allergies Active Medications: Active Medications Apixaban (Eliquis) 5 mg PO BID GEMMA Aspirin (Ecotrin) 81 mg PO DAILY GMEMA Carbidopa/Levodopa (Sinemet 25/100 Mg) 1 tab PO QID GEMMA Sodium Chloride (Ns Inj) 1,000 mls @ 70 mls/hr IV.CONT .[id number] GEMMA Stop: 10/16/17 07:17 Last Admin: 10/15/17 16:54 Dose: 70 mls/hr Isosorbide Mononitrate (Imdur) 30 mg PO DAILY@0700 GEMMA Lisinopril (Prinivil) 10 mg PO DAILY [facility] Prednisolone Acetate (Pred Forte 1% Opth Susp) 1 drop EACH EYE QID GEMMA Propranolol HCl (Inderal) 10 mg PO BID GEMMA Sodium Chloride (Ns Flush) 2 ml IV.FLUSH PRN PRN PRN Reason: FLUSH AFTER USING IV ACCESS Allergies Allergy/AdvReac Type Severity Reaction Status Date / Time pseudoephedrine AdvReac Unknown urinary Verified 10/15/17 16:50 retention Home Medications Medication Instructions Recorded Confirmed Type alprazolam 0.25 mg PO BID PRN 10/15/17 10/15/17 History apixaban 5 mg PO BID 10/15/17 10/15/17 History aspirin [Aspir-81] 81 mg PO DAILY 10/15/17 10/15/17 History carbidopa-levodopa 1 tab PO QID 10/15/17 10/15/17 History cholecalciferol (vitamin D3) 1,000 unit PO DAILY 10/15/17 10/15/17 History isosorbide mononitrate 30 mg PO DAILY 10/15/17 10/15/17 History lisinopril 10 mg PO DAILY 10/15/17 10/15/17 History prednisolone acetate 1 drp OPHTHALMIC (EYE) QID 10/15/17 10/15/17 History propranolol 10 mg PO BID 10/15/17 10/15/17 History Exam Vital signs: Vital Signs 10/15/17 16:43 10/15/17 16:47 10/15/17 17:05 Temperature 97.8 F Pulse Rate 67 70 Respiratory Rate 18 18 Blood Pressure 165/80 H 145/64 H Pulse Oximetry 100 98 10/15/17 17:28 Temperature Pulse Rate Respiratory Rate Blood Pressure Pulse Oximetry 98 Intake & Output 10/15/17 10/15/17 10/16/17 06:59 18:59 06:59 Weight 86.183 kg - Constitutional no acute distress, cooperative - Routine HEENT Exam Head: Present: normocephalic, atraumatic. Absent: laceration, scalp tenderness Eye: Present: EOMI, PERRL. Absent: scleral injection, nystagmus ENT: Present: mucous membranes moist - Routine Neck Exam Present: supple - Routine Respiratory Exam Present: CTA bilaterally, crackles (Mild crackles left lung base). Absent: accessory muscle use - Routine Cardiovascular Exam Present: RRR, S1, S2. Absent: murmur, gallop, rubs - Routine Abdominal Exam Present: soft, normoactive bowel sounds. Absent: tenderness, distended, rebound , guarding - Routine Extremities Exam Present: edema (+2 edema around ankles bilaterally), normal capillary refill, joint swelling. Absent: cyanosis, clubbing, calf tenderness - Routine Skin Exam Present: intact. Absent: erythema - Routine Neurological Exam Present: alert, sensory deficit (Trigeminal nerve distribution), plantar reflex , moving all extremities (Patient able to move all 4 extremities against gravity ), normal tone, tremors (Mild intention tremor of upper extremities, chronic). Absent: facial asymmetry, normal speech Patient was alert and oriented 2 (self and location), mumbled speech (improving ) Patient was able to follow commands during physical exam and neuro checks Patient responded to questions appropriately Cerebellar exam: Patient able to perform at slow-pace Results - Labs Result diagrams: 10/15/17 16:55 10/15/17 16:55 Abnormal lab results 10/15/17 10/15/17 10/15/17 Range/Units 16:45 16:55 16:55 RBC 4.30 L (4.50-5.90) mil/mm3 POC Hgb (Calc) (13.0-17.0) g/dL Hct 38.5 L (39.0-51.0) % POC Hct (39-51.0) % Plt Count 130 L (150-450) th/mm3 [place] % (Auto) 11.3 H (0.0-8.0) % PT 11.7 H (9.8-11.6) sec POC Chloride (102-111) mmol/L Estimated GFR (>89) mL/min POC Glucose 111 H (68-110) mg/dl Total Creatine Kinase (39-308) U/L Troponin I (0.02-0.05) ng/mL Urine Occult Blood (Negative) Urine Urobilinogen (Less than 2) mg/dL 10/15/17 10/15/17 10/15/17 Range/Units 16:55 16:55 17:30 RBC (4.50-5.90) mil/mm3 POC Hgb (Calc) 12.2 L (13.0-17.0) g/dL Hct (39.0-51.0) % POC Hct 36.0 L (39-51.0) % Plt Count (150-450) th/mm3 [place] % (Auto) (0.0-8.0) % PT (9.8-11.6) sec POC Chloride 99 L (102-111) mmol/L Estimated GFR 61 L (>89) mL/min POC Glucose (68-110) mg/dl Total Creatine Kinase 35 L (39-308) U/L Troponin I Less than 0.02 L (0.02-0.05) ng/mL Urine Occult Blood Moderate H (Negative) Urine Urobilinogen 2.0 H (Less than 2) mg/dL Short CBC 10/15/17 Range/Units 16:55 WBC 5.2 (4.0-11.0) th/mm3 Hgb 13.5 (13.0-17.0) gm/dL Hct 38.5 L (39.0-51.0) % Plt Count 130 L (150-450) th/mm3 BMP 10/15/17 16:55 Sodium 140 Potassium 4.2 Chloride 104 Carbon Dioxide 29.2 BUN 14 Creatinine 1.13 Calcium 9.1 Cardiac Enzymes 10/15/17 Range/Units 16:55 Total Creatine Kinase 35 L (39-308) U/L Troponin I Less than 0.02 L (0.02-0.05) ng/mL Urine 10/15/17 Range/Units 17:30 Urine Color Yellow (Yellw/Straw) Urine Clarity Clear (Clear) Urine pH 6.0 (5.0-8.5) Ur Specific [place] 1.020 (1.002-1.035) Urine Protein Negative (Neg-Trace) mg/dL Urine Glucose (UA) Negative (Negative) mg/dL - Imaging Impressions Chest X-Ray 10/15/17 16:49 CONCLUSION: Minimal basilar atelectasis. No effusion or pneumothorax. Head CT 10/15/17 16:49 CONCLUSION: No acute intracranial findings. Report was called by [ Stiven Lentz at 1703] Head CTA 10/15/17 17:07 CONCLUSION: 1. Diffusely calcified intracranial carotid arteries. 2. No large vessel occlusion or significant intracranial stenosis. Neck CTA 10/15/17 17:07 CONCLUSION: 1. Minimal carotid plaque bilaterally without significant carotid flow- limiting stenosis. 2. Symmetric vertebral arteries with mild circumferential stenosis distally near the vertebrobasilar junction. Caprini VTE Risk Assessment Caprini VTE Risk Assessment: Moderate/High Risk (score >= 2) (Patient is already on eliquis medication) Caprini Risk Assessment Model: Point Value = 1 Point Value = 2 Point Value = 3 Point Value = 5 Age 41-60 Minor surgery BMI > 25 kg/m2 Swollen legs Varicose veins or History of unexplained or recurrent spontaneous Oral contraceptives or hormone replacement Sepsis (< 1 month) Serious lung disease, including pneumonia (< 1 month) Abnormal pulmonary function Acute myocardial infarction Congestive heart failure (< 1 month) History of inflammatory bowel disease Medical patient at bed rest Age 61-74 Arthroscopic surgery Major open surgery (> 45 min) Laparoscopic surgery (> 45 min) Malignancy Confined to bed (> 72 hours) Immobilizing plaster cast Central venous access Age >= 75 History of VTE Family history of VTE Factor V Leiden Prothrombin [id number] Lupus anticoagulant Anticardiolipin antibodies Elevated serum homocysteine Heparin-induced thrombocytopenia Other congenital or acquired thrombophilia Stroke (< 1 month) Elective arthroplasty Hip, pelvis, or leg fracture Acute spinal cord injury (< 1 month) Prophylaxis Regimen: Total Risk Factor Score Risk Level Prophylaxis Regimen 0-1 Low Early ambulation 2 Moderate Order ONE of the following: *Sequential Compression Device (SCD) *Heparin 5000 units SQ BID 3-4 Higher Order ONE of the following medications: *Heparin 5000 units SQ TID *Enoxaparin/Lovenox 40 mg SQ daily (WT < 150 kg, CrCl > 30 mL/min) *Enoxaparin/Lovenox 30 mg SQ daily (WT < 150 kg, CrCl > 10-29 mL/min) *Enoxaparin/Lovenox 30 mg SQ BID (WT < 150 kg, CrCl > 30 mL/min) AND/OR *Sequential Compression Device (SCD) 5 or more Highest Order ONE of the following medications: *Heparin 5000 units SQ TID (Preferred with Epidurals) *Enoxaparin/Lovenox 40 mg SQ daily (WT < 150 kg, CrCl > 30 mL/min) *Enoxaparin/Lovenox 30 mg SQ daily (WT < 150 kg, CrCl > 10-29 mL/min) *Enoxaparin/Lovenox 30 mg SQ BID (WT < 150 kg, CrCl > 30 mL/min) AND *Sequential Compression Device (SCD) Assessment and Plan - Assessment (1) TIA (transient ischemic attack) Code(s): G45.9 - Transient cerebral ischemic attack, unspecified Status: Acute Plan: Patient with multiple history of TIAs and atrial fibrillation on aspirin and Eliquis. Patient was recently admitted in May 2017 for CVA. Imaging studies and EEG test done (head and neck CTA, brain CT and MRI) on 05/2017 did not show any acute findings. Echo (05/2017): normal left ventricular systolic function In the ED patient underwent multiple imaging studies: Neck and head CTA with no acute findings Head CT: No evidence of midline shift, mass lesion, hemorrhage or acute infarction. CXR: Minimal basilar atelectasis. No effusion or pneumothorax EKG: Right bundle branch block, regular rate and rhythm (per medicine team read) , unchanged from prior study in 05/2017 On exam patient only with trigeminal sensory deficit and all other cranial nerves within normal limits. Patient able to follow commands and move extremities against gravity. Slow-paced but normal cerebellar exam. Patient was alert and oriented 2 (self and location) and able to answer questions appropriately. Mumbled speech. Since admission patient's symptoms have improved to close to his baseline, per . does not want any kind of therapy as she reports that it is not helpful for him. Neurochecks Patient placed on telemetry Head of bed flat Permissive hypertension Accu-Cheks Consider repeat echo and EEG exam Follow-up: A.m. labs Bedside swallow evaluation Neurology consulted, appreciate recommendations Patient follows with Dr. Flores. Pt was last seen September [address] Flores's PA. Continue with aspirin and Eliquis Patient not candidate for TPA (2) Atrial fibrillation Code(s): I48.91 - Unspecified atrial fibrillation Status: Acute Plan: Patient with history of atrial fibrillation on aspirin and Eliquis Continue with current medication On exam patient with regular rate and rhythm and heart rate within normal limits Patient placed on telemetry Continue to monitor vital signs (3) Hypertension Code(s): I10 - Essential (primary) hypertension Status: Acute Plan: Permissive hypertension Blood pressure ranges 140s-160s/60s-70s Continue to monitor vital signs (4) Parkinson disease Code(s): G20 - Parkinson's disease Status: Acute Plan: Stable Continue with home medication (5) Nutrition, metabolism, and development symptoms Code(s): R63.8 - Other symptoms and signs concerning food and fluid intake Status: Acute Plan: Fluids: 70 mls/HR Electrolytes: Replete as needed Nutrition: N.p.o. pending swallow evaluation. DVT prophylaxis: Patient on Eliquis
[2017-10-15] MEDS ORDERED: Bisacodyl 10 MG Supp RECTAL PRN (19:43)
[2017-10-15] MEDS ORDERED: Senna/Docusate Sodium 8.6/50 MG Tablet PO PRN (19:43)
[2017-10-15] MEDS ORDERED: Propranolol 10 MG Tablet PO SCH (21:00)
[2017-10-15] MEDS ORDERED: Dextrose 50% in Water 50 ML Vial IV.PUSH PRN (21:40)
[2017-10-15] MEDS: prednisoLONE Acetate 1% Opth Susp 5 ML Bottle EACH EYE SCH (23:49)
[2017-10-16] MEDS: Sod Chloride 0.9% Inj 1,000 ML IV.CONT SCH (05:54)
[2017-10-16] MEDS ORDERED: Isosorbide Mononitrate 30 MG ER 24HR Tablet (Imdur) PO SCH (07:00)
[2017-10-16] MEDS ORDERED: Sod Chloride 0.9% Inj 1,000 ML IV.CONT SCH (09:00)
[2017-10-16] MEDS ORDERED: Lisinopril 10 MG Tablet PO SCH (09:00)
[2017-10-16] MEDS: prednisoLONE Acetate 1% Opth Susp 5 ML Bottle EACH EYE SCH (09:09)
[2017-10-16 10:06] LABS: Chol/HDL Ratio 2.27 Ratio; HDL Cholesterol 41.4 mg/dL (40.0-60.0)
--- NOTE | 2017-10-16 10:31 | P.PNFP ---
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 Carlos Flores who presented with an episode of confusion that seem to be increased, generalized weakness and nonresponsiveness to verbal commands. Patient has had an extensive neurologic evaluation in the past and there was a question of one-point about atypical seizures associated with episodes of confusion. Patient's and daughter are patient's primary caretakers. They are familiar with skilled care including physical, occupational and speech therapy. On interview this morning the patient according to the family appears to be back to his baseline. Referred to resident history and physical for complete discussion of past medical history, family history, social history and review of systems. Results - Labs Result diagrams: 10/15/17 16:55 10/15/17 16:55 Abnormal lab results 10/15/17 10/15/17 10/15/17 Range/Units 16:45 16:55 16:55 RBC 4.30 L (4.50-5.90) mil/mm3 POC Hgb (Calc) (13.0-17.0) g/dL Hct 38.5 L (39.0-51.0) % POC Hct (39-51.0) % Plt Count 130 L (150-450) th/mm3 [place] % (Auto) 11.3 H (0.0-8.0) % PT 11.7 H (9.8-11.6) sec POC Chloride (102-111) mmol/L Estimated GFR (>89) mL/min POC Glucose 111 H (68-110) mg/dl Total Creatine Kinase (39-308) U/L Troponin I (0.02-0.05) ng/mL Cholesterol (120-200) mg/dL Urine Occult Blood (Negative) Urine Urobilinogen (Less than 2) mg/dL 10/15/17 10/15/17 10/15/17 Range/Units 16:55 16:55 17:30 RBC (4.50-5.90) mil/mm3 POC Hgb (Calc) 12.2 L (13.0-17.0) g/dL Hct (39.0-51.0) % POC Hct 36.0 L (39-51.0) % Plt Count (150-450) th/mm3 [place] % (Auto) (0.0-8.0) % PT (9.8-11.6) sec POC Chloride 99 L (102-111) mmol/L Estimated GFR 61 L (>89) mL/min POC Glucose (68-110) mg/dl Total Creatine Kinase 35 L (39-308) U/L Troponin I Less than 0.02 L (0.02-0.05) ng/mL Cholesterol (120-200) mg/dL Urine Occult Blood Moderate H (Negative) Urine Urobilinogen 2.0 H (Less than 2) mg/dL 10/16/17 Range/Units 08:55 RBC (4.50-5.90) mil/mm3 POC Hgb (Calc) (13.0-17.0) g/dL Hct (39.0-51.0) % POC Hct (39-51.0) % Plt Count (150-450) th/mm3 [place] % (Auto) (0.0-8.0) % PT (9.8-11.6) sec POC Chloride (102-111) mmol/L Estimated GFR (>89) mL/min POC Glucose (68-110) mg/dl Total Creatine Kinase (39-308) U/L Troponin I (0.02-0.05) ng/mL Cholesterol 94 L (120-200) mg/dL Urine Occult Blood (Negative) Urine Urobilinogen (Less than 2) mg/dL Short CBC 10/15/17 Range/Units 16:55 WBC 5.2 (4.0-11.0) th/mm3 Hgb 13.5 (13.0-17.0) gm/dL Hct 38.5 L (39.0-51.0) % Plt Count 130 L (150-450) th/mm3 BMP 10/15/17 16:55 Sodium 140 Potassium 4.2 Chloride 104 Carbon Dioxide 29.2 BUN 14 Creatinine 1.13 Calcium 9.1 Cardiac Enzymes 10/15/17 Range/Units 16:55 Total Creatine Kinase 35 L (39-308) U/L Troponin I Less than 0.02 L (0.02-0.05) ng/mL Urine 10/15/17 Range/Units 17:30 Urine Color Yellow (Yellw/Straw) Urine Clarity Clear (Clear) Urine pH 6.0 (5.0-8.5) Ur Specific [place] 1.020 (1.002-1.035) Urine Protein Negative (Neg-Trace) mg/dL Urine Glucose (UA) Negative (Negative) mg/dL - Imaging Impressions Chest X-Ray 10/15/17 16:49 CONCLUSION: Minimal basilar atelectasis. No effusion or pneumothorax. Head CT 10/15/17 16:49 CONCLUSION: No acute intracranial findings. Report was called by [ Sitven Lentz at 1703] Head CTA 10/15/17 17:07 CONCLUSION: 1. Diffusely calcified intracranial carotid arteries. 2. No large vessel occlusion or significant intracranial stenosis. Neck CTA 10/15/17 17:07 CONCLUSION: 1. Minimal carotid plaque bilaterally without significant carotid flow- limiting stenosis. 2. Symmetric vertebral arteries with mild circumferential stenosis distally near the vertebrobasilar junction. Physical Exam Vital signs: Vital Signs 10/15/17 16:43 10/15/17 16:47 10/15/17 17:05 Temperature 97.8 F Pulse Rate 67 70 Respiratory Rate 18 18 Blood Pressure 165/80 H 145/64 H Pulse Oximetry 100 98 10/15/17 17:28 10/15/17 20:00 10/15/17 20:15 Temperature Pulse Rate 81 Respiratory Rate 15 Blood Pressure 161/73 H Pulse Oximetry 98 98 99 10/15/17 21:19 10/16/17 00:00 10/16/17 04:00 Temperature 97.4 F L 97.6 F 97.6 F Pulse Rate 76 86 85 Respiratory Rate 20 18 20 Blood Pressure 172/84 H 140/70 162/85 H Pulse Oximetry 93 L 94 L 93 L 10/16/17 08:00 Temperature Pulse Rate Respiratory Rate Blood Pressure Pulse Oximetry 94 L Intake & Output 10/15/17 10/16/17 10/16/17 18:59 06:59 18:59 Intake Total 1420 / 1420 Output Total 1200 / 1200 Balance 220 / 220 Weight 86.183 kg 81.5 kg Intake: IV 1000 / 1000 NS Inj 1,000 ML @ 70 mls/hr IV. 1000 / 1000 CONT .[id number] [facility] Rx#:[id number] Oral 420 / 420 Output: Urine 1200 / 1200 Other: # Voids 2 Date of Last Bowel Movement 10/14/17 Weight On Admission 81.5 kg Narrative: Vital signs noted. Blood pressure 162/85 pulse 85/min respirations 18 temperature 97.6 General appearance: Older gentleman who appears in no acute distress, makes eye contact. Answers questions minimally. Family at bedside. HEENT: Grossly nonlocalizing. Lungs: Diminished. Breath sounds. Cardiac: S1-S2, no S3 or significant murmurs appreciated. Abdomen: Soft, no organomegaly, no tenderness no masses. Extremities: Intact pedal pulses, intact radial pulses, feet and hands are warm and dry, trace edema lower. Refer to resident history and physical for complete discussion of physical exam. Assessment and Plan - Assessment (1) TIA (transient ischemic attack) Code(s): G45.9 - Transient cerebral ischemic attack, unspecified Status: Acute Plan: Patient with multiple history of TIAs and atrial fibrillation on aspirin and Eliquis. Patient was recently admitted in May 2017 for CVA. Imaging studies and EEG test done (head and neck CTA, brain CT and MRI) on 05/2017 did not show any acute findings. Echo (05/2017): normal left ventricular systolic function In the ED patient underwent multiple imaging studies: Neck and head CTA with no acute findings Head CT: No evidence of midline shift, mass lesion, hemorrhage or acute infarction. CXR: Minimal basilar atelectasis. No effusion or pneumothorax EKG: Right bundle branch block, regular rate and rhythm (per medicine team read) , unchanged from prior study in 05/2017 On exam patient only with trigeminal sensory deficit and all other cranial nerves within normal limits. Patient able to follow commands and move extremities against gravity. Slow-paced but normal cerebellar exam. Patient was alert and oriented 2 (self and location) and able to answer questions appropriately. Mumbled speech. Since admission patient's symptoms have improved to close to his baseline, per . does not want any kind of therapy as she reports that it is not helpful for him. Neurochecks Patient placed on telemetry Head of bed flat Permissive hypertension Accu-Cheks Consider repeat echo and EEG exam Follow-up: A.m. labs Bedside swallow evaluation Neurology consulted, appreciate recommendations Patient follows with Dr. Flores. Pt was last seen September [address] Flores's PA. Continue with aspirin and Eliquis Patient not candidate for TPA (2) Atrial fibrillation Code(s): I48.91 - Unspecified atrial fibrillation Status: Acute Plan: Patient with history of atrial fibrillation on aspirin and Eliquis Continue with current medication On exam patient with regular rate and rhythm and heart rate within normal limits Patient placed on telemetry Continue to monitor vital signs (3) Hypertension Code(s): I10 - Essential (primary) hypertension Status: Acute Plan: Permissive hypertension Blood pressure ranges 140s-160s/60s-70s Continue to monitor vital signs (4) Parkinson disease Code(s): G20 - Parkinson's disease Status: Acute Plan: Stable Continue with home medication (5) Nutrition, metabolism, and development symptoms Code(s): R63.8 - Other symptoms and signs concerning food and fluid intake Status: Acute Plan: Fluids: 70 mls/HR Electrolytes: Replete as needed Nutrition: N.p.o. pending swallow evaluation. DVT prophylaxis: Patient on Eliquis - Assessment and Plan Assessment and plan: 87-year-old gentleman with history of Parkinson disease and cerebrovascular disease admitted after an episode of weakness, confusion, decreased responsiveness. Family is comfortable stating he is back to his baseline. They are comfortable taking him home with what would be a clinical diagnosis of a TIA possibly involving the brainstem. He is to resume his current medications. Follow-up with his neurologist and [facility]. Also followed by cardiology. Case discussed and reviewed with the resident team, agree with orders as recorded by the resident team. Al Rooney MD 10/16/2017.
--- NOTE | 2017-10-16 14:59 | ECHRPT ---
Indication: CVA/TIA CONCLUSIONS The left ventricular systolic function is normal with an estimated ejection fraction in the range of 60-65%. Normal left ventricular size. Wall thickness is measured at the upper limits of normal. No regional wall motion abnormalities are present. BP: / HR: Rhythm: MEASUREMENTS (Male / Female) Normal Values Technical Quality: 2D ECHO LV Diastolic Diameter PLAX 2.8 cm 4.2 - 5.9 / 3.9 - 5.3 cm LV Systolic Diameter PLAX 1.9 cm IVS Diastolic Thickness 1.1 cm 0.6 - 1.0 / 0.6 - 0.9 cm LVPW Diastolic Thickness 1.2 cm 0.6 - 1.0 / 0.6 - 0.9 cm LV Relative Wall Thickness 0.8 LVOT Diameter 1.8 cm FINDINGS LEFT VENTRICLE The left ventricular systolic function is normal with an estimated ejection fraction in the range of 60-65%. Normal left ventricular size. Wall thickness is measured at the upper limits of normal. No regional wall motion abnormalities are present. Carson Lawrence MD (Electronically Signed) Final Date:16 October 2017 14:58
--- NOTE | 2017-10-16 15:16 | ECG ---
Date Performed: 10/15/2017 Time Performed: 16:46:49 PTAGE: 87 years EKG: JUNCTIONAL RHYTHM RIGHT BUNDLE BRANCH BLOCK Since previous tracing, no significant change n oted ABNORMAL ECG PREVIOUS TRACING : 06/12/2017 03.02 DOCTOR: Ilan Aceves Interpretating Date/Time 10/16/2017 15:15:13
[2017-10-17 13:36] LABS: Hemoglobin A1c 5.3 % (4.3-6.0)
== END 2017-10-16 11:28 | disposition home or self-care (01) ==
LOC: NEPC 16:34 → N05 16:34 → INTOOBSV 18:33 → PHEDA 18:33 → OBSVTOIN 18:33 → N05 20:50
PROVIDERS: ADMIT Family Medicine; ATTEND Family Medicine